=== PATIENT | female | born 1955 | race Caucasian/White ===

== ENCOUNTER 2021-09-10 10:51 | Emergency (ER) | payer OTHER, MEDICAID, SELFPAY ==
--- NOTE | ~2021-09-10 | XR_ITS ---
EXAMINATION: XR CHEST CLINICAL INFORMATION: Shortness of breath COMPARISON: 2013. TECHNIQUE: 2 views of the chest were obtained. FINDINGS: No distinct airspace consolidation. There is mild increased prominence of pulmonary vasculature but no overt edema. Underlying mild vascular congestion is a consideration. No distinct pleural effusions. XR/XR chest 2V IMPRESSION: Mild increased prominence of pulmonary vasculature compared with 2013. Underlying mild pulmonary vascular congestion is a consideration. No dominant consolidations or pleural effusions.
[2021-09-10 11:46] VITALS: BP 171/62; PULSE 80; RESP 22; TEMP 36.6; O2SAT 90; BMI 53.1
--- NOTE | 2021-09-10 11:52 | ECG_ITS ---
Test Reason : shortness of breath Blood Pressure : / mmHG Vent. Rate : 081 BPM Atrial Rate : 081 BPM P-R Int : 142 ms QRS Dur : 126 ms QT Int : 396 ms P-R-T Axes : 057 -46 090 degrees QTc Int : 460 ms Normal sinus rhythm Left axis deviation Non-specific intra-ventricular conduction block Minimal voltage criteria for LVH, may be normal variant ( Flora product ) Possible Anterolateral infarct , age undetermined Abnormal ECG When compared with ECG of 20-DEC-2007 13:57, QRS duration has increased Borderline criteria for Anterior infarct are now Present Borderline criteria for Anterolateral infarct are now Present Referred By: Generic ED Physician Electronically Signed By:Constantino Nicholas
[2021-09-10 13:14] LABS: Eosinophils Percent Auto 1.7 % (0-4); Hemoglobin 10.5 g/dl (12.0-16.0); Imm Gran Abs Auto 0.03 X10*3/uL (0.00-0.03); Imm Gran Pct Auto 1.3 % (0.0-0.4); Lymphocytes Absolute Auto 0.6 X10*3/uL (1.2-4.9); Lymphocytes Percent Auto 23.6 % (20-40); MANUAL DIFF FLAG SCAN; Mean Corpuscular HGB Conc 30.9 g/dl (31.0-35.0); Mean Corpuscular Hemoglobin 28.8 pg (27.0-33.0); Mean Corpuscular Volume 93.4 fL (80.0-98.0); Mean Platelet Volume 8.8 fL (9.4-12.3); Monocytes Absolute Auto 0.3 X10*3/uL (0.1-1.2); Monocytes Percent Auto 13.3 % (2-11); Neutrophils Absolute Auto 1.4 x10*3/uL (2.0-8.3); Neutrophils Percent Auto 60.1 % (45-73); Platelet Count 120 X10*3/uL (160-400); Red Blood Count 3.64 X10*6/uL (4.20-5.50); Red Cell Distribution Width 16.2 % (11.0-16.0); SCAN SMEAR FLAG 1
[2021-09-10 13:15] LABS: White Blood Count 2.3 X10*3/uL (4.8-10.8)
[2021-09-10 13:28] LABS: Anion Gap 11 (12-20); Blood Urea Nitrogen 43 mg/dL (9-16); Calcium 8.5 mg/dL (8.4-10.2); Carbon Dioxide 26 mmol/L (22-29); Chloride 107 mmol/L (96-108); Creatinine Clr Calc Pharmacy 29.7; Estimated Glomerular Filt Rate 19; Glucose Random 139 mg/dL (60-115); Potassium 4.9 mmol/L (3.3-5.1); Sodium 139 mmol/L (135-145)
[2021-09-10 13:34] LABS: SLIDE REVIEW VERIFIED
[2021-09-10 13:36] LABS: B Type Natriuretic Peptide 349 pg/mL (<100); Troponin-I High Sensitivity 11.2 ng/L (<3.5-17.0)
[2021-09-10] MEDS: dexAMETHasone sod phosphate 10 MG/ML VIAL IVPUSH (19:46)
[2021-09-10 19:59] LABS: Prothrombin Time 11.8 SEC (10.0-13.1)
[2021-09-10 20:01] LABS: Partial Thromboplastin Time 34.7 SEC (24.1-38.0)
[2021-09-10 20:02] VITALS: BP 194/67; PULSE 82; RESP 18; TEMP 37.4; O2SAT 93
[2021-09-10 20:04] VITALS: O2SAT 93
[2021-09-10 20:16] LABS: Troponin-I High Sensitivity 11.9 ng/L (<3.5-17.0)
--- NOTE | 2021-09-10 20:31 | ED_ITS ---
HPI - General Adult General Chief complaint: Upper Respiratory Symptoms Stated complaint: Difficulty breathing Time Seen by Provider: 09/10/21 19:24 Source: patient Mode of arrival: ambulatory Limitations: no limitations History of Present Illness HPI narrative: 66-YEAR-OLD FEMALE WITH HISTORY OF CHF CHRONIC KIDNEY DISEASE, PRESENTS TO ED FOR SHORTNESS OF BREATH SINCE BEING DIAGNOSED WITH COVID ON THE August. PATIENT STATES NO CHEST PAIN AND DENIES ANY INCREASED SWELLING OF LOWER EXTREMITY. PATIENT STATES SHE IS AFRAID TO SLEEP FLAT BECAUSE OF SHORTNESS OF BREATH. PATIENT STATES SLEEP DEprived DUE TO COVID Related Data Previous Rx's Medication Instructions Recorded albuterol sulfate 90 mcg/actuation 2 puff inhalation Q4-6H PRN 09/10/21 aerosol inhaler (Ventolin HFA) shortness of breath or wheezing #8.5 grams dexamethasone 6 mg tablet 6 mg PO DAILY 10 days #10 tabs 09/10/21 (Decadron) Allergies Allergy/AdvReac Type Severity Reaction Status Date / Time lisinopril [LISINOPRIL] Allergy Unknown KIDNEY Unverified 11/09/19 17:38 FAILURE Review of Systems Review of Systems: SHORTNESS OF BREATH AND COVID. PATIENT DENIES ANY CHEST PAIN OR INCREASED SWELLING OF LOWER EXTREMITIES. PATIENT DENIES ANY PLEURISY Yes all other systems are reviewed and are negative PMFSH Social History Social History Advance Directives: No Advance Directives Information Provided: No Physical Exam ED Vital Signs: Vital Signs - 24 hr 09/10/21 11:46 09/10/21 20:02 09/10/21 20:04 Temperature 98 F 99.4 F Pulse Rate 80 82 Respiratory Rate 22 H 18 Blood Pressure 171/62 H 194/67 H Pulse Oximetry 90 L 93 93 Oxygen Delivery Method Room Air Room Air Room Air BMI result Body Mass Index 53.1 Const General: cooperative, healthy appearing, comfortable, no acute distress, well developed, alert, awake and Physically active Orientation/consciousness: patient oriented x3 HENMT Head: Yes normal to inspection, Yes No palpable skull fracture present, Yes normocephalic, Yes atraumatic and No abrasion Eyes General: appearance normal, both eyes and all related structures Neck Neck: Yes normal visual inspection, Yes full ROM, Yes no lymphadenopathy, Yes no meningeal signs, Yes trachea midline, Yes supple, No anterior neck swelling and No tender Chest Chest palpation & inspection: normal inspection of the chest and normal palpation of entire chest wall Resp Effort & Inspection: normal respiratory effort and able to speak in complete sentences Auscultation: clear to auscultation bilaterally Cardio Jugular venous distension: no JVD Heart sounds: S1 normal heart sound present and S2 normal heart sound present GI Inspection: Yes normal to inspection and No abdominal wall ecchymosis Palpation (GI): Soft to palpation, not firm, nontender, no guarding and not rigid General: No CVA tenderness and Yes no CVA tenderness Back/Spine/Pelvis Back: no CVA tenderness, No CVA tenderness and No back tenderness Skin General skin exam: no rashes or lesions noted and elasticity normal Neuro General: patient oriented x3, gait normal, no meningeal signs and CN's II-XI intact bilaterally Cranial nerves: Yes CN's II-XII intact bilaterally Extrem Other: BILATERAL LOWER EXTREMITY SWELLING, PITTING EDEMA PATIENT'S CHF. PATIENT STATES HAS BEEN THE SAME SIZE FOR MONTHS. PATIENT DENIES ANY CALF PAIN Psych Appearance: grossly normal, well kempt and not disheveled Course Course Course Narrative: O2 SAT AT 11:00 WAS 90% NURSE DID RAPID MEDICAL SCREENING INCLUDING LABS AND CHEST X-RAY. Reevaluation(s) Reevaluation #1: SECOND TROPONIN CAME BACK NEGATIVE. EKG NEGATIVE STEMI. PATIENT ON AMBULATION O2 SAT WAS 90-93% WHICH IS HER BASELINE WITH ANY DROPPED TO 85%. PATIENT GIVEN DECADRON. PATIENT WAS INFORMED SHE WILL NEED TO BE ADMITTED FOR OBSERVATION AND IMPROVEMENT OPTIMIZATION OF OXYGEN SATURATION. PATIENT INFORM HER OXYGEN STABLE AT REST BUT DROPPED TO 85 SO SHE WILL NEED MOST LIKELY CONTINUOUS DECADRON WHILE ADMITTED AND REDEMSEVIR AND OTHER COVID COCKTAIL MEDS. PATIENT ALSO I HIGH RISK DUE TO HISTORY OF CHF WHICH CAN deteriorate WITH THE COVID. PATIENT EXPLAINED RISK OF , OK, REspiratory failure, PE, and others and she SHE STILL HAS SIGNED AGAINST MEDICAL ADVICE Time: 20:37 Medical Decision Making MDM Narrative Medical decision making narrative: cOVID VS. chf Lab Data Result diagrams: 09/10/21 13:04 09/10/21 13:04 Labs: Lab Results 09/10/21 09/10/21 09/10/21 Range/Units 13:04 13:04 13:04 WBC 2.3 L (4.8-10.8) X10*3/uL RBC 3.64 L (4.20-5.50) X10*6/uL Hgb 10.5 L (12.0-16.0) g/dl Hct 34.0 L (37.0-47.0) % MCV 93.4 (80.0-98.0) fL MCH 28.8 (27.0-33.0) pg MCHC 30.9 L (31.0-35.0) g/dl RDW 16.2 H (11.0-16.0) % Plt Count 120 L (160-400) X10*3/uL MPV 8.8 L (9.4-12.3) fL Immature Gran % (Auto) 1.3 H (0.0-0.4) % Neut % (Auto) 60.1 (45-73) % Lymph % (Auto) 23.6 (20-40) % [place] % (Auto) 13.3 H (2-11) % Eos % (Auto) 1.7 (0-4) % Baso % (Auto) 0.0 (0-2) % Lymph # (Auto) 0.6 L (1.2-4.9) X10*3/uL [place] # (Auto) 0.3 (0.1-1.2) X10*3/uL Eos # (Auto) 0.0 (0.0-0.4) X10*3/uL Baso # (Auto) 0.0 (0.0-0.2) X10*3/uL Abs Immat Gran (auto) 0.03 (0.00-0.03) X10*3/uL Absolute Neuts (auto) 1.4 L (2.0-8.3) x10*3/uL Absolute Nucleated RBC 0.000 (0.0-0.012) X10*3/uL Nucleated RBC % (auto) 0.0 (0.0-0.2) /100WBC Smear Tech's Comments VERIFIED PT (10.0-13.1) SEC INR (0.9-1.1) APTT (24.1-38.0) SEC Sodium 139 (135-145) mmol/L Potassium 4.9 (3.3-5.1) mmol/L Chloride 107 (96-108) mmol/L Carbon Dioxide 26 (22-29) mmol/L Anion Gap 11 L (12-20) BUN 43 H (9-16) mg/dL Creatinine 2.49 H (0.5-1.4) mg/dL Estim Creat Clear Calc 29.7 Estimated GFR 19 Random Glucose 139 H (60-115) mg/dL Calcium 8.5 (8.4-10.2) mg/dL Troponin I High Sens 11.2 (<3.5-17.0) ng/L B-Natriuretic Peptide 349 H (<100) pg/mL 09/10/21 09/10/21 Range/Units 19:41 19:41 WBC (4.8-10.8) X10*3/uL RBC (4.20-5.50) X10*6/uL Hgb (12.0-16.0) g/dl Hct (37.0-47.0) % MCV (80.0-98.0) fL MCH (27.0-33.0) pg MCHC (31.0-35.0) g/dl RDW (11.0-16.0) % Plt Count (160-400) X10*3/uL MPV (9.4-12.3) fL Immature Gran % (Auto) (0.0-0.4) % Neut % (Auto) (45-73) % Lymph % (Auto) (20-40) % [place] % (Auto) (2-11) % Eos % (Auto) (0-4) % Baso % (Auto) (0-2) % Lymph # (Auto) (1.2-4.9) X10*3/uL [place] # (Auto) (0.1-1.2) X10*3/uL Eos # (Auto) (0.0-0.4) X10*3/uL Baso # (Auto) (0.0-0.2) X10*3/uL Abs Immat Gran (auto) (0.00-0.03) X10*3/uL Absolute Neuts (auto) (2.0-8.3) x10*3/uL Absolute Nucleated RBC (0.0-0.012) X10*3/uL Nucleated RBC % (auto) (0.0-0.2) /100WBC Smear Tech's Comments PT 11.8 (10.0-13.1) SEC INR 1.0 (0.9-1.1) APTT 34.7 (24.1-38.0) SEC Sodium (135-145) mmol/L Potassium (3.3-5.1) mmol/L Chloride (96-108) mmol/L Carbon Dioxide (22-29) mmol/L Anion Gap (12-20) BUN (9-16) mg/dL Creatinine (0.5-1.4) mg/dL Estim Creat Clear Calc Estimated GFR Random Glucose (60-115) mg/dL Calcium (8.4-10.2) mg/dL Troponin I High Sens 11.9 (<3.5-17.0) ng/L B-Natriuretic Peptide (<100) pg/mL ECG Data Interpretation: Normal sinus rhythm. Ventricular rate 81. Pr interval 142. QRS 126 QTC 460. Negative STEMI Discharge Plan Discharge Clinical Impression: COVID-19, CHF (congestive heart failure) Patient Disposition: Left Against Medical Advice Instructions: Heart Failure (DC), COVID-19 (Coronavirus Disease 2019) (ED) Additional Instructions: YOU WOULD NOT LIKE TO BE ADMITTED. RETURN TO THE ED IMMEDIATELY FOR ANY CHEST PAIN, SHORTNESS OF BREATH, INCREASED LEG SWELLING, CALF PAIN, COUGHING UP BLOOD, WEAKNESS, DIZZINESS, OR ANY OTHER CONCERNING SYMPTOMS Prescriptions: New dexamethasone [Decadron] 6 mg tablet 6 mg PO DAILY 10 Days Qty: 10 0RF albuterol sulfate [Ventolin HFA] 90 mcg/actuation HFA aerosol inhaler 2 puff inhalation Q4-6H PRN (Reason: shortness of breath or wheezing) Qty: 8.5 0RF Stand Alone Forms: Against Medical Advice Interventions: ED Discharge Assessment Last Done: 09/10/21 21:03 Discharge Date/Time: 09/10/21 21:04 Print Language: Chadian
== END 2021-09-10 21:04 | disposition left against medical advice (07) ==
PROVIDERS: Physician Assistant; Emergency Provider Internal Medicine
DX: U07.1 COVID-19 (principal); R06.02 Shortness of breath; I50.9 Heart failure, unspecified; Z79.899 Other long term (current) drug therapy
CPT/HCPCS: 36415; 71046; 80048; 83880; 84484; 85025; 85610; 85730; 93005; 96374; 99284; J1100

== ENCOUNTER 2022-12-02 10:45 | Outpatient (AMB) | payer OTHER, MEDICAID, SELFPAY ==
--- NOTE | 2022-12-02 11:24 | MHC.PC.OV ---
Vital Signs 12/02/22 11:25 Height 5 ft 3 in Weight 295 lb 6 oz BMI 52.3 BP 138/76 Blood Pressure Location Rt brachial Position Sitting Pulse 69 Pulse Source Pulse Oximeter Pulse Oximetry (%) 98 Oxygen Delivery Method Room Air Intake Visit Reasons: 6 month follow up Allergies lisinopril [LISINOPRIL] Allergy (Unknown, Unverified 12/02/22 12:33) KIDNEY FAILURE Medication List - Last Reconciled 12/02/22 by DESI Mendieta acetaminophen 500 mg PO Q6H PRN albuterol sulfate 90 mcg/actuation (Ventolin HFA) 2 puffs inhalation Q4-6H PRN B-complex with vitamin C 1 tab PO DAILY carvedilol mg PO cholecalciferol (vitamin D3) 50 mcg PO DAILY furosemide 60 mg PO DAILY glipizide mg PO BID insulin glargine (Lantus Solostar U-100 Insulin) units subcut isosorbide mononitrate ER mg PO levothyroxine mcg PO DAILY pioglitazone mg PO DAILY rosuvastatin mg PO DAILY Tobacco use date assessed: 12/02/22 Fall risk assessment: No Falls in past year Last assessed Fall Risk: 12/02/22 Dental Screening Dental Screen Date: 12/02/22 Did you have a dental visit in the last 12 months?: Yes Did you have a dental problem in the last 6 months where you did not have access to dental care?: No Was dental information given to patient?: Patient has dentist HPI 6 month follow up HPI Details HTN: Blood pressure is stable, managed with carvedilol 6.25mg, furosemide 60mg, and isosorbide mononitrate 30mg. Denies chest pain, shortness of breath, headache, dizziness, and blurred vision. Pt follows up with endo, cardiology, and nephrology. Will order more lab work [facility] Medical History Diabetes Lower extremity weakness Social History Housing: House Patient Tobacco Use Status: Former Tobacco user Quit Date: 04/06/2012 e-Cigarette/Vaping Use: Never Used Second Hand Smoke Exposure: No Current occupational status: retired Cognitive needs: No Hearing needs: No Vision needs: No Questionnaire Thrive Questionnaire Date Thrive assessed: 11/09/22 PRIYA-7 AMB Questionnaire PRIYA-7 Date PRIYA - 7 assessed: 12/31/21 Source: Developed by DrsEze Riggs, Carol Sullivan, Turner Sinha and colleagues, with an educational thom from [employer]. Review of Systems Const Reports as per HPI Physical exam (Primary Care) Vital Signs: Last Vital Signs Pulse 69 12/02/22 11:25 Pulse Ox 98 12/02/22 11:25 Oxygen Delivery Method Room Air 12/02/22 11:25 BMI result Body Mass Index 52.3 Tobacco/Smoking Status: Tobacco use Status Tobacco use date assessed 12/02/22 12/02/22 11:30 Patient Tobacco Use Status Former Tobacco user 12/02/22 11:30 e-Cigarette/Vaping Use Never Used 12/02/22 11:30 Thrive Assessment: Date of Thrive Assessment Date Thrive assessed 12/31/21 12/02/22 11:30 Const Other: using rolling/seated walker General: cooperative Nutritional Appearance: obese morbidly obese Orientation/consciousness: patient oriented x3 Resp Effort & Inspection: normal respiratory effort Auscultation: clear to auscultation bilaterally Cardio Rate: regular rate Rhythm: regular rhythm Heart sounds: S1 normal heart sound present, S2 normal heart sound present and Murmur heart sound present (? faint systolic) Neuro General: patient oriented x3 Extrem Other: +1 pitting to BLE Psych Appearance: grossly normal Mental Status: mental status grossly normal Speech and movement: Normal speech and movement present Affect: normal affect Attitude: cooperative Thought process: Normal thought process present Thought content: Normal thought content present Insight: Good insight present (Psych) Judgement: Good judgement present (Psych) Assessment and Plan Assessment & Plan (1) HTN (hypertension): Code(s): I10 - Essential (primary) hypertension Plan: Labs ordered Plan The patient agreed to the use of a health care / medical job titles for this encounter. Scribed for DESI Giang by Perla Rizo health care / medical job titles, on 12/02/2022 at 11:35 EST Orders: Orders Comprehensive [place]. Panel Fast Today I10 - Essential (primary) hypertension TSH reflex Free T4 Today I10 - Essential (primary) hypertension Complete Blood Count Auto Diff Today I10 - Essential (primary) hypertension UA CC w/rflx Micro + Cult Today I10 - Essential (primary) hypertension Lipid Panel Today I10 - Essential (primary) hypertension Coding Level of Care Code Est Pt Level 3 (94376) Diagnoses HTN (hypertension) I10
[2022-12-02 11:25] VITALS: BP 138/76; PULSE 69; O2SAT 98; BMI 52.3
== END 2022-12-02 12:12 | disposition home or self-care (01) ==
PROVIDERS: Visit Provider Nurse Practitioner Family
DX: I10 Essential (primary) hypertension (principal)
CPT/HCPCS: 99213

== ENCOUNTER 2023-04-30 08:23 | Outpatient (REF) | payer OTHER, MEDICAID, SELFPAY ==
[2023-04-30 11:24] LABS: MANUAL DIFF FLAG NO
[2023-04-30 11:32] LABS: Basophils Percent Auto 0.6 % (0-2); Eosinophils Absolute Auto 0.3 X10*3/uL (0.0-0.4); Eosinophils Percent Auto 4.2 % (0-4); Hematocrit 36.2 % (37.0-47.0); Hemoglobin 11.1 g/dl (12.0-16.0); Imm Gran Abs Auto 0.04 X10*3/uL (0.00-0.03); Imm Gran Pct Auto 0.6 % (0.0-0.4); Lymphocytes Absolute Auto 0.6 X10*3/uL (1.2-4.9); Lymphocytes Percent Auto 9.4 % (20-40); Mean Corpuscular HGB Conc 30.7 g/dl (31.0-35.0); Mean Corpuscular Hemoglobin 28.8 pg (27.0-33.0); Mean Platelet Volume 9.5 fL (9.4-12.3); Monocytes Absolute Auto 0.5 X10*3/uL (0.1-1.2); Monocytes Percent Auto 7.3 % (2-11); Neutrophils Absolute Auto 5.1 x10*3/uL (2.0-8.3); Neutrophils Percent Auto 77.9 % (45-73); Platelet Count 199 X10*3/uL (160-400); Red Blood Count 3.85 X10*6/uL (4.20-5.50); Red Cell Distribution Width 16.6 % (11.0-16.0); White Blood Count 6.6 X10*3/uL (4.8-10.8)
[2023-04-30 12:03] LABS: Alanine Aminotransferase 17 U/L (0-31); Albumin Level 4.1 g/dL (3.5-5.0); Alkaline Phosphatase 69 U/L (39-117); Anion Gap 17 (12-20); Aspartate Amino Transferase 14 U/L (5-31); Bilirubin Total 0.5 mg/dL (0.0-1.0); Blood Urea Nitrogen 69 mg/dL (9-16); Calcium 9.4 mg/dL (8.4-10.2); Carbon Dioxide 30 mmol/L (22-29); Chloride 103 mmol/L (96-108); Estimated Glomerular Filt Rate 16; Glucose Random 92 mg/dL (60-115); Magnesium 2.3 mg/dL (1.6-2.6); Phosphorus 4.6 mg/dL (2.7-4.5); Potassium 4.7 mmol/L (3.3-5.1); Sodium 145 mmol/L (135-145); Total Protein 7.5 g/dL (6.5-8.0); Uric Acid 9.8 mg/dL (2.4-5.7)
[2023-04-30 12:08] LABS: Creatinine Urine 72.49 mg/dL; Protein/Creatinine Ratio, Ur 1.74 (<0.2); Total Protein Urine Random 126 mg/dL (<12)
[2023-04-30 12:12] LABS: Parathyroid Hormone Intact 399.1 pg/mL (8.7-77.1)
[2023-04-30 12:17] LABS: Vitamin D 25-OH Total 33.2 ng/mL (>30)
== END 2023-04-30 08:24 | disposition home or self-care (01) ==
LOC: HO.HMGCLDS 08:23
PROVIDERS: PCP Nurse Practitioner Family; Visit Provider Internal Medicine Nephrology
DX: I13.0 Hypertensive heart and chronic kidney disease with heart failure and stage 1 through stage 4 chronic kidney disease, or unspecified chronic kidney disease (principal); E11.22 Type 2 diabetes mellitus with diabetic chronic kidney disease; N18.4 Chronic kidney disease, stage 4 (severe); I50.9 Heart failure, unspecified; R80.8 Other proteinuria; E87.5 Hyperkalemia; R60.9 Edema, unspecified
CPT/HCPCS: 36415; 80053; 82306; 82570; 83735; 83970; 84100; 84156; 84550; 85025

== ENCOUNTER 2023-07-29 14:49 | Outpatient (AMB) | payer OTHER, MEDICAID, SELFPAY ==
--- NOTE | 2023-07-29 15:31 | A.OFFPC_ITS ---
Vital Signs 07/29/23 15:34 Height 5 ft 3 in Weight 299 lb BMI 53.0 BP 128/78 Blood Pressure Location Rt brachial Position Sitting Pulse 69 Pulse Source Pulse Oximeter Pulse Oximetry (%) 96 Oxygen Delivery Method Room Air Intake Visit Reasons: 6 month fu/multiple issues Intake Note: Patient here to discuss recent SOB. Allergies lisinopril [LISINOPRIL] Allergy (Unknown, Unverified 07/29/23 15:38) KIDNEY FAILURE cephalexin Adverse Reaction (Mild, Verified 07/29/23 15:38) hives sulfamethoxazole [From Sulfamethoxazole-Trimethoprim] Adverse Reaction (Mild, Verified 07/29/23 15:38) Hives trimethoprim [From Sulfamethoxazole-Trimethoprim] Adverse Reaction (Mild, Verified 07/29/23 15:38) Hives Tobacco use date assessed: 07/29/23 Fall risk assessment: 1 Fall in past year Last assessed Fall Risk: 07/29/23 Dental Screening Dental Screen Date: 07/29/23 Was dental information given to patient?: Patient declined HPI 6 month fu/multiple issues HPI Details Pt is in tears, reporting some depression due to the fact that she will be going on dialysis in the future, and has a close friend that is dying. Pt denies any si or hi. I explained to her the dialysis does not mean , and the fact that the dialysis centers tend to be a very friendly environment (staff and other dialysis pts). She mentioned 4 hrs 3 times a week, which i explained that is a total of 12hrs out of a whole week. Pt did seem much more at ease after our conversation. SHe further brought up fears of going over bridges, being in a car altogether. Plan is to start a very low dose of sertraline and follow up with her. [facility] Medical History Diabetes Lower extremity weakness Social History Housing: House Patient Tobacco Use Status: Former Tobacco user e-Cigarette/Vaping Use: Never Used Second Hand Smoke Exposure: No Current occupational status: retired Cognitive needs: No Hearing needs: No Vision needs: No Questionnaire PHQ-9 Over the last 2 weeks, how often have you been bothered by any of the following problems? 1. Little interest or pleasure in doing things: not at all 2. Feeling down, depressed, or hopeless: several days 3. Trouble falling or staying asleep, or sleeping too much: not at all 4. Feeling tired or having little energy: several days 5. Poor appetite or overeating: not at all 6. Feeling bad about yourself - or that you are a failure or have let yourself or your family down: not at all 7. Trouble concentrating on things, such as reading the newspaper or watching television: not at all 8. Moving or speaking so slowly that other people could have noticed. Or the opposite - being so fidgety or restless that you have been moving around a lot more than usual: not at all 9. Thoughts that you would be better off or of hurting yourself in some way: not at all Total score: 2 Depression Screening Interpretation: Negative Depression Screening Done: Yes 19345 - PHQ-9 Billing: Yes Source: Developed by Drs. Cornel Riggs, Carol Sullivan, Turner Sinha and colleagues, with an educational thom from [employer]. Thrive Questionnaire Date Thrive assessed: 07/29/23 I am a: Patient What is your living situation today?: I have a steady place to live Within the past 12 months, did the food you bought not last and you didn't have the money to get more?: Never true Within the past 12 months, did you worry whether your food would run out before you got money to buy more?: Never true Do you have trouble paying for medicines?: No Do you have trouble getting transportation to medical appointments?: No Do you have trouble paying your heating and electricity bill?: No Do you have trouble taking care of your child, family member or friend?: No Do you have trouble with day-to-day activities such as bathing, preparing meals, shopping, managing finances, etc.?: No Are you currently unemployed and looking for a job?: No Are you interested in more education?: No Currently or been in a relationship where the following occur: I choose not to answer this question THRIVE Score: 0 PRIYA-7 AMB Questionnaire PRIYA-7 Date PRIYA - 7 assessed: 07/29/23 Feeling nervous, anxious, or on edge: 1 = Several days Not being able to stop or control worryin = Not at all Worrying too much about different things: 0 = Not at all Trouble relaxin = Not at all Being so restless that it is hard to sit still: 0 = Not at all Becoming easily annoyed or irritable: 0 = Not at all Feeling afraid as if something awful might happen: 0 = Not at all Total PRIYA-7 score (0-4 normal; 5-9 mild; 10-14 moderate; 15-21 severe): 1 Source: Developed by Drs. Cornel Riggs, Carol Sullivan, Turner Sinha and colleagues, with an educational thom from [employer]. PRIYA-7 Assessment Billing PRIYA-7 Assessment Tool: PRIYA-7 Assessment 13120 Review of Systems Const Reports as per HPI Physical exam (Primary Care) Vital Signs: Last Vital Signs Pulse 69 07/29/23 15:34 BP 128/78 07/29/23 15:34 Pulse Ox 96 07/29/23 15:34 Oxygen Delivery Method Room Air 07/29/23 15:34 BMI result Body Mass Index 53.0 Tobacco/Smoking Status: Tobacco use Status Tobacco use date assessed 07/29/23 07/29/23 15:41 Patient Tobacco Use Status Former Tobacco user 07/29/23 15:31 e-Cigarette/Vaping Use Never Used 07/29/23 15:31 PHQ-9: PHQ-9 Score PHQ-9: Total score 2 07/29/23 16:01 Depression Screening Interpretation: Negative Thrive Assessment: Date of Thrive Assessment Date Thrive assessed 07/29/23 07/29/23 15:59 Currently or been in a relationship where the following occur: I choose not to answer this question Const Other: using a rolling walker General: cooperative Nutritional Appearance: obese morbidly obese Orientation/consciousness: patient oriented x3 Resp Effort & Inspection: normal respiratory effort Auscultation: clear to auscultation bilaterally Cardio Rate: regular rate Rhythm: regular rhythm Heart sounds: S1 normal heart sound present and S2 normal heart sound present Neuro General: patient oriented x3 Psych Appearance: grossly normal Mental Status: mental status grossly normal Speech and movement: Normal speech and movement present Affect: normal affect Attitude: cooperative Thought process: Normal thought process present Thought content: Normal thought content present Insight: Good insight present (Psych) Judgement: Good judgement present (Psych) Assessment and Plan Assessment & Plan (1) Tearfulness: Code(s): R45.89 - Other symptoms and signs involving emotional state Plan: pt was more at ease after explaining the dialysis process. (2) Depression with anxiety: Code(s): F41.8 - Other specified anxiety disorders Plan: starting low dose sertraline, will follow up with her Plan The patient agreed to the use of a medical social worker for this encounter. Scribed for DESI Giang by Perla Rizo medical social worker, on 07/29/2023 at 16:00 EST. Medications: New sertraline 25 mg PO DAILY 90 tabs 0RF Refilled miscellaneous medical supply Access ramp due to weakness of Bilat lower extremities. 1 ea miscellaneous .daily use 1 ea 0RF Coding Level of Care Code Est Pt Level 3 (61380) Diagnoses Tearfulness R45.89 Depression with anxiety F41.8 Additional Codes PRIYA-7 Assessment Billing - PRIYA-7 Assessment Tool: PRIYA-7 Assessment 10653 ([id number])
[2023-07-29 15:34] VITALS: BP 128/78; PULSE 69; O2SAT 96; BMI 53.0
== END 2023-07-29 16:40 | disposition home or self-care (01) ==
PROVIDERS: PCP Nurse Practitioner Family; Visit Provider Nurse Practitioner Family
DX: R45.89 Other symptoms and signs involving emotional state (principal); F41.8 Other specified anxiety disorders
CPT/HCPCS: 99213

== ENCOUNTER 2023-11-04 09:20 | Outpatient (REF) | payer OTHER, MEDICAID, SELFPAY ==
--- NOTE | ~2023-11-04 | XR_ITS ---
EXAMINATION: XR CHEST CLINICAL INFORMATION: Orthopnea COMPARISON: 09/10/2021 TECHNIQUE: 2 views of the chest were obtained. FINDINGS: There is marked cardiomegaly. There is pulmonary vascular congestion with upper zone redistribution and interstitial prominence. No consolidations or pleural effusions are seen XR/XR chest 2V IMPRESSION: Cardiomegaly with mild CHF. Electronically signed by: Joel Hall MD 11/04/2023 03:25 PM EDT RP
[2023-11-04 13:21] LABS: Appearance Urine Cloudy; Color Urine Yellow; Glucose Urine UA Negative (Negative); Leukocyte Esterase Urine Moderate (2+) (Negative); Nitrite Urine Negative (Negative); Specific Gravity - Urine 1.015 (1.005-1.025); UMIC TRIGGER UACC YES; Urine Blood Negative (Negative); Urine Ketones Negative (Negative); Urine Protein 100 (2+) mg/dL (Neg-Trace)
[2023-11-04 13:24] LABS: MANUAL DIFF FLAG NO
[2023-11-04 13:25] LABS: Bacteria Urine 4+ (None Seen); RBC Urine 0-2 /HPF (0-2); Squamous Epithelial Cell Urine 0-2 /HPF (0-2); UACC Culture Trigger YES; WBC Urine >50 /HPF (0-5)
[2023-11-04 13:59] LABS: Basophils Percent Auto 0.3 % (0-2); Eosinophils Absolute Auto 0.2 X10*3/uL (0.0-0.4); Eosinophils Percent Auto 2.5 % (0-4); Hematocrit 37.6 % (37.0-47.0); Hemoglobin 11.6 g/dl (12.0-16.0); Imm Gran Abs Auto 0.06 X10*3/uL (0.00-0.03); Imm Gran Pct Auto 0.9 % (0.0-0.4); Lymphocytes Absolute Auto 0.6 X10*3/uL (1.2-4.9); Lymphocytes Percent Auto 9.9 % (20-40); Mean Corpuscular HGB Conc 30.9 g/dl (31.0-35.0); Mean Corpuscular Hemoglobin 30.2 pg (27.0-33.0); Mean Corpuscular Volume 97.9 fL (80.0-98.0); Mean Platelet Volume 9.6 fL (9.4-12.3); Monocytes Absolute Auto 0.4 X10*3/uL (0.1-1.2); Monocytes Percent Auto 6.4 % (2-11); Neutrophils Absolute Auto 5.1 x10*3/uL (2.0-8.3); Platelet Count 166 X10*3/uL (160-400); Red Blood Count 3.84 X10*6/uL (4.20-5.50); Red Cell Distribution Width 16.9 % (11.0-16.0); White Blood Count 6.4 X10*3/uL (4.8-10.8)
[2023-11-04 14:04] LABS: Parathyroid Hormone Intact 368.1 pg/mL (8.7-77.1)
[2023-11-04 14:13] LABS: Alanine Aminotransferase 17 U/L (0-31); Albumin Level 4.2 g/dL (3.5-5.0); Alkaline Phosphatase 55 U/L (39-117); Anion Gap 14 (12-20); Aspartate Amino Transferase 17 U/L (5-31); Bilirubin Total 0.5 mg/dL (0.0-1.0); Blood Urea Nitrogen 64 mg/dL (9-16); Calcium 9.8 mg/dL (8.4-10.2); Carbon Dioxide 28 mmol/L (22-29); Chloride 106 mmol/L (96-108); Cholesterol 107 mg/dL (<200); Estimated Glomerular Filt Rate 16; Glucose Random 66 mg/dL (60-115); HDL Cholesterol 37 mg/dL (>40); LDL Cholesterol Calculated 51 mg/dL (<100); Magnesium 2.6 mg/dL (1.6-2.6); Phosphorus 4.2 mg/dL (2.7-4.5); Potassium 4.8 mmol/L (3.3-5.1); Sodium 143 mmol/L (135-145); Total Protein 7.3 g/dL (6.5-8.0); Triglycerides 99 mg/dL (<150); Uric Acid 9.7 mg/dL (2.4-5.7)
[2023-11-04 14:17] LABS: TSH reflex Free T4 3.53 uIU/mL (0.32-4.0); Vitamin D 25-OH Total 28.7 ng/mL (>30)
[2023-11-04 14:22] LABS: Creatinine Urine 64.68 mg/dL; Protein/Creatinine Ratio, Ur 1.35 (<0.2); Total Protein Urine Random 87 mg/dL (<12)
== END 2023-11-04 09:21 | disposition home or self-care (01) ==
LOC: HO.HMGCX 09:20
PROVIDERS: PCP Nurse Practitioner Family; Referring Provider Internal Medicine Nephrology; Visit Provider Nurse Practitioner Family
DX: I13.0 Hypertensive heart and chronic kidney disease with heart failure and stage 1 through stage 4 chronic kidney disease, or unspecified chronic kidney disease (principal); E11.22 Type 2 diabetes mellitus with diabetic chronic kidney disease; N18.4 Chronic kidney disease, stage 4 (severe); I50.9 Heart failure, unspecified; D63.1 Anemia in chronic kidney disease; E55.9 Vitamin D deficiency, unspecified; E78.5 Hyperlipidemia, unspecified; E87.5 Hyperkalemia; R80.8 Other proteinuria; E21.1 Secondary hyperparathyroidism, not elsewhere classified
CPT/HCPCS: 36415; 71046; 80053; 80061; 81001; 82306; 82570; 83735; 83970; 84100; 84156; 84443; 84550; 85025; 87086; 87088; 87186

== ENCOUNTER → 2023-11-09 13:49 | Outpatient (REF) | payer OTHER, MEDICAID, SELFPAY ==
--- NOTE | 2023-11-09 13:53 | CA_ITS ---
Transthoracic Echocardiogram Patient (Last, First, Middle): Kiara Pollack, Gender: Female Date of : 1955 Age: 68 Procedure Date: 11/09/2023 Procedure Type: Transthoracic Echocardiogram Location: OP Height: 160.02 cm Weight: 136.08 kg BSA: 2.30 m2 Heart Rate: 76 bpm BP: 138 / 82 mmHg Wheat [employer] Oats Flake Miller: Referring MD: Gómez Peoples [facility]- Cadmium Plater: Nestor Iqbal MD Symptoms: R06.01 - Orthopnea Study Quality: Adequate ECG Rhythm: Sinus Conclusions: - 1. Normal LV ejection fraction 55-60% with mild LVH with impaired relaxation filling pattern 2. Mildly dilated left atrium 3. Normal cardiac valvular Doppler 4. Normal RV systolic pressure 5. Moderate pericardial effusion without any obvious evidence of tamponade Findings Left Ventricle Normal left ventricular size and systolic function. There is mildly increased left ventricular wall thickness. The visually estimated ejection fraction is between 55-60%. Spectral Doppler is indicative of an impaired relaxation filling pattern. E/E prime ratio is between 8 and 15 consistent with indeterminate filling pressures. Right Ventricle Normal right ventricular cavity size and systolic function. Atria The left atrium is mildly dilated. Interatrial shunt cannot be excluded. The right atrium is normal in size. Aortic Valve The aortic valve was not well visualized. There is no aortic valve stenosis. There is no aortic valve regurgitation. Mitral Valve Normal mitral valve structure and function. There is trace mitral valve regurgitation. There is no mitral valve stenosis. Pulmonic Valve The pulmonic valve was not well visualized. Tricuspid Valve Likely normal tricuspid valve structure and function. There is trace tricuspid valve regurgitation. The right ventricular systolic pressure is normal. The right ventricular systolic pressure is 34 mmHg. Normal right atrial pressure. There is no evidence of pulmonary hypertension. Great Vessels The aorta was not well visualized. The pulmonary artery was not well visualized. There is no dilatation of the ascending aorta measuring 2.80 cm. Venous The inferior vena cava is normal in size and collapses greater than 50% with inspiration. Pericardium/Pleural There is a moderate circumferential pericardial effusion. There are no definitive echocardiographic findings of tamponade physiology. The inferior vena cava is normal in size with preserved respiratory variability. No discernable variation of the mitral valve and tricuspid valve Doppler velocities with respiration. Prior Study Comparison No prior study available for comparison. Measurements 2D Linear Measurements IVSd: 1.35 0.6-0.9/0.6-1.0 cm LVIDd: 4.23 3.9-5.3/4.2-5.9 cm LVIDd Index: 1.84 2.4-3.2/2.2-3.1 cm/m2 LVIDs: 2.72 2.0-3.6 cm LVPWd: 1.31 0.7-1.1 cm Ao Root: 2.80 2.1-3.5 cm LA Diam: 4.70 2.7-3.8/3.0-4.0 cm LAIDs Index: 2.04 1.5-2.3 cm/m2 LV Mass: 261.45 67-162/88-224 g LV Mass Index: 113.67 43-95/49-115 g/m2 LVOT Diam: 2.40 3.0+(-)1.3 cm Mitral Valve MV Pk E: 0.98 MV PK A: 1.01 MV Decel Time: 187.00 E/A: 1.00 E'Lateral: 4.13 E'Medial: 5.55 E/E' Med: 17.60 E/E' Lat: 23.70 PHT: 55.00 MVA PHT: 4.00 Decel [place]: 5.25 Aortic Valve AoV Pk Alexandru: 1.54 AoV Mn Alexandru: 1.06 AoV VTI: 0.40 AoV Pk Grad: 9.00 Aov Mn Grad: 5.00 LALITHA Cont.VTI: 2.39 LVOT LVOT Pk Alexandru: 0.77 LVOT Mn Alexandru: 0.55 LVOT VTI: 0.21 LVOT Pk Grad: 2.00 LVOT Mn Grad: 1.00 LVOT Diam: 2.40 LVOT Area: 4.52 Diastolic Function MV Pk E: 0.98 MV Pk A: 1.01 E/A: 1.00 E'Medial: 5.55 E/E' Med: 17.60 E' Laterial: 4.13 E/E' Lat: 23.70 Right Ventricle TAPSE (mm): 28.00 TVS' Alexandru: 12.00 Tricuspid Valve TR Pk Alexandru: 2.80 TR Pk Grad: 31.00 RA Press: 3.00 RVSP: 34.00 Great Vessels Aorta Ao Root-2D: 2.80 2.0-3.7 cm Ao Asc: 2.80 2.1-3.4 cm Pulmonary Valve PV Pk Alexandru: 0.99 Peak PV Grad: 4.00 Updated in Other Vendor System with Status of Final Nestor Iqbal MD electronically signed on 11/10/2023 6:12:07 PM with status of Final
== END ==
LOC: HO.CARD 13:49
PROVIDERS: PCP Nurse Practitioner Family; Visit Provider Nurse Practitioner Family
DX: R06.01 Orthopnea (principal)
CPT/HCPCS: 93306

== ENCOUNTER → 2023-11-09 13:53 | Outpatient (BNV) | payer OTHER, MEDICAID, SELFPAY | PROVIDERS: PCP Nurse Practitioner Family; Visit Provider Internal Medicine Cardiovascular Disease | DX: I31.39 Other pericardial effusion (noninflammatory) (principal); R93.1 Abnormal findings on diagnostic imaging of heart and coronary circulation | CPT/HCPCS: 93306 ==

== ENCOUNTER 2023-12-07 12:51 | Outpatient (AMB) | payer OTHER, MEDICAID, SELFPAY ==
[2023-12-07 12:55] VITALS: BP 124/74; PULSE 79; O2SAT 93; BMI 54.0
--- NOTE | 2023-12-07 12:55 | MHC.PC.OV ---
Vital Signs 12/07/23 12:55 Height 5 ft 3 in Weight 305 lb BMI 54.0 BP 124/74 Blood Pressure Location Rt brachial Position Sitting Pulse 79 Pulse Source Pulse Oximeter Pulse Oximetry (%) 93 Oxygen Delivery Method Room Air Intake Visit Reasons: Annual PE Intake Note: pt is here for annual exam,last a1c was 08/2022 for 8.3%, A1c done in office today. Shoeblack Required: No Accompanied by: Self / Same As Patient Allergies lisinopril [LISINOPRIL] Allergy (Unknown, Verified 12/07/23 17:03) KIDNEY FAILURE cephalexin Adverse Reaction (Mild, Verified 12/07/23 17:03) hives sulfamethoxazole [From Sulfamethoxazole-Trimethoprim] Adverse Reaction (Mild, Verified 12/07/23 17:03) Hives trimethoprim [From Sulfamethoxazole-Trimethoprim] Adverse Reaction (Mild, Verified 12/07/23 17:03) Hives Medication List - Last Reconciled 12/07/23 by WING [place] acetaminophen 500 mg PO Q6H PRN aspirin (Adult Low Dose Aspirin) 81 mg orally 3x week; B-complex with vitamin C 1 tab PO DAILY carvedilol mg PO BID cholecalciferol (vitamin D3) 50 mcg orally 1 daily, wednesday 2tabs; furosemide 60 mg PO DAILY glipizide mg PO BID insulin glargine (Lantus Solostar U-100 Insulin) units subcut isosorbide mononitrate ER mg PO levothyroxine mcg PO DAILY miscellaneous medical supply 1 ea miscellaneous .daily use pioglitazone mg PO DAILY rosuvastatin mg PO DAILY Ventolin HFA 90 mcg/actuation (albuterol sulfate) 2 puffs inhalation Q4-6H PRN NS Tobacco use date assessed: 07/29/23 Fall risk assessment: No Falls in past year Last assessed Fall Risk: 12/07/23 Dental Screening Dental Screen Date: 07/29/23 HPI Annual PE HPI Details Pt is here for a PE. Will order labs. Refuses colon screen. Refuses mammo. Pt is a diabetic, sees endo. She also follows up with cardiology and nephrology. Pt c/o difficulty breathing when lying down (orthopnea), with a constant cough. Pt does report having a Hx of asthma and COPD as well. Will order chest XR and CT. Will also refer to pulmonology. She reports that ventolin helps. Will send fluticasone. Will contact pt's culinary arts teacher regarding her recent echo (pericardial effusion). [facility] Medical History Diabetes Lower extremity weakness Surgical History No pertinent past surgical history Social History Housing: House Patient Tobacco Use Status: Former Tobacco user e-Cigarette/Vaping Use: Never Used Second Hand Smoke Exposure: No Current occupational status: retired Cognitive needs: No Hearing needs: No Vision needs: No Questionnaire PHQ-9 Over the last 2 weeks, how often have you been bothered by any of the following problems? 17332 - PHQ-9 Billing: Patient declined-do not bill Source: Developed by Drs. Cornel Riggs, Turner Flores and colleagues, with an educational thom from [employer]. Thrive Questionnaire Date Thrive assessed: 07/29/23 AUDIT C Alcohol Use Questionnaire (AUDIT-C) 1. How often do you have a drink containing alcohol?: Never 3. How often do you have six or more drinks on one occasion?: Never Total Score: 0 Score Reviewed/Action Taken: Yes PRIYA-7 AMB Questionnaire PRIYA-7 Date PRIYA - 7 assessed: 07/29/23 Source: Developed by Drs. Cornel Riggs, Turner Flores and colleagues, with an educational thom from [employer]. PRIYA-7 Assessment Billing PRIYA-7 Assessment Tool: pt declined-do not bill Review of Systems Const Denies chills and Denies fever(s) Eyes Denies blurry vision ENT Denies vertigo, Denies dizziness and Denies sore throat Card Denies chest pain at rest, Denies chest pain with activity, Denies diaphoresis and Reports dyspnea Resp Reports cough, Reports dyspnea and Denies wheezing GI Denies abdominal pain, Denies melena, Denies hematochezia, Denies constipation, Denies diarrhea and Denies loose stools Denies hematuria Musc Denies numbness and Denies tingling Skin/Breast Denies lesions Neuro Denies vertigo, Denies dizziness, Denies numbness and Denies tingling Psych Denies anxiety, Denies depression, Denies homicidal ideation, Denies suicidal ideation and Denies other (substance abuse) Aller/Immun Denies wheezing Physical exam (Primary Care) Vital Signs: Last Vital Signs Pulse 79 12/07/23 12:55 BP 124/74 12/07/23 12:55 Pulse Ox 93 12/07/23 12:55 Oxygen Delivery Method Room Air 12/07/23 12:55 BMI result Body Mass Index 54.0 Tobacco/Smoking Status: Tobacco use Status Tobacco use date assessed 07/29/23 12/07/23 12:57 Patient Tobacco Use Status Former Tobacco user 12/07/23 12:57 e-Cigarette/Vaping Use Never Used 12/07/23 12:57 Thrive Assessment: Date of Thrive Assessment Date Thrive assessed 07/29/23 12/07/23 12:57 Const General: cooperative Nutritional Appearance: obese morbidly obese Orientation/consciousness: patient oriented x3 Limitations: ambulation with walker HENMT Head: Yes normal to inspection, Yes normocephalic and Yes atraumatic Ears: TM's normal bilaterally Eyes General: appearance normal, both eyes and all related structures Alignment and Position: alignment normal and position normal Neck Neck: Yes normal visual inspection, Yes no lymphadenopathy and Yes supple Resp Other: lungs fairly clear/slightly diminished Effort & Inspection: normal respiratory effort Cardio Rate: regular rate Rhythm: regular rhythm Heart sounds: S1 normal heart sound present, S2 normal heart sound present and no murmurs GI Palpation (GI): Soft to palpation and nontender Auscultation: normal bowel sounds Skin Rashes: no rashes Neuro General: patient oriented x3, moves all extremities, no focal motor deficits and deep tendon reflexes 2+ bilaterally Romberg Test: Negative Extrem Other: bilat feet: + sensation with use of monofilament, feet intact Right lower extremity: edema Details: 1+ Left lower extremity: edema Details: 1+ Psych Appearance: grossly normal Mental Status: mental status grossly normal Speech and movement: Normal speech and movement present Affect: normal affect Attitude: cooperative Thought process: Normal thought process present Thought content: Normal thought content present Insight: Good insight present (Psych) Judgement: Good judgement present (Psych) Results AMB Hemoglobin A1c AMB Hemoglobin A1c 7.4 % Last Edit by Brent Moreno CMA on 12/07/23 13:25 Results Reviewed Results Reviewed: Laboratory Last Values Hgb A1c (Clinic) 7.4 % (4.0-6.0) H 12/07/23 13:13 Coding Level of Care Code Est Pt Prev Care >65y(73194) Diagnoses Orthopnea R06.01 Encounter for routine adult physical exam with abnormal findings Z00. Vitamin D deficiency E55.9 Chronic cough R05.3 Shortness of breath R06.02 Assessment & Plan Assessment & Plan (1) Orthopnea: Code(s): R06.01 - Orthopnea Category: Medical Plan: Chest XR ordered, pt sees a culinary arts teacher. Will make sure they are aware of her recent echo, labs ordered (2) Encounter for routine adult physical exam with abnormal findings: Code(s): Z00.01 - Encounter for general adult medical examination with abnormal findings Category: Medical (3) Vitamin D deficiency: Code(s): E55.9 - Vitamin D deficiency, unspecified Category: Medical Plan: ordered (4) Chronic cough: Code(s): R05.3 - Chronic cough Category: Medical Plan: chest XR, fluticasone, pulmonary referral (5) Shortness of breath: Code(s): R06.02 - Shortness of breath Category: Medical Plan The patient agreed to the use of a medical record librarians teacher for this encounter. Scribed for DESI Giang by Perla Rizo medical record librarians teacher, on 12/07/2023 at 13:20 EST. Orders: Orders Complete Blood Count Auto Diff Today Z00.01 - Encounter for general adult medical examination with abnormal findings UA CC w/rflx Micro + Cult Today Z00.01 - Encounter for general adult medical examination with abnormal findings CT chest wo IV con Today R05.3 - Chronic cough AMB Hemoglobin A1c Today Z13.9 - Encounter for screening, unspecified XR chest 2V Today R06.01 - Orthopnea Comprehensive [place]. Panel Fast Today Z00.01 - Encounter for general adult medical examination with abnormal findings TSH reflex Free T4 Today Z00.01 - Encounter for general adult medical examination with abnormal findings Lipid Panel Today Z00.01 - Encounter for general adult medical examination with abnormal findings Vitamin D 25-OH Total Today E55.9 - Vitamin D deficiency, unspecified B Type Natriuretic Peptide Today R06.01 - Orthopnea, R06.02 - Shortness of breath Referrals Pulmonology Referral R05.3 - Chronic cough Medications: New fluticasone propionate 250 mcg/actuation please rinse your mouth out after use. 2 inhalations inhalation BID 60 ea 0RF
== END 2023-12-07 14:51 | disposition home or self-care (01) ==
PROVIDERS: PCP Nurse Practitioner Family; Visit Provider Nurse Practitioner Family
DX: R06.01 Orthopnea (principal); Z00.01 Encounter for general adult medical examination with abnormal findings; E55.9 Vitamin D deficiency, unspecified; R05.3 Chronic cough; R06.02 Shortness of breath; Z13.9 Encounter for screening, unspecified

== ENCOUNTER → 2023-12-07 12:51 | Outpatient (BNVA) | payer OTHER, MEDICAID, SELFPAY | PROVIDERS: PCP Nurse Practitioner Family; Visit Provider Nurse Practitioner Family ==

== ENCOUNTER 2023-12-07 14:01 | Outpatient (REF) | payer OTHER, MEDICAID, SELFPAY ==
--- NOTE | ~2023-12-07 | XR_ITS ---
EXAMINATION: XR CHEST CLINICAL INFORMATION: Orthopnea. COMPARISON: November 04, 2023. TECHNIQUE: PA and lateral views of the chest were obtained. FINDINGS: The cardiac silhouette appears moderately enlarged suggesting cardiomegaly; pericardial effusion cannot be confirmed or excluded. This finding appears unchanged compared with November 04, 2023. Mild atherosclerotic aorta. No acute infiltrate, effusion, or pneumothorax is seen. No change in approximately 1 cm left mid to upper lung field calcified granuloma. Mild degenerative changes of the spine. XR/XR chest 2V IMPRESSION: Findings as above. Electronically signed by: Nikolay Hidalgo MD 12/07/2023 04:45 PM EDT
== END 2023-12-07 14:02 | disposition home or self-care (01) ==
LOC: HO.HMGCX 14:01
PROVIDERS: PCP Nurse Practitioner Family; Visit Provider Nurse Practitioner Family
DX: R06.01 Orthopnea (principal); E11.9 Type 2 diabetes mellitus without complications
CPT/HCPCS: 71046; 83036

== ENCOUNTER 2024-02-10 14:17 | Outpatient (AMB) | payer OTHER, MEDICAID, SELFPAY ==
--- OUTSIDE RECORDS SUMMARY | 2024-02-10 14:20 | XMS_ITS | Continuity of Care Document ---
Author Organization [facility] [address] [place] [address] Phone [phone] Care Team Providers Care Market Master Name Role Phone Gómez Peoples Care Team Information Fisher Purse Seine + [phone] Problems Active Problems Provider Date Type 2 diabetes mellitus Danny Shultz M.D. Onset: 11/27/2021 Chronic kidney disease Danny Shultz M.D. O nset: 11/27/2021 Hypothyroidism Danny Shultz M.D. Onset: 1 Social History Type Date Description Comments Sex Unknown Lives With Spouse Tobacco Use Start: Unknown Never Smoked Cigarettes Smoking Status Reviewed: 06/18/22 Never Smoked Cigaret gavin ETOH Use Never used alcohol Allergies and adverse reactions Active Allergies Criticality Reaction Severity Comments Date Lisinopril Unable to assess criticality 11/27/2021 Medications Active Medications SIG Qnty Indications Order ing Provider Date Gsiflulvl19es Tablets 2 tablets by mouth every day 90tabs Danny Shultz M.D. 02/07/2024 Mounjaro2.5mg/0.5ML Solution Auto-Inject inject 0.5 milliliters weekly 2ml Danny Shultz M.D. 01/26/2024 BD Pen Needle/Maria A 2ND Gen/32G X 4mm32G X 4 mm Misc 1 pen needle to insulin pen once a day DX:E11.8 100units E11.8 Danny Shultz M.D. 10/27/2023 Uaskayjrz46ly Tablets Take 1 Tablet By Mouth Twice Daily 180tabs Danny Shultz M.D. 11/26/2021 Levothyroxine Owrvgg02rve Tablets Take 1 Tablet By Mouth Every Day 90tabs Danny Shultz M.D. 11/26/2021 Accu-Chek Fastclix LancetsMisc use 1 lancet 3 times a day 300units E11Eze8 Danny Shultz M.D. 09/25/2021 Accu-Chek GuideStrips use 3 times a day for 90 days 300units E11Eze8 Danny Shultz M.D. 09/25/2021 Accu-Chek GuideW/Device Kit 1 strip to skin 3-4 times a day as directed 1units [id number] Danny Shultz M.D. 09/25/2021 Accu-Chek Rosaura PlusStrips use 1 strip via meter three times daily 400units [id number] Danny Shultz M.D. 09/25/2021 Onetouch VerioStrips use 1 strip to chec k glucose 3 times daily 400units Danny Shultz M.D. 09/12/2021 Pioglitazone JWM44cg Tablets Take 1 Tablet By Mouth Every Day as Directed 90tabs Danny Shultz M.D. Lantus Gxaxforj694Nbuf/ML Solution Pen-Inject Inject 14 Units Subcutaneously In Am Dx:E11.8 30units [id number] Danny Shultz M.D. Isosorbide Mononitrate ER30mg Tablets ER 24HR Take 1 Tablet By Mouth Daily Unknown Rosuvastatin Muvross15qn Tablets Take 1 Tablet By Mouth Every Day Freddie Quick Carvedilol6.25mg Tablets Take 1 Tablet By Mouth Twice Daily Unknown One Touch Verio50 Test STR (New) 50 Use 1 Strip To Check Glucose Three Times Daily Dx: E11.9 400units Danny Shultz M.D. Ventolin GAE230(90Base) mcg/Act Aerosol Inhale 2 Puffs By Mouth Every 4 To 6 Hours as Needed For Shortness Of Breath Or GloGómez herring Vital Signs Date Vital Result Comment 01/26/2024 11:06am BP Systolic 140 mmHg BP Diastolic 80 mmHg Heart Rate 76 /min Height 63 inches 5'3 Weight 310.00 lb BMI (Body Mass Index) 54.9 kg/m2 Results Test Acquired Date Facility Test Result H/L Range Note Laboratory test finding 02/05/2024 [facility] Hemoglobin A1c 7.8 % High 4.8-5.6 1 Lipid Panel 02/05/2024 [facility] Cholesterol, Total 92 mg/dL Low 100-199 Triglycerides 88 mg/dL 0-149 HDL Cholesterol 42 mg/dL >39 VLDL Cholestero l Slim 18 mg/dL 5-40 LDL Chol Calc (Nih) 32 mg/dL 0-99 LDL Calc Comment: TNP Non-HDL Cholesterol 50 mg/dL 0-129 Laboratory test finding 01/26/2024 Inhouse Glucose Fingerstick 77 Hemoglobin A1c 7.6% Laboratory test finding 10/06/2023 Inhouse Glucose Fingerstick 89 Hemoglobin A1c 7.8% Laboratory test finding 06/23/2023 Inhouse Glucose Fingerstick 72 Hemoglobin A1c 7.6% Laboratory test finding 03/10/2023 Inhouse Glucose Fingerstick 181 Laboratory test finding 03/08/2023 [facility] TSH With Reflex To FT4 3.76 uIU/mL (0.4-4.2) Hemoglobin A1c 7.1 % High (4.0-5.6) 2 Laboratory test finding 09/23/2022 Inhouse Glucose Fingerstick 95 Hemoglobin A1c With Est Glucose 09/16/2022 [facility] Hemoglobin A1c 8.1 % High (4.0-5.6) 3 Estimated [place] ge Glucose 186 mg/dL Laboratory test finding 09/16/2022 [facility] TSH With Reflex To FT4 6.01 uIU/mL High (0.4-4.2) Free T4 1.34 ng/dL (0.70-1.8 0) Laboratory test finding 06/18/2022 Inhouse Glucose Fingerstick 140 Laboratory test finding 06/15/2022 [facility] Hemoglobin A1c 7.6 % High (4.0-5.6) 4 TSH 3.34 uIU/mL (0.4-4.2) Laboratory test finding 03/25/2022 [facility] TSH With Reflex To FT4 <pending> Laboratory test finding 03/25/2022 Inhouse Glucose Fingerstick 122 Laboratory test finding 03/19/2022 [facility] Hemoglobin A1c 8.0 % High (4.0-5.6) 5 TSH 12.90 uIU/mL High (0.4-4.2) Laboratory test finding 11/27/2021 Inhouse Glucose Fingerstick 126 Laboratory test finding 11/19/2021 [facility] TSH 3.83 uIU/mL (0.4-4.2) Hemoglobin A1c 7.7 % High (4.0-5.6) 6 1 Prediabetes: 5.7 - 6 .4 Diabetes: >6.4 Glycemic control for adults with diabetes: <7.0 2 MONITORING: In known diabetic patients, hemoglobin A1c targets should be discussed with health care provider. DIAGNOSTIC USE: The [place] Diabetes Association (ADA) and the World Health Organization (WHO) recommend the use of HbA1c to diagnose diabetes using a threshold of 6.5%. Patients who have an HbA1c between 5.7% and 6.4% are considered at increased risk for developing diabetes in the future. CAUTION: Falsely low HbA1c results may be observed in patients with hemolytic anemia, homozygous forms of abnormal hemoglobin (e.g. SS, CC, SC), , recent blood loss or hemoglobin F greater than 7%. Fructosamine may be used as an alternate test in these cases. REFERENCE: ADA: Standards of Medical Care in Diabetes 2020, The Journal of Clinical and Applied Research and Education Volume 43, Supplement 1 3 MONITORING: In known diabetic patients, hemoglobin A1c targets should be discussed with health care provider. DIAGNOSTIC USE: The [place] Diabetes Association (ADA) and the World Health Organization (WHO) recommend the use of HbA1c to diagnose diabetes using a threshold of 6.5%. Patients who have an HbA1c between 5.7% and 6.4% are considered at increased risk for developing diabetes in the future. CAUTION: Falsely low HbA1c results may be observed in patients with hemolytic anemia, homozygous forms of abnormal hemoglobin (e.g. SS, CC, SC), , recent blood loss or hemoglobin F greater than 7%. Fructosamine may be used as an alternate test in these cases. REFERENCE: ADA: Standards of Medical Care in Diabetes 2020, The Journal of Clinical and Applied Research and Education Volume 43, Supplement 1 4 MONITORING: In known diabetic patients, hemoglobin A1c targets should be discussed with health care provider. DIAGNOSTIC USE: The [place] Diabetes Association (ADA) and the World Health Organization (WHO) recommend the use of HbA1c to diagnose diabetes using a threshold of 6.5%. Patients who have an HbA1c between 5.7% and 6.4% are considered at increased risk for developing diabetes in the future. CAUTION: Falsely low HbA1c results may be observed in patients with hemolytic anemia, homozygous forms of abnormal hemoglobin (e.g. SS, CC, SC), , recent blood loss or hemoglobin F greater than 7%. Fructosamine may be used as an alternate test in these cases. REFERENCE: ADA: Standards of Medical Care in Diabetes 2020, The Journal of Clinical and Applied Research and Education Volume 43, Supplement 1 5 MONITORING: In known diabetic patients, hemoglobin A1c targets should be discussed with health care provider. DIAGNOSTIC USE: The [place] Diabetes Association (ADA) and the World Health Organization (WHO) recommend the use of HbA1c to diagnose diabetes using a threshold of 6.5%. Patients who have an HbA1c between 5.7% and 6.4% are considered at increased risk for developing diabetes in the future. CAUTION: Falsely low HbA1c results may be observed in patients with hemolytic anemia, homozygous forms of abnormal hemoglobin (e.g. SS, CC, SC), , recent blood loss or hemoglobin F greater than 7%. Fructosamine may be used as an alternate test in these cases. REFERENCE: ADA: Standards of Medical Care in Diabetes 2020, The Journal of Clinical and Applied Research and Education Volume 43, Supplement 1 6 MONITORING: In known diabetic patients, hemoglobin A1c targets should be discussed with health care provider. DIAGNOSTIC USE: The [place] Diabetes Association (ADA) and the World Health Organization (WHO) recommend the use of HbA1c to diagnose diabetes using a threshold of 6.5%. Patients who have an HbA1c between 5.7% and 6.4% are considered at increased risk for developing diabetes in the future. CAUTION: Falsely low HbA1c results may be observed in patients with hemolytic anemia, homozygous forms of abnormal hemoglobin (e.g. SS, CC, SC), , recent blood loss or hemoglobin F greater than 7%. Fructosamine may be used as an alternate test in these cases. REFERENCE: ADA: Standards of Medical Care in Diabetes 2020, The Journal of Clinical and Applied Research and Education Volume 43, Supplement 1 Medical Devices Description No Information Available Encounters Type Date Location Provider Dx Diagnosis Office Visit 01/26/2024 10:45a Main Office Danny Shultz M.D. E11.8 Type 2 diabetes mellitus with unspecified complications N18.4 Chronic kidney disea se, stage 4 (severe) Assessments Date Code Description Provider 01/26/2024 E11.8 Type 2 diabetes mellitus with unspecified complications Danny Shultz M.D. 01/26/2024 N18.4 Chronic kidney disease stage 4 Danny Shultz M.D. Plan of Treatment Future Appointment(s):* 05/17/2024 10:45 am - Danny Shultz M.D. at Main Office 01/26/2024 - Danny Shultz M.D.* E11.8 Type 2 diabetes mellitus with unspecified complications * N18.4 Chronic kidney disease stage 4 * Functional Status Description No Information Available Mental Status Description No Information Available Referrals Description No Information Available
--- OUTSIDE RECORDS SUMMARY | 2024-02-10 14:20 | XMS_ITS | Continuity of Care Document ---
Author Organization [facility] ter Address [address] [place] [id number]- Care Team Providers Care Denture Packer Name Role Phone Shelton BENEFITS ANALYST, Gómez [place] Primary Care Physician Encounter [facility] [place] Date(s): 10/07/23 - 01/28/[address] [address]- Attending Physician: Raymond Chan MD Admitting Physician: Raymond Chan MD Encounter Type: Preadmit Daystay Allergies, Adverse Reactions, Alerts Substance Criticality Severity Reaction Reaction Severity Status lisinopril Active atorvastatin Not available Act chrystal Immunizations Given and Recorded Vaccine Date Status Refusal Reason influenza virus vaccine, inactivated 02/08/18 Give n Medications aspirin 81 mg oral tablet, chewable 81 mg, By Mouth, Daily, # 30 tablet, Refills 2, Tot. Refills 2, Maintenance, 02/11/18 12:37:53 PM EST, Route to Pharmacy Electronically, [facility] - [address] [place] [address] Start Date: 02/11/18 Status: Ordered Quantity: 30.0 Unit: tablet Repeat number: 3 B Complex 100 0 Refills, Maintenance, 12/24/16 11:13:57 AM EDT Start Date: 12/24/16 Status: Ordered Repeat number: 1 BD Ultra Fine Maria A Pen needles 4mm x 32G BD Ultra Fine Maria A Pen needles 4mm x 32G, See Instructions, # 100 each, Refills 6, Tot. Refills 6, Maintenance, use once a day with Lantus pen. Dx 11.9, 01/18/17 10:48:11 AM EST, Compound Start Date: 01/18/17 Status: Ordered Quantity: 100.0 Unit: each Repeat number: 7 Biotin = 2.5 mg, By Mouth, Daily, 0 Refills, Maintenance, 04/04/20 12:45:00 PM EST, Partial fill upon patient request if the prescription is for a schedule II opioid drug. Start Date: 04/04/20 Status: Ordered Repeat number: 1 carvedilol 6.25 mg oral tablet 1, tablet, By Mouth, 2 times a day, # 360 tablet, Refills 3, Tot. Refills 3, Maintenance, 09/24/23 12:17:00 PM EDT, Route to Pharmacy Electronically, [facility] #[id number], 162, cm, 08/09/23 10:55:00 EDT, Height Start Date: 09/24/23 Status: Ordered Quantity: 360.0 Unit: tablet Repeat number: 4 carvedilol 6.25 mg oral tablet 1, tablet, By Mouth, 2 times a day, # 360 tablet, Refills 3, Maintenance, 09/24/23 12:23:00 PM EDT, Route to Pharmacy Electronically, [facility] #[id number], 162, cm, 08/09/23 10:55:00 EDT, Height Start Date: 09/24/23 Status: Ordered Quantity: 360.0 Unit: tablet Repeat number: 1 furosemide 40 mg oral tablet 40 mg, 1, tablet, By Mouth, Daily, 60mg Am, # 30 tablet, Refills 0, Maintenance, 03/01/19 9:33:00 AM EST Start Date: 03/01/19 Status: Ordered Quantity: 30.0 Unit: tablet Repeat number: 1 glipizide 10 mg oral tablet 1 tablet = 10 mg, By Mouth, 2 times a day, 0 Refills, Maintenance, 07/25/14 10:08:19 AM EDT Start Date: 07/25/14 Status: Ordered Repeat number: 1 isosorbide mononitrate 30 mg oral tablet, extended release 1 tablet, By Mouth, Daily, # 90 tablet, 0 Refills, Maintenance, 09/24/23 12:24:00 PM EDT, [facility] #[id number], 162, cm, 08/09/23 10:55:00 EDT, Height Start Date: 09/24/23 Status: Ordered Quantity: 90.0 Unit: tablet Repeat number: 1 Lantus Inj = 15 units, Subcutaneous Infusion, Daily at bedtime, 0 Refills, Maintenance, 08/29/15 2:12:03 PM EDT Start Date: 08/29/15 Status: Ordered Repeat number: 1 Lantus Solostar Pen 100 units/mL subcutaneous solution 21 mL, 0 Refill(s), INJECT 22 UNITS UNDER THE SKIN ONCE DAILY, 0 Refills, 08/09/23 10:57:00 AM EDT, Partial fill upon patient request if the prescription is for a schedule II opioid drug. Start Date: 08/09/23 Status: Ordered Repeat number: 1 levoFLOXacin 250 mg oral tablet 3 each, 0 Refill(s), TAKE 1 TABLET BY MOUTH DAILY FOR 3 DAYS, 0 Refills, 12/29/23 11:04:00 AM EST, Partial fill upon patient request if the prescription is for a schedule II opioid drug. Start Date: 12/29/23 Status: Ordered Repeat number: 1 levothyroxine 0.075 mg oral tablet 1, By Mouth, Daily, 0 Refills, Maintenance, 02/07/18 9:18:01 PM EST, takes at 11pm Start Date: 02/07/18 Status: Ordered Repeat number: 1 OneTouch Verio Test Strips See Instructions, # 100 each, Refills 6, Tot. Refills 6, Maintenance, check BG 3 times a day. Dx 11.9, 01/18/17 10:46:26 AM EST, Compound Start Date: 01/18/17 Status: Ordered Quantity: 100.0 Unit: each Repeat number: 7 Pioglitazone = 15 mg, By Mouth, Daily, 0 Refills, Maintenance, 08/26/18 12:42:42 PM EDT Start Date: 08/26/18 Status: Ordered Repeat number: 1 pioglitazone 15 mg oral tablet 90 each, 0 Refill(s), TAKE 1 TABLET BY MOUTH EVERY DAY DIRECTED, 0 Refills, 08/09/23 10:57:00 AM EDT, Partial fill upon patient request if the prescription is for a schedule II opioid drug. Start Date: 08/09/23 Status: Ordered Repeat number: 1 rosuvastatin 40 mg oral capsule 1 capsule = 40 mg, By Mouth, Daily, 0 Refills, Maintenance, 04/04/20 12:47:00 PM EST, Partial fill upon patient request if the prescription is for a schedule II opioid drug. Start Date: 04/04/20 Status: Ordered Repeat number: 1 rosuvastatin 40 mg oral tablet 90 each, 0 Refill(s), TAKE 1 TABLET BY MOUTH EVERY DAY, 0 Refills, 08/09/23 10:57:00 AM EDT, Partialfill upon patient request if the prescription is for a schedule II opioid drug. Start Date: 08/09/23 Status: Ordered Repeat number: 1 senna 17 mg oral tablet 1 tablet = 17 mg, By Mouth, Daily, # 30 tablet, 0 Refills, Maintenance, 12/03/18 6:32:00 PM EDT Start Date: 12/03/18 Status: Ordered Quantity: 30.0 Unit: tablet Repeat number: 1 Ventolin HFA 108 mcg/inh inhalation aerosol with adapter 2 puffs, Inhalation, Daily, 0 Refills, Maintenance, 06/26/22 4:17:00 PM EDT, Partial fill upon patient request if the prescription is for a schedule II opioid drug. Start Date: 06/26/22 Status: Ordered Repeat number: 1 Vitamin D3 By Mouth, Daily, 0 Refills, Maintenance, 07/25/14 10:09:14 AM EDT Start Date: 07/25/14 Status: Ordered Repeat number: 1 Problem List Condition Confirmation Course Effective Dates Status H ealth Status Informant Bursitis Confirmed Active Chest pain Confirmed Active Diabetes Confirmed Active Hyperlipidemia Confirmed Active Hypertension Confirmed Active Hypothyroidism Confirmed Active Abnormal liver enzymes Confirmed Active Renal insufficiency Confirmed Active Sciatica Confirmed Active Severe obesity Confirmed Active Type 2 diabetes mellitus Confirmed Active Social History Social History Type Response Smoking Status Former smoker; Other : 1/2-1ppd x 40y, quit 2012; entered on: 08/29/15 Sex Sex Representation Female (finding) Patient Care team information Care Team Personnel Name: Fredis Kunz MD Position: [facility] Renal Member Role: Lifetime Consulting Physician Address: [address] [place] [address] [address] [facility] [place] [address]- Telecom: Name: Nithin Negrete MD Position: [facility] Renal Member Role: Lifetime Consulting Physician Address: [address] [place] [address] [address] [facility] [place] [address]- Telecom: Name: Shelton TERRAZAS , Gómez [place] Position: Reference Physician Member Role: PCP Address: [address] [place] [address]- Telecom: Name: Deedee Mosquera RN Position: S RN Member Role: Primary Care Nurse Care Team Related Persons Name: ARRON CM Name: OCHOA CM Name: NAVIN CM Insurance Providers Guarantor name: DESTINY CM Health Plan Information #: 1 Payer: [employer] PPO Member Number: [id number] Policy Number: NA Group Number: [id number] Health Plan Information #: 2 Payer: [employer] PPO Member Number: [id number] Policy Number: NA Group Number: NA Health Plan Information #: 3 Payer: [place] Member Number: NA Policy Number: NA Group Number: NA
[2024-02-10 14:49] VITALS: BP 122/74; PULSE 76; O2SAT 93; BMI 56.1
--- NOTE | 2024-02-10 14:49 | A.OFFPC_ITS ---
Vital Signs 02/10/24 14:49 Height 5 ft 3 in Weight 317 lb BMI 56.1 BP 122/74 Blood Pressure Location Lt brachial Position Sitting Pulse 76 Pulse Source Pulse Oximeter Pulse Oximetry (%) 93 Oxygen Delivery Method Room Air Intake Visit Reasons: 2m follow up per Gómez. Intake Note: pt is here for 2 mon f/up Allergies lisinopril [LISINOPRIL] Allergy (Unknown, Verified 02/10/24 14:55) KIDNEY FAILURE cephalexin Adverse Reaction (Mild, Verified 02/10/24 14:55) hives sulfamethoxazole [From Sulfamethoxazole-Trimethoprim] Adverse Reaction (Mild, Verified 02/10/24 14:55) Hives trimethoprim [From Sulfamethoxazole-Trimethoprim] Adverse Reaction (Mild, Verified 02/10/24 14:55) Hives Medication List - Last Reconciled 02/10/24 by WING Mendieta-NAINA acetaminophen 500 mg PO Q6H PRN aspirin (Adult Low Dose Aspirin) 81 mg orally 3x week; B-complex with vitamin C 1 tab PO DAILY carvedilol mg PO BID cholecalciferol (vitamin D3) 50 mcg orally 1 daily, wednesday 2tabs; fluticasone propionate 250 mcg/actuation 2 inhalations inhalation BID furosemide 80 mg PO DAILY glipizide mg PO BID insulin glargine (Lantus Solostar U-100 Insulin) units subcut isosorbide mononitrate ER mg PO levothyroxine mcg PO DAILY miscellaneous medical supply 1 ea miscellaneous .daily use pioglitazone mg PO DAILY rosuvastatin mg PO DAILY Ventolin HFA 90 mcg/actuation (albuterol sulfate) 2 puffs inhalation Q4-6H PRN NS Tobacco use date assessed: 07/29/23 Fall risk assessment: No Falls in past year Last assessed Fall Risk: 02/10/24 Dental Screening Dental Screen Date: 07/29/23 HPI 2m follow up per Gómez. HPI Details Chief Complaint The patient presents with frustration due to worsening kidney function and a chronic cough with white mucus. History of Present Illness The patient is a 68-year-old female presenting with concerns about chronic kidney disease and a chronic cough. The patient has chronic kidney disease, and recent evaluation indicates that her kidney function is declining toward the need for dialysis. She is actively following up with her plant breeder scientist regarding this condition. The patient also has a chronic cough that started approximately one year ago around [place]. Pt did smoke, quit 2012. The cough is persistent, producing a significant amount of white mucus, and exacerbates when lying down. There have been no episodes of fever or chills. The patient has been awaiting further evaluation by pulmonary medicine, a CT scan was ordered in November, and a sputum culture order has been placed during today's visit. Her comorbidities include diabetes mellitus, for which she follows up with an siebel developer, and morbid obesity. The patient is under the care of a plant quality manager and experiences weakness in the lower extremities, requiring a walker for ambulation. Social History - Utilizes a walker for mobility due to lower extremity weakness. - No additional details pertinent to soc ial determinants of health were discussed. Health Maintenance Review of Systems - Respiratory: Reports chronic cough wit h white mucus and wheezing. Denies fever or chills. Physical Exam General: Cooperative, healthy appearing, comfortable, no acute distress and well developed, morbidly obese Orientation: Patient oriented x3 Limitations: Uses a sitting walker for weakness of lower extremities Head: Normal to inspection Ears: Hearing grossly normal bilaterally Nose: Normal external nose present Face and sinus: Normal facial exam Eyes: Appearance normal, both eyes and all related structures Neck: Normal visual inspection and Yes full ROM Respiratory: Lungs are clear but tight upon coughing, sounds wheezy Cardiovascular: Regular rate and rhythm. Normal S1 and S2 GI: Normal to inspection. Soft to palpation and nontender Skin: No rashes or lesions noted Neuro: Patient oriented x3 Extremities: Normal to inspection, uses a walker for weakness of lower extremities Results - Labs: Sputum culture ordered today. - Imaging: CT scan of the thorax was ord ered in November. Plan - Continues follow-up with plant breeder scientist for chronic kidney disease management. - Encouraged obtaining lab work to asses s current health status. - Follow-up with pulmonology is recommen ded for further evaluation of chronic cough. - Sputum culture sent for analysis to in vestigate cause of chronic cough. - Await results of CT scan to assess any pulmonary pathologies. Patient was informed and verbally consented to the use of an ambient scribe for clinic note documentation during this visit. Discussion Notes I discussed with the patient the current status of her chronic kidney disease and emphasized the importance of continuous monitoring and communication with her plant breeder scientist. We also addressed her concerns about the chronic cough, and I explained that a sputum culture was collected today to further assess the etiology of her symptoms. We considered the follow-up with pulmonology essential to manage her respiratory complaints effectively. I did not find any immediate indication for antibiotic therapy based on her current presentation. We discussed the importance of completing her scheduled lab work and the necessity of close follow-up with her specialists to ensure comprehensive care. Patient Instructions - Continue follow-up with your nephrolog ist for kidney disease management. - Obtain lab tests as discussed to asses s your current health status. - Maintain scheduled appointments with y our parking station attendant. - Monitor and report any new symptoms or significant changes in your chronic cough. - Use your walker for mobility as needed . PFSH Medical History Diabetes Lower extremity weakness Surgical History No pertinent past surgical history Social History Housing: House Patient Tobacco Use Status: Former Tobacco user e-Cigarette/Vaping Use: Never Used Second Hand Smoke Exposure: No Current occupational status: retired Cognitive needs: No Hearing needs: No Vision needs: No Questionnaire Thrive Questionnaire Date Thrive assessed: 07/29/23 PRIYA-7 AMB Questionnaire PRIYA-7 Date PRIYA - 7 assessed: 07/29/23 Source: Developed by Drs. Cornel Riggs, Carol Sullivan, Turner Sinha and colleagues, with an educational thom from [employer]. Physical exam (Primary Care) Vital Signs: Last Vital Signs Pulse 76 02/10/24 14:49 BP 122/74 02/10/24 14:49 Pulse Ox 93 02/10/24 14:49 Oxygen Delivery Method Room Air 02/10/24 14:49 BMI result Body Mass Index 56.1 Tobacco/Smoking Status: Tobacco use Status Tobacco use date assessed 07/29/23 02/10/24 14:51 Patient Tobacco Use Status Former Tobacco user 02/10/24 14:51 e-Cigarette/Vaping Use Never Used 02/10/24 14:51 Thrive Assessment: Date of Thrive Assessment Date Thrive assessed 07/29/23 02/10/24 14:51 Immunizations pneumoc 20-jaci conj-dip cr(PF) 0.5 mL IM syringe Performing Provider: DESI Mendieta Performing Location: [facility] [facility] Administered by: Brent Moreno CMA on 02/10/24 15:59 Dose Route Admin Location Dispensed Lot Number Expiration Date NDC Sergeant Missile Crewman 0.5 mL IM Right Deltoid 0.5 mL [id number] 06/11/25 8612-8106-84 [employer]al[employer] VIS Given Date VIS Provided VIS Publication Date 02/10/24 Single Vaccine 21 Eligibility Eligibility Date Funding Source Not [facility] Eligible 02/10/24 Private Coding Level of Care Code Est Pt Level 3 (02611) Diagnoses Chronic cough R05.3 CKD (chronic kidney disease) stage 5, GFR less than 15 ml/min N18.5 Assessment & Plan Assessment & Plan (1) Chronic cough: Code(s): R05.3 - Chronic cough Category: Medical (2) CKD (chronic kidney disease) stage 5, GFR less than 15 ml/min: Code(s): N18.5 - Chronic kidney disease, stage 5 Category: Medical Plan . Orders: Orders Pneumococcal 20 Immunization Today Z23 - Encounter for immunization Sputum Cult + Gram stain Today R05.3 - Chronic cough
== END 2024-02-10 16:18 | disposition home or self-care (01) ==
PROVIDERS: PCP Nurse Practitioner Family; Visit Provider Nurse Practitioner Family
DX: R05.3 Chronic cough (principal); N18.5 Chronic kidney disease, stage 5; Z23 Encounter for immunization

== ENCOUNTER → 2024-02-10 14:17 | Outpatient (BNVA) | payer OTHER, MEDICAID, SELFPAY | PROVIDERS: PCP Nurse Practitioner Family; Visit Provider Nurse Practitioner Family | DX: R05.3 Chronic cough (principal); N18.5 Chronic kidney disease, stage 5; Z23 Encounter for immunization | CPT/HCPCS: 90471; 90677 ==

== ENCOUNTER 2024-02-14 14:23 | Outpatient (AMB) | payer OTHER, MEDICAID, SELFPAY ==
--- OUTSIDE RECORDS SUMMARY | 2024-02-14 14:25 | XMS_ITS | Data Portability ---
Author Organization [facility], [facility] Address [address] [place] [address] Care Team Providers Care Security Team Lead Name Role Phone DANYA ALLEN Sulky Driver TANVIR RUST Vascular Surgeon GIANNI DAVILA Vascular Surgeon AMERICO CIFUENTES Psychologist MANUELITO PARISI Private Branch Exchange Service Advisor GIANNI UNDERWOOD Risk Advisor Assessment Encounter Date Assessment Date Assessment LastModified by Organization Details LastModified Time 12/08/2019 12/08/2019 In-person visit. Influenza vaccine administered today fkim Not available 12/08/2019 13:21:18 06/21/2020 06/21/2020 Patient agreed t o this visit via phone due to the COVID -19 pandemic. Patient understands this is a scheduled visit and the usual procedures with regard to billing and confidentiality apply. Patient was notified that the provider location is [facility]. Patient location: home During the visit the patient? s medical history and medical record were reviewed. The patient was notified to call our office for worsening or urgent symptoms. fkim Not available 06/21/2020 20:35:27 07/03/2020 07/03/2020 In-person fkim Not available 06/22 13:25:54 07/24/2020 07/24/2020 In-person fkim Not available 03/2020 11:20:08 Plan of Treatment Reminders Order Date Submit Date Provider Last Modified By Organization Details Last Modified Time Details Appointments None recorded. Lab iron + total iron-leonie ng capacity (TIBC), serum 2019 021 [facility], [address] [place], [address], 13:16:26 ferritin, serum or plasma 2019 021 [facility], [address] [place], [address], 13:35:30 vitamin B12, serum 2019 021 [facility], [address] [place], [address], 13:35:29 lipid panel, serum 2019 021 [facility], [address] [place], [address], 13:16:28 Referral None recorded. Procedures None recorded. Surgeries None recorded. Imaging None recorded. Medication Orders rosuvastat in 40 mg tablet [facility]20 [id number], [address], [place], [id number], 0 13:08:48 Colace 100 mg capsule 2020 [id number], [address], [place], [id number], 12:42:16 aspirin 81 mg chewable tablet 2020 ALAMEDA [facility] #[id number], [address] [place] [address], [id number], 12:42:17 Patient TargetsNo targets recorded. Patient Instructions Encounter Date Encounter Id Patient Instructions Last Modified By Organization Details Last Modified Time 12/08/2019 [id number] After a discussi on of treatment options, which included consideration of best practices and patient preferences, the above treatment plan and objectives were adopted. fkim Not available 12/08/2019 13:26:39 06/21/2020 [id number] After a discussi on of treatment options, which included consideration of best practices and patient preferences, the above treatment plan and objectives were adopted. fkim Not available 06/21/2020 20:43:28 07/03/2020 [id number] After a discussi on of treatment options, which included consideration of best practices and patient preferences, the above treatment plan and objectives were adopted. fkim Not available 07/03/2020 13:27:01 Reason for Referral None Reported. Results Created Date Observation Date Name Description Value Unit Range Abnormal Flag Note LastModifiedBy Organization Detail LastModifiedTime 04/25/1904/24/2020 BMP, serum or plasm a glucose 84 mg/dL (70-99 ) Not Available [facility] [address] [place], [address], 04/24/2020 13:16:25 04/25/1904/24/2020 BMP, serum or plasm a BUN 47 mg/dL (8-23) high Not Available [facility] [address] [place], [address], 04/24/2020 13:16:25 04/25/19 21 04/24/2020 BMP, serum or plasm a creatinine 2.1 mg/dL (0.5-1 .0) high Not Available [facility] [address] [place], [address], 04/24/2020 13:16:25 04/25/19 21 04/24/2020 BMP, serum or plasm a sodium 144 mmol/ L (133-1 45) Not Available [facility] [address] [place], [address], 04/24/2020 13:16:25 04/25/1904/24/2020 BMP, serum or plasm a potassium 5.1 mmol/ L (3.6-5 .2) Not Available [facility] [address] [place], [address], 04/24/2020 13:16:25 04/25/1904/24/2020 BMP, serum or plasm a chloride 106 mmol/ L (98-10 7) Not Available [facility] [address] [place], [address], 04/24/2020 13:16:25 04/25/19 21 04/24/2020 BMP, serum or plasm a bicarbonate 29 mmol/ L (22-29 ) Not Available [facility] [address] [place], [address], 04/24/2020 13:16:25 04/25/19 21 04/24/2020 BMP, serum or plasm a anion gap 9 (4-17) Not Available [facility] [address] [place], [address], 04/24/2020 13:16:25 04/25/19 21 04/24/2020 BMP, serum or plasm a calcium 9.5 mg/dL (8.6-1 0.5) Not Available [facility] [address] [place], [address], 04/24/2020 13:16:25 04/25/19 21 04/24/2020 BMP, serum or plasm a est GFR non 24 mL/mi n/1.7 3_M2 Creat inine based estim ated glome rular filtr ation rate (eGFR ) is calcu lated using the Chron ic Kidne y Disea se Epide miolo gy Colla borat ion (CKD- EPI). The CKD-E PI creat inine equat ion has not been valid ated in child linda (<18 years ), pregn ant women or in some racia l or ethni c subgr oups other than Cauca sians and Afric an Ameri cans. Not Available [facility] [address] [place], [address], 04/24/2020 13:16:25 04/25/19 21 04/24/2020 BMP, serum or plasm a est GFR 28 mL/mi n/1.7 3_M2 Creat inine based estim ated glome rular filtr ation rate (eGFR ) is calcu lated using the Chron ic Kidne y Disea se Epide miolo gy Colla borat ion (CKD- EPI). The CKD-E PI crispin perez equat ion has not been valid ated in child linda (<18 years ), pregn ant women or in some racia l or ethni c subgr oups other than Cauca sians and Afric an Ameri cans. Not Available [facility] [address] [place], [address], 04/24/2020 13:16:25 04/25/19 21 04/24/2020 iron + total iron- leonie ng capac ity (TIBC ), serum iron 75 mcg/d L (30-16 0) Not Available [facility] [address] [place], [address], 04/24/2020 13:16:26 04/25/19 21 04/24/2020 iron + total iron- leonie ng capac ity (TIBC ), serum unsaturated iron binding capac 311 mcg/d L (110-3 70) Not Available [facility] [address] [place], [address], 04/24/2020 13:16:26 04/25/19 21 04/24/2020 iron + total iron- leonie ng capac ity (TIBC ), serum est T. iron bind capacity 386 mcg/d L (140-5 30) Not Available [facility] [address] [place], [address], 04/24/2020 13:16:26 04/25/19 21 04/24/2020 iron + total iron- leonie ng capac ity (TIBC ), serum % iron saturation 19 % (20-55 ) low Not Available [facility] [address] [place], [address], 04/24/2020 13:16:26 04/25/19 21 04/24/2020 lipid panel , serum cholesterol, total 126 mg/dL (<200) Not Available [facility] [address] [place], [address], 04/24/2020 13:16:27 04/25/19 21 04/24/2020 lipid panel , serum triglyceride 106 mg/dL (<150) Not Available [facility] [address] [place], [address], 04/24/2020 13:16:27 04/25/19 21 04/24/2020 lipid panel , serum HDL chol 47 mg/dL (>39) Not Available [facility] [address] [place], [address], 04/24/2020 13:16:27 04/25/19 21 04/24/2020 lipid panel , serum LDL cholesterol, calculated 58 mg/dL (0-130 ) Not Available [facility] [address] [place], [address], 04/24/2020 13:16:27 04/25/19 21 04/24/2020 lipid panel , serum non HDL cholesterol (calc) 79 mg/dL (<160) Not Available [facility] [address] [place], [address], 04/24/2020 13:16:27 04/25/19 21 04/24/2020 vitam in B12, serum vitamin B12 1781 pg/mL (232-1 245) high Not Available [facility] [address] [place], [address], 04/24/2020 13:35:29 04/25/19 21 04/24/2020 terrell tin, serum or plasm a ferritin 51 NG/mL (14-28 3) Not Available [facility] [address] [place], [address], 04/24/2020 13:35:30 07/01/19 21 07/04/2020 fecal occul t blood , immun oassa y, stool ifobt NEGATI VE negati ve Not Available [address], [place], [address], 07/04/2020 12:09:02 07/04/19 21 07/03/2020 XR, hip, unila teral OBSERV ATION: CLINIC AL HISTOR Y: Bilate ral hip pain. TECHNI QUE: Two views of each hip are obtain ed. COMPAR ADAIR: None. FINDIN GS: No fractu re of the bony pelvis is seen. The sacroi liac joints are unrema rkable . RIGHT HIP: There is no fractu re, sublux ation, or disloc ation. There is preser vation of the hip joint space. LEFT HIP: There is no fractu re, sublux ation, or disloc ation. There is preser vation of the hip joint space. IMPRES MAURO: No acute bone abnorm ality. No signif icant degene rative diseas e. Electr onical ly signed Readcharanjit nayak Physic bettye: [place] Peralta ms [facility] (Imaging) [address], [place], [address], 07/06/2020 15:25:33 Result Notes None recorded. 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 477937384 Abdulaziz Reyes NP [address] [place], [place] [address] [place], [address], [facility] 6 11:03:24 Type 2 diabetes mellitus 34933990 Completed 10/07/2016 age 46, 2003 Freddie Quick MD [address] [place] [address] [place], [address], [facility] 7 11:48:10 Hypothyr oidism 19173810 Active Mariann Reyes NP [address] [place], [place], [address], [facility] 6 11:03:24 Carotid artery stenosis 57838852 Active Mariann Reyes NP [address] [place], [place] [address], [place], [address], [facility] 5 20:34:02 Vitamin D deficien cy 68480176 Active Mariann Reyes NP [address] [place], [place] [address], [place], [address], [facility] 6 11:03:24 Adhesive capsulit is of shoulder 753453971 Completed 09/05/2015 Removal Reason: resolved Mariann Reyes NP [address] [place], [place] [address], [place], [address], [facility] 6 10:51:17 Benign essentia l hyperten mauro 5677523 Active Mraiann Reyes NP [address] [place], [place] [address], [place], [address], [facility] 6 11:03:24 Angina pectoris 527573948 Active Mariann Reyes NP [address] [place], [place] [address], [place], [address], [facility] 6 11:03:24 Kidney disease 75308482 Active Lxu Reyes NP [address] [place], [place] [address], [place], [address], [facility] 5 20:50:23 Lumbar radiculo ector 349740902 Active Mariann Reyes NP [address] [place], [place] [address], [place], [address], [facility] 6 11:03:24 Psoriasi s 4084593 Active Mariann Reyes NP [address] [place], [place] [address], [place], [address], [facility] 6 18:27:10 Morbid obesity 195699784 Active Mariann Reyes NP [address] [place], [place] [address], [place], [address], [facility] 6 11:03:24 Multiple complica tions due to type 2 diabetes mellitus Active 2015 Mariann Reyes NP [address] [place] [address] [place], [address], [facility] 6 21:00:03 Mixed hyperlip idemia 712272873 Active 2015 Mariann Reyes NP [address] [place] [address] [place], [address], [facility] 6 21:01:57 Medicati on monitori ng Completed 201610/07/2016 Freddie Quick MD [address] [place] [address], [address], [facility] 7 11:48:19 Problem Notes None recorded. Procedures Surgical History Date Name Laterality Status Provider Name and Address Organization Details Recorded Time 07/25/19 21 Trochanteric Bursa Injection completed Freddie Quick MD [address] [place] [address], [address], [facility] 07/24/2020 11:42:07 07/04/19 21 Trochanteric Bursa Injection completed Freddie Quick MD [address] [place] [address], [address], [facility] 07/03/2020 13:25:42 11/19/19 19 Advanced Care Planning completed Freddie Quick MD [address] [place] [address], [address], [facility] 11/19/2018 17:54:41 02/08/20 18 Nebulizer Tx completed Ira Lee [facility] 02/07/2018 11:47:12 Imaging Results Imaging Date Name Status LastModified by Organiz ation Details LastModified Time 07/03/2020 XR, hip, unilateral completed [facility] ([facility]) [address], [place], [address], 07/06/2020 15:25:33 Procedure Notes None recorded. Medical Equipment None Reported. Allergies Allergen ID Allergen Name Allergen Category Reaction Reaction Severity Criticality Documentation Date Start Date Code Code System Note Provider Name and Address Organization Details Recorded Time 564063 lisinopri l medicatio n Not available Not available Not available 01/27/2015 69349 RxNorm Worse kenn kidne y funct ion Mariann Reyes, CLINICAL PROJECT LEADER [address] [facility] [address], [place], [address] , [facility] 5 20:42:47 Medications Name Sig Start Date Stop Date Status Note LastModified by Organization Details LastModified Time outcomes cmr $50 OUTCOMES CASE 10/27 completed Not Available Not Available Not Available Prescript ion - Prior Authoriza tion Request 06/04 completed Not Available Not Available Not Available amoxicill in 500 mg capsule TAKE 1 CAPSULE BY MOUTH THREE TIMES DAILY FOR 10 DAYS 06/21 completed Not Available Not Available Not Available furosemid e 40 mg tablet TAKE 1 TABLET BY MOUTH EVERY DAY active Not Available Not Available No t Available pioglitaz one 15 mg tablet TAKE 1 TABLET BY MOUTH EVERY DAY DIRECTED active Not Available Not Available No t Available atorvasta tin 40 mg tablet active Not Available Not Available Not Available methocarb ian 500 mg tablet 06/04 completed Not Available Not Available Not Available Colace 100 mg capsule Take 1 capsule every day by oral route as needed. 2020 active PRN Not Available Not Available Not Avai lable carvedilo l 6.25 mg tablet TAKE 1 TABLET BY MOUTH TWICE DAILY active Not Available Not Available No t Available Vitamin C 500 mg tablet TAKE 1 TABLET BY MOUTH EVERY DAY active Not Available Not Available No t Available azithromy logan 250 mg tablet 10/27 completed Not Available Not Available Not Available lisinopri l 20 mg tablet TAKE 1 TABLET BY MOUTH EVERY DAY 01/24 completed hurt kidneys Not Available Not Available Not Available glipizide 10 mg tablet TAKE 1 TABLET BY MOUTH TWICE DAILY active Not Available Not Available No t Available prednison e 20 mg tablet 06/04 completed Not Available Not Available Not Available isosorbid e mononitra te ER 30 mg tablet,ex tended release 24 hr TAKE 1 TABLET BY MOUTH ONCE DAILY active Not Available Not Available No t Available verapamil ER (SR) 180 mg tablet,ex tended release take 1 tablet by mouth once daily 11/18 completed Not Available Not Available Not Available clobetaso l 0.05 % topical cream apply twice a day topicall y to PSORIASI S FOR UP TO 2 WEEKS PER MONTH NEEDED active Not Available Not Available No t Available aspirin 81 mg tablet,de layed release 10/27 completed Not Available Not Available Not Available tramadol 50 mg tablet active Not Available Not Available Not Available simvastat in 40 mg tablet active Not Available Not Available Not Available levothyro xine 75 mcg tablet TAKE 1 TABLET BY MOUTH EVERY DAY active Not Available Not Available No t Available levothyro xine 88 mcg tablet Take 1 tablet every day by oral route. 11/18 completed Not Available Not Available Not Available methotrex ate sodium 2.5 mg tablet take 4 tablets by mouth ONCE every week 05/06 completed Not Available Not Available Not Available amlodipin e 10 mg tablet TAKE 1 TABLET BY MOUTH EVERY DAY active roland galo spec. Not Available Not Available Not Available levothyro xine 50 mcg tablet take 1 tablet by mouth once daily 05/06 completed Not Available Not Available Not Available simvastat in 20 mg tablet active Not Available Not Available Not Available metformin 1,000 mg tablet TAKE 1 TABLET BY MOUTH TWICE A DAY active due to kidney problems Not Available Not Available Not Available lidocaine 5 % topical patch active Not Available Not Available Not Available hydrochlo rothiazid e 12.5 mg capsule active Not Available Not Available Not Available gabapenti n 300 mg capsule TAKE ONE CAPSULE BY MOUTH 4 TIMES A DAY FOR NEUROPAT HY PAIN 06/04 completed Not Available Not Available Not Available aspirin 81 mg chewable tablet CHEW AND SWALLOW 1 TABLET BY MOUTH ONCE DAILY active Not Available Not Available No t Available folic acid 1 mg tablet TAKE 1 TABLET BY MOUTH EVERY DAY EXCEPT ON THE DAY YOU TAKE YOUR METHOTRE XATE. 05/06 completed Not Available Not Available Not Available Iophen C-NR 10 mg-100 mg/5 mL oral liquid Take 10 mL every 4 hours by oral route as needed. 06/04 completed Not Available Not Available Not Available mupirocin 2 % topical ointment 10/07 completed 10/07/16- pt no longer using.sg Not Available Not Available Not Available furosemid e 20 mg tablet Take 1 tablet every day by oral route PRN. 12/07 completed pt states 40 mg Not Available Not Available Not Available gabapenti n 100 mg capsule take 1 to 3 capsules by mouth three times a day if needed for SHINGLES PAIN 10/27 completed Not Available Not Available Not Available clobetaso l 0.05 % topical ointment 08/20 completed Not Available Not Available Not Available Vitamin D2 1,250 mcg (50,000 unit) capsule take 1 capsule by mouth weekly 10/27 completed Not Available Not Available Not Available sodium polystyre ne sulfonate oral powder TAKE 3 TEASPOON SFUL OF POWDER MIXED IN 8 OZ OF POWDER TWICE A DAY active Not Available Not Available No t Available pioglitaz one 30 mg tablet active Not Available Not Available Not Available clobetaso l 0.05 % scalp solution 08/20 completed Not Available Not Available Not Available doxycycli ne hyclate 100 mg tablet 06/04 completed Not Available Not Available Not Available verapamil ER 240 mg 24 hr capsule,e xtended release TAKE ONE CAPSULE BY MOUTH EVERY DAY 09/08 completed Pt only takes QOD Not Available Not Available Not Available Ventolin HFA 90 mcg/actua tion aerosol inhaler 11/18 completed Not Available Not Available Not Available verapamil ER 120 mg 24 hr capsule,e xtended release active Not Available Not Available Not Available oxycodone 5 mg tablet TAKE 1 TABLET BY MOUTH EVERY 6 HOURS FOR 4 DAYS NEEDED FOR SEVERE PAIN active Not Available Not Available No t Available Vitamin D3 25 mcg (1,000 unit) tablet active [employer] Not Available Not Available Not Available rosuvasta tin 10 mg tablet take 1 tablet by mouth once daily 05/17 completed Not Available Not Available Not Available rosuvasta tin 40 mg tablet TAKE 1 TABLET BY MOUTH EVERY DAY 2020 active Not Available Not Available Not Avai lable methotrex ate 2.5 mg tabs, 5 tabs po once per week. 10/08 completed Not Available Not Available Not Available furosemid e 20 mg po QD active hurt the kidneys Not Available Not Available Not Available Lantus Solostar U-100 Insulin 100 unit/mL (3 mL) subcutane ous pen INJECT 22 UNITS SUBCUTAN EOUSLY ONCE DAILY active Not Available Not Available No t Available OneTouch Verio test strips USE TO TEST BLOOD SUGAR 3 TIMES A DAY active Not Available Not Available No t Available methotrex ate 2.5 mg tablet Take 6 tablets every week by oral route as directed . 05/06 completed Not Available Not Available Not Available Marie-eloy 8.6 mg tablet TK 2 TS PO QD 06/21 completed Not Available Not Available Not Available Humira(CF ) Pen Ps-Uv-Ado l HS 80 mg/0.8 mL(1)-40 mg/0.4 mL(2)subc ut kit 11/18 completed Not Available Not Available Not Available BD Maria A 2nd Gen Pen Needle 32 gauge x USE 1 NEEDLE ONCE A DAY active Not Available Not Available No t Available Vitals Date Recorded Heart rate Oxygen saturation Oxygen saturation in Arterial blood by Pulse oximetry Body weight Systolic blood pressure Diastolic blood pressure Provider Name and Address Organization Details Last Updated DateTime 0 77 /min 95 % 95 % 082486. 75 g 169 mm[Hg] 76 mm[Hg] Cici Reddy [facility] 0 10:09:32 Date Recorded Body height Body mass index (BMI) Body weight Systolic blood pressure Diastolic blood pressure Provider Name and Address Organization Details Last Updated DateTime 06/21/2020 160.02 cm 52.8 kg/m2 770776.5 3 g 160 mm[Hg] 67 mm[Hg] Caroline Mccauley LPN [facility] 1 11:48:22 Date Recorded Systolic blood pressure Diastolic blood pressure Provider Name and Address Organization Details Last Updated DateTime 06/21/2020 116 mm[Hg] 62 mm[Hg] Freddie Quick MD [address] [place] [address], [address], [facility] 06/21/2020 12:28:11 Date Recorded Body height Body mass index (BMI) Body weight Systolic blood pressure Diastolic blood pressure Provider Name and Address Organization Details Last Updated DateTime 07/03/2020 160.02 cm 53.2 kg/m2 034556.5 1 g 136 mm[Hg] 72 mm[Hg] Caroline Mccauley LPN [facility] 1 10:13:01 Date Recorded Body height Body mass index (BMI) Body weight Systolic blood pressure Diastolic blood pressure Provider Name and Address Organization Details Last Updated DateTime 07/24/2020 160.02 cm 53.3 kg/m2 084306 g 160 mm[Hg] 56 mm[Hg] Caroline Mccauley LPN [facility] 1 11:09:40 Social History Question Answer Notes LastModified by Organizat ion Details LastModified Time Tobacco Smoking Status Former Smoker Quit in 2011 ALINE Fortune, [facility] 06/21/2020 11:53:47 What Is Your Level Of Alcohol Consumption? None Information not available 06/12/2014 What Is Your Level Of Caffeine Consumption? Moderate 10/27/17- 2-4 [place] [email or web address] Information not available 10/27/2017 How Much Tobacco Do You Chew? None [email or web address] Information not available 10/07/2016 What Type Of Diet Are You Following? REGULAR Information not available 07/18/2014 Which Illicit Or Recreational Drugs Have You Used? None Information not available 06/12/2014 Do You Or Have You Ever Used E-cigarettes Or Vape? Never Used Electronic Cigarettes Information not available 11/18/2018 Education 2 Year College [email or web address] Informat ion not available 10/27/2017 What Is Your Occupation? Disabled [email or web address] Information not available 10/27/2017 Are There Any Guns Present In Your Home? No Information not available 07/18/2014 Live Alone Or With Others? With Others [email or web address] Information not available 07/18/2014 Does The Patient Have Difficulty Speaking Cypriot? No Information not available 06/12/2014 Does The Patient Have Difficulty Reading Cypriot? No Information not available 06/12/2014 Patient Has Health Care Proxy Signed And In Chart Yes [email or web address] Information not available 11/18/2018 Marital Status Informatio n not available 07/18/2014 Mosquito Repellent Used Routinely No Information not available 07/18/2014 What Was The Date Of Your Most Recent Tobacco Screening? 07/24/2020 [email or web address] Information not available 07/24/2020 How Many Children Do You Have? 2 Information not available 07/18/2014 What Is Your Current Pack Years? 20-29packyears Information not available 07/18/2014 Seat Belts Used Routinely No Information not available 11/18/2018 Are You Sexually Active? No Information not available 07/18/2014 Smoke Alarm In Home Yes Information not available 11/18/2018 Do You Or Have You Ever Used Smokeless Tobacco? Never Used Smokeless Tobacco Information not available 11/18/2018 How Much Tobacco Do You Smoke? 0.5 PPD Information not available 07/18/2014 General Stress Level Low [email or web address] Information not available 10/27/2017 Do You Use Sunscreen Routinely? No Information not available 07/18/2014 How Many Years Have You Smoked Tobacco? 42 Information not available 07/18/2014 Sex: Unknown Functional Status None recorded. Mental Status None recorded. Family History Nothing Reported. Medical History Condition Response Diabetes Type II Y Obesity Y Hyperlipidemia Y Hypothyroid Y Hypertension Y psoriasis Y Gynecological History Statement/Question Response Menses Monthly N History of Abnormal Pap N Obstetrics History GPAL:G 0 P 0 0 0 0 Immunizations Vaccine Type Date Status Note Provider Nam e and Address Organization Details Recorded Time Influenza, split virus, quadrivalent, PF 5 completed Not Available [facility] 03/11/2019 02:19:45 Pneumococcal conjugate PCV 13 5 completed Not Available [facility] 03/11/2019 02:19:45 Influenza, split virus, quadrivalent, PF 6 completed Not Available [facility] 03/11/2019 02:21:04 pneumococcal polysaccharide PPV23 7 completed Not Available [facility] 03/11/2019 02:35:34 Td (adult) 3 completed Freddie Quick MD [address] [place] [address], [phone] [place], [place] 10/07/2016 12:07:51 Influenza, split virus, quadrivalent, PF 9 completed Not Available [facility] 03/11/2019 02:24:08 Influenza, split virus, quadrivalent, preservative 8 completed Shannan Burch [facility] [place] 05/17/2018 11:45:44 Influenza, high-dose, quadrivalent, PF 0 completed Ana Mc MA [facility] [place] 12/08/2019 10:10:31 Past Encounters Encounter ID Performer Location Encounter Start Date Encounter Closed Date Diagnosis/Indication Diagnosis SNOMED-CT Code Diagnosis ICD10 Code [id number] Kamryn MORENO, [facility], [address] [place] [address] 06/12/2014 10:14:31 06/14/2014 15:23:52 Benign essential hypertension 1973795 Mixed hyperlipidemia 267 415031 Hypothyroidism 82803736 Type 2 rolly betes mellitus 56053859 Carotid ar arleth stenosis 80288399 Vitamin D deficiency 347 11152 Obesity 508044661 [id number] Sofía Johnson , [facility], [address] [place] [address] 07/18/2014 10:26:42 07/18/2014 12:07:09 Benign essential hypertension 9881672 Mixed hyperlipidemia 267 549330 Angina pectoris 01812732 0 Type 2 rolly betes mellitus 49029514 Kidney disease 32871670 Carotid ar arleth stenosis 67007942 Adult [facility] th examination [id number] Mariann Reyes NP , [facility], [address] [place] [address] 09/06/2014 09:10:14 09/06/2014 10:24:12 Type 2 diabetes mellitus [id number] JOSH, [facility], [address] [place] [address] 09/19/2014 09:31:09 09/19/2014 10:44:10 Type 2 diabetes mellitus 95237436 Hyperlipidemia 53125270 [id number] MK Warner, [facility], [address] [place] [address] 10/25/2014 09:45:42 10/25/2014 10:39:10 Influenza vaccine needed 1166386612 106 Administra tion of pneumococcal vaccine 17084300 Type 2 rolly betes mellitus 59058830 Benign ess ential hypertension 5334308 Hyperlipidemia 03463253 Active or passive immunization 875547522 Kidney disease 16902349 [id number] MK Warner, [facility], [address] [place] [address] 01/24/2015 09:37:01 01/24/2015 11:11:32 Type 2 diabetes mellitus 18223496 E11.21 E11.42 Kidney disease 82194268 N08 Benign ess ential hypertension 6152452 I10 Hyperlipidemia 06395091 E78.5 Insulin tr eated type 2 diabetes mellitus 946271178 Z79.4 Lumbar radiculopathy 128 264230 M54.16 [id number] MK Warner, [facility], [address] [place] [address] 06/05/2015 09:39:21 06/05/2015 10:56:34 Hyperlipidemia 70370974 E78.5 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 E11.610 Type 2 rolly betes mellitus 72375519 E11.21 E11.42 Hypothyroidism 23712080 E03.9 Benign ess ential hypertension 8281670 I10 Psoriasis 5635609 L40.9 Vitamin D deficiency 347 99465 E55.9 Angina pectoris 48329299 0 I20.9 Lumbar radiculopathy 128 063310 M54.16 Morbid obesity 765159522 E66.01 [id number] MK Warner, [facility], [address] [place] [address] 09/05/2015 09:58:34 09/05/2015 11:42:27 Adult health examination 480224538 Z00.00 Benign ess ential hypertension 5638909 I10 Lumbar radiculopathy 128 681566 M54.16 Angina pectoris 35178708 0 I20.9 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 E11.610 Morbid obesity 888868834 E66.01 Vitamin D deficiency 347 21734 E55.9 Hypothyroidism 90793701 E03.9 Type 2 rolly betes mellitus 78534788 E11.21 E11.42 Hyperlipidemia 97635158 E78.5 Carotid ar arleth stenosis 11172543 I65.29 Psoriasis 2939417 L40.9 Kidney disease 23291211 N08 Greater tr ochanteric pain syndrome 2370392 M70.60 Multiple joint pain 3567 8005 M25.50 [id number] MK Warner, [facility], [address] [place] [address] 12/17/2015 09:30:01 12/17/2015 10:45:44 Benign essential hypertension 2141492 I10 Mixed hyperlipidemia 267 104212 E78.2 Active or passive immunization 712706857 Z23 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 E11.610 Morbid obesity 431364262 E66.01 Multiple complications due to type 2 diabetes mellitus 913397265 E11.8 Hypothyroidism 54184275 E03.9 [id number] MK Warner, [facility], [address] [place] [address] 02/19/2016 11:54:40 02/19/2016 12:47:06 Abscess 454143959 L02.91 [id number] Mariann Reyes NP FP, [facility], [address] [place] [address] 03/17/2016 11:30:42 03/17/2016 12:52:25 Benign essential hypertension 0488701 I10 Multiple complications due to type 2 diabetes mellitus 152369785 E11.8 Medication monitoring 39 3257780 Z51.81 Screening for malignant neoplasm of colon 065152106 Z12.11 Morbid obesity 469526730 E66.01 Hyperlipidemia 30342894 E78.5 Carotid ar arleth stenosis 76457435 I65.29 [id number] Mariann Reyes NP FP, [facility], [address] [place] [address] 04/01/2016 13:16:50 04/01/2016 14:22:09 Bronchitis 84680343 J40 [id number] MK Warner, [facility], [address] [place] [address] 06/04/2016 14:14:52 06/04/2016 15:31:53 Benign essential hypertension 9985691 I10 Mixed hyperlipidemia 267 171651 E78.2 Morbid obesity 954820427 E66.01 Multiple complications due to type 2 diabetes mellitus 388724161 E11.8 Recurrent depression 191 475916 F33.9 Active or passive immunization 251894304 Z23 [id number] MK Warner, [facility], [address] [place] [address] 08/20/2016 10:05:23 08/20/2016 11:08:41 Pre-surgery evaluation 220584169 Z01.818 Multiple complications due to type 2 diabetes mellitus 680083139 E11.8 [id number] MD JOSH Russo, [facility], [address] [place] [address] 10/07/2016 11:17:11 10/07/2016 12:37:17 Adult health examination 212159598 Z00.00 Benign ess ential hypertension 0589191 I10 Multiple complications due to type 2 diabetes mellitus 636733565 E11.8 Morbid obesity 436861193 E66.01 Vitamin D deficiency 347 03657 E55.9 Hypothyroidism 19575823 E03.9 Hyperlipidemia 24268860 E78.5 Carotid ar arleth stenosis 63594169 I65.29 Psoriasis 2866329 L40.9 [id number] Chanda Dias MD , [facility], [address] [place] [address] 05/06/2017 13:34:45 05/06/2017 14:59:00 Benign essential hypertension 7052104 I10 Morbid obesity 858243280 E66.01 Herpes zoster 7836207 B0 2.9 Lumbar radiculopathy 128 292040 M54.16 [id number] Freddie Quick MD , [facility], [address] [place] [address] 10/27/2017 11:24:56 10/27/2017 12:20:18 Adult health examination 126915027 Z00.00 Depression screening 171 605593 Z13.89 Benign ess ential hypertension 4861729 I10 Multiple complications due to type 2 diabetes mellitus 986429814 E11.8 Morbid obesity 647668926 E66.01 Vitamin D deficiency 347 57601 E55.9 Hypothyroidism 20322986 E03.9 Hyperlipidemia 25030596 E78.5 Carotid ar arleth stenosis 74762591 I65.29 Psoriasis 0969720 L40.9 Chronic ki dney disease 732028581 N18.9 [id number] Freddie Quick MD , [facility], [address] [place] [address] 02/07/2018 10:19:41 02/08/2018 12:34:20 Dyspnea on exertion 13986428 R06.09 Hypoxia 654161529 R09.02 Chest pain 39601708 R07. 9 [id number] Freddie Quick MD , [facility], [address] [place] [address] 05/17/2018 11:35:27 05/17/2018 12:28:00 Benign essential hypertension 1575648 I10 Multiple complications due to type 2 diabetes mellitus 595157437 E11.8 Morbid obesity 314719808 E66.01 Vitamin D deficiency 347 43432 E55.9 Hypothyroidism 06529389 E03.9 Hyperlipidemia 75269264 E78.5 Carotid ar arleth stenosis 83740134 I65.29 Psoriasis 0551879 L40.9 Chronic ki dney disease 192311939 N18.9 [id number] Freddie Quick MD , [facility], [address] [place] [address] 11/18/2018 10:37:47 11/18/2018 11:48:06 Adult health examination 192672689 Z00.00 Depression screening 171 310780 Z13.89 Active or passive immunization 688040397 Z23 Benign ess ential hypertension 2438711 I10 Multiple complications due to type 2 diabetes mellitus 730893805 E11.8 Morbid obesity 561344680 E66.01 Vitamin D deficiency 347 52696 E55.9 Hypothyroidism 84819819 E03.9 Hyperlipidemia 04872383 E78.5 Carotid ar arleth stenosis 37105640 I65.29 Psoriasis 4473761 L40.9 Chronic ki dney disease 752131410 N18.9 Screening for malignant neoplasm of colon 070695856 Z12.11 Constipation 93144589 K5 9.00 Low back pain 084599914 M54.5 [id number] Freddie Quick MD , [facility], [address] [place] [address] 12/08/2019 09:57:53 12/11/2019 11:31:41 Hyperlipidemia 77376650 E78.5 Multiple complications due to type 2 diabetes mellitus 058905222 E11.8 Benign ess ential hypertension 3957491 I10 Chronic ki dney disease 186932106 N18.9 Hypothyroidism 97731147 E03.9 Carotid ar arleth stenosis 82791289 I65.29 Psoriasis 3799517 L40.9 Vitamin D deficiency 347 09000 E55.9 Morbid obesity 327107434 E66.01 Screening for malignant neoplasm of colon 184440084 Z12.11 Constipation 20007457 K5 9.00 Anemia 568672338 D64.9 [id number] Ana Mc MA , [facility], [address] [place] [address] 12/08/2019 09:59:45 12/11/2019 10:11:59 Active or passive immunization 513815451 Z23 [id number] Freddie Quick MD , [facility], [address] [place] [address] 06/21/2020 11:46:12 06/24/2020 14:55:36 Hyperlipidemia 56707907 E78.5 Multiple complications due to type 2 diabetes mellitus 812772603 E11.8 Benign ess ential hypertension 9020611 I10 Chronic ki dney disease 113051606 N18.9 Hypothyroidism 33794651 E03.9 Carotid ar arleth stenosis 84807371 I65.29 Psoriasis 3502096 L40.9 Vitamin D deficiency 347 82758 E55.9 Morbid obesity 071984892 E66.01 Screening for malignant neoplasm of colon 668119581 Z12.11 Constipation 98645124 K5 9.00 Hip pain 42040152 M25.55 9 [id number] Freddie Quick MD , [facility], [address] [place] [address] 07/03/2020 09:16:45 07/03/2020 10:37:27 Trochanteric bursitis of right hip 7740036042 27731 M70.61 Trochanter ic bursitis of left hip 9368449686 46651 M70.62 [id number] Freddie Quick MD , [facility], [address] [place] [address] 07/24/2020 11:00:32 07/24/2020 11:39:05 Trochanteric bursitis of left hip 5622649598 05401 M70.62 Trochanter ic bursitis of right hip 5517519933 37866 M70.61 Health Concerns Section Related Observation LastModified by Organization Detai ls LastModified Time None Recorded Concern Status LastModified by Organization Details LastModified Time None Recorded Advance Directives Directive None Recorded Payers Encounter Date Sequence Insurance Name Policy Number Policy Bell Covered Member ID Bell Member ID Guarantor Name 12/08/2019 2 [place] [facility] Kiara Pollack [id number] Kiara Pollack 12/08/2019 1 [employer] OF [facility] (EPO) [id number] Jovannylloyd Pollack [id number] Kiara Pollack 12/08/2019 2 [place] [facility] Kiara Pollack [id number] Kiara Pollack 12/08/2019 1 [employer] [facility] (EPO) [id number] Jovannymartha Pollack [id number] Kiara Pollack 06/21/2020 2 [place] [facility] Kiara Pollack [id number] Kiara Pollack 06/21/2020 1 [employer] OF [facility] SARAH-MULU (EPO) [id number] Jovannymartha Pollack [id number] Kiara Pollack 07/03/2020 2 [place] [facility] Kiara Pollack [id number] Kiara Pollack 07/03/2020 1 [employer] [place] SMITH-[place] ([place] [id number] Jovannyclint Pollack [id number] Kiara Pollack 07/24/2020 2 [place] [facility] Kiara Arellanoi [id number] Kiara Pollack 07/24/2020 1 [employer] [place] SMITH-[place] ([place]PO) [id number] Jovannymartha Pollack [id number] Kiara Pollack Notes Date Note Type Note Provider Name and Address Organization Details Recorded Time 0 text/html [facility] HyperlipidemiaReported bypatient.Duration:chronic Control:well controlled; LDL has been <70, goal is <100 Compliance:compliant with medications Barriers to CareNo identified barriers to care Context:Diabetes Associated Symptoms:normal liver function test; no chest discomfort; no dyspnea Ability to Manage Self CarePatient feels confident in ability to self manage conditionVMG HypertensionReported bypatient.Context:No congestive heart failure;Kidney disease;Diabetes Control:BP Goal less than; Treated with medications; Patient understands medications are to lower blood pressure Compliance:Compliant with medications; Compliant with follow-up visits;Noncompliant with exercise(unable due to neuropathy) Barriers to CareNo identified barriers to care Self Care:not doing home bp monitoring Associated Symptoms:No chest pain; No shortness of breath Ability to Manage Self CarePatient feels confident in ability to self manage condition In-person visit: Patient with HTN, type 2 DM, obesity, lumbar radiculopathy, hyperlipidemia, Vitamin D deficiency, hypothyroidism, caroid artery stenosis, PVD, psoriasis and CKD. Sporadic medical care with long history of non-adherence. Was referred for screening colonoscopy (never had one before), but she canceled due to feeling uneasy about the anesthesia procedure (due to known history of carotid stenosis). Patient reports Dr. Ridley (Vascular Surgery) cleared her for colonoscopy, but ultimately decided not to pursue. Last seen in 11/10/2018. Marked improvement in her diabetes and BP control. Recent Hgb A1c was 7.2 (07/2019) improved from 7.9 (07/2018). Erratic BS. Self decreased the Lantus dose due to a fear of hypoglycemia. Discussed about CGM. Seeing Endocrine who recommended adding a short-acting insulin. But declines this intervention. Goal of <7.0 discussed. Trying life style modifications. Suffers from chronic pain. Was on Methotrexate and Folic Acid for psoriasis, but now off. Gets routine labs from Dermatology. Routinely getting VIKKI and Carotid US due to carotid stenosis. Followed by Dr. Davila (Vascular). Also followed by Dr. Negrete (Nephrology). Was told by Dr. Negrete her CKD was due to Lisinopril and NOT diabetes. Last Pap/HPV was normal in 2014 (due this year). States never had abnormal Pap smears. States she no longer wish to have breast cancer screening. Previously gone through multiple mammograms. States I am done with them . Finds the procedures too painful. Also had to undergo biopsies and now scar tissues, which led to more testing. All benign as far as she knows. Understands that she is not getting a recommended screening done. Quit smoking since 03/2012. Getting annual eye exam. No diabetic retinopathy per verbal report (Dr. Espinal). Quite frustrated with her weight. Previously saw camera machinist, Riley Siu RD. Discussed labs. Discussed health care proxy and to share with family her thoughts and plans. Recent labs did not include Lipid panel, was sent to [facility] per patient request. Recently found to have a drop in her Hgb/Hct 10.2/34.4 (from 11.8/38.0). States she just did new labs for Dr. Negrete. BP elevated today. Labile BP. Has BP machine, but not checking at home. Discussed checking BP at home vs. adjusting medication today. Will get more readings and report back to us. Influenza vaccine administered today. Freddie Quick MD [address] [place] [address], [phone], [facility] 12/08/2019 13:29:31 1 text/html [facility] DiabetesReported bypatient.Review finger sticks:[id number] usually <100; 30 day average 80-115 Duration:chronic Control:improved since last visit; treated with insulin and oral medications; Hemoglobin A1C has been 7-8 (although last one was 7.3, down from 8.1 .); Hemoglobin A1C goal is less than 8.0 Compliance:compliant with medications; Patient understands medications are to reduce blood sugar and control diabetes; compliant with follow-up visits; compliant with home glucose monitoring Barriers to Careunder stress; Likes food ! Self Care:monitoring glucose daily Context:normal range of home blood sugars (in the low 100s); seeing eye doctor regularly; checking feet regularly; taking aspirin daily; not missing doses of medications; no side effects from medications Associated Symptoms:no weight loss; no increased thirst; no increased appetite;numbness of feet;kidney disease;neuropathy Ability to Manage Self CarePatient feels confident in ability to self manage conditionVMG HyperlipidemiaReported bypatient.Duration:chronic Control:well controlled; LDL has been <70, goal is <100 Compliance:compliant with medications Barriers to CareNo identified barriers to care Context:Diabetes Associated Symptoms:normal liver function test; no chest discomfort; no dyspnea Ability to Manage Self CarePatient feels confident in ability to self manage conditionVMG HypertensionReported bypatient.Context:No congestive heart failure;Kidney disease;Diabetes Control:BP Goal less than; Treated with medications; Patient understands medications are to lower blood pressure Compliance:Compliant with medications; Compliant with follow-up visits;Noncompliant with exercise(unable due to neuropathy) Barriers to CareNo identified barriers to care Self Care:not doing home bp monitoring Associated Symptoms:No chest pain; No shortness of breath Ability to Manage Self CarePatient feels confident in ability to self manage conditionaVMG-Chronic Pain 2Reported bypatient.Duration:Chronic pain began >5years ago (for 34 years.); Pain is worsening; Pain is intermittent with periods of improvement and flaresof worsening pain Context:Pain is due to degenerative joint disease; Patient has chronic low back pain (biggest problem); 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 Pain is right across her back. Occ gets jerk of pain with some movements. Feels weakness in her legs. Pain assesment in last week 0 is no pain and 10 is pain as bad as it can bePain level on average in the last week 7 (when walking and sitting); Pain level at its worst in the past week 4 (worse 8/10.) Patient currently controls pain with :Non-narcotic medications; gabapentin Patient with HTN, type 2 DM, obesity, lumbar radiculopathy, hyperlipidemia, Vitamin D deficiency, hypothyroidism, caroid artery stenosis, PVD, psoriasis and CKD for a follow-up evaluation. Patient has historically declined several medical advices, such as vaccinations and cancer screening. Sporadic medical care with long history of non-adherence. Was referred for screening colonoscopy (never had one before), but she canceled due to feeling uneasy about the anesthesia procedure (due to known history of carotid stenosis). Patient reports Dr. Davila (Vascular Surgery) cleared her for colonoscopy, but ultimately decided not to pursue. Overall improvement in her diabetes and BP control. States self decreased the Lantus dose due to a fear of hypoglycemia. Discussed about CGM. Seeing Endocrine who recommended adding a short-acting insulin. But declined this intervention. Suffers from chronic pain. Currently on Methotrexate and Folic Acid for psoriasis. Gets routine labs from Dermatology. Routinely getting VIKKI and Carotid US due to carotid stenosis. Followed by Dr. Davila (Vascular). Also followed by Dr. Negrete (Nephrology). States she was told by Dr. Negrete her CKD was due to Lisinopril and NOT diabetes. Last Pap/HPV was normal in 2014 (due in 2019). Never had abnormal Pap smears. States she no longer wish to have breast cancer screening. Previously gone through multiple mammograms. States I am done with them . Finds the procedures too painful. Also had to undergo biopsies and now scar tissues, which led to more testing. All benign as far as she knows. Understands that she is not getting a recommended screening done. Quit smoking since 03/2012. No diabetic retinopathy per verbal report (Dr. Espinal). Quite frustrated with her weight. Recently saw camera machinist, Riley Siu RD. Discussed labs. Discussed health care proxy and to share with family her thoughts and plans. Refuses COVID-19 vaccinations. States bilateral lateral hip pain. Suspects bursitis. No radiating pain. No swelling. Freddie Quick MD [address] [place], [phone], [facility] 06/21/2020 20:43:59 1 text/html Patient with bilateral lateral hip pain in the greater trochanter areas. No trauma or fall. Underlying severe obesity. Chronic since 2012. Previously evaluated by outside Sports Medicine and was diagnosed with trochanteric bursitis. Never had injections. Underlying diabetes. Increased pain with movements, prolonged standing and adduction. Freddie Quick MD [address] [place], [address], [facility] 07/03/2020 13:29:44 1 text/html Present for right hip injection. Patient with bilateral lateral hip pain in the greater trochanter areas. No trauma or fall. Underlying severe obesity. Chronic since 2012. Previously evaluated by outside Sports Medicine and was diagnosed with trochanteric bursitis. Never had injections. Underlying diabetes. Increased pain with movements, prolonged standing and adduction. Received an injection to the left side 3 weeks ago with marked improvement in her pain. Freddie Quick MD [address] [place], [phone], [facility] 07/24/2020 11:44:18 OBGyn Episode No OBEpisode recorded.
--- OUTSIDE RECORDS SUMMARY | 2024-02-14 14:26 | XMS_ITS | Continuity of Care Document ---
Author Organization [facility] [address] [facility] [address] [place] [address] Phone [phone] Care Team Providers Care Revenue Stamper Name Role Phone Gómez Peoples Care Team Information Weighmaster Lead [phone] Problems Active Problems Provider Date Type 2 [...] SIG Qnty Indications Order ing Provider Date Idmnzpank04jt Tablets 2 tablets by mouth every day 90tabs Danny Shultz M.D. 02/07/2024 Mounjaro2.5mg/0.5ML Solution Auto-Inject inject 0.5 milliliters weekly 2ml Danny Shultz M.D. 01/26/2024 BD Pen Needle/Maria A 2ND Gen/32G X 4mm32G X 4 mm Misc 1 pen needle to insulin pen once a day DX:E11.8 100units E11.8 Danny Shultz M.D. 10/27/2023 Ezsyeddrc97ym Tablets Take 1 Tablet By Mouth Twice Daily 180tabs Danny Shultz M.D. 11/26/2021 Levothyroxine Wnjijp35cfk Tablets Take 1 Tablet By Mouth Every [...] daily 400units Danny Shultz M.D. 09/12/2021 Pioglitazone YOL35rp Tablets Take 1 Tablet By Mouth Every Day as Directed 90tabs Danny Shultz M.D. Lantus Ujovwwqm716Zpmo/ML Solution Pen-Inject Inject 14 Units Subcutaneously In Am Dx:E11.8 30units E11Eze8 Danny Shultz M.D. Isosorbide Mononitrate ER30mg Tablets ER 24HR Take 1 Tablet By Mouth Daily Unknown Rosuvastatin Solukiz17lb Tablets Take 1 Tablet By Mouth Every Day Freddie Quick Carvedilol6.25mg Tablets Take 1 Tablet By Mouth Twice Daily Unknown One Touch Verio50 Test STR (New) 50 Use 1 Strip To Check Glucose Three Times Daily Dx: E11.9 400units Danny Shultz M.D. Ventolin KVH005(90Base) mcg/Act Aerosol Inhale 2 Puffs By Mouth [...] Glucose Fingerstick 181 Laboratory test finding 03/08/2023 [facility] TSH With Reflex To FT4 3.76 uIU/mL (0.4-4.2) Hemoglobin A1c 7.1 % High (4.0-5.6) 2 Laboratory test finding 09/23/2022 Inhouse Glucose Fingerstick 95 Hemoglobin A1c With Est Glucose 09/16/2022 [facility] Reference Lab Hemoglobin A1c 8.1 % High (4.0-5.6) 3 Estimated [place] ge Glucose 186 mg/dL Laboratory test finding 09/16/2022 [facility] Reference Lab TSH With Reflex To FT4 6.01 uIU/mL High (0.4-4.2) Free T4 1.34 ng/dL (0.70-1.8 0) Laboratory test finding 06/18/2022 Inhouse Glucose Fingerstick 140 Laboratory test finding 06/15/2022 [facility] Reference Lab Hemoglobin A1c 7.6 % High (4.0-5.6) 4 TSH 3.34 uIU/mL (0.4-4.2) Laboratory test finding 03/25/2022 [facility] Reference Lab TSH With Reflex To FT4 <pending> Laboratory test finding 03/25/2022 Inhouse Glucose Fingerstick 122 Laboratory test finding 03/19/2022 [facility] Lab Hemoglobin A1c 8.0 % High (4.0-5.6) 5 TSH 12.90 uIU/mL High (0.4-4.2) Laboratory test finding 11/27/2021 Inhouse Glucose Fingerstick 126 Laboratory test finding 11/19/2021 [facility] Reference Lab TSH 3.83 uIU/mL (0.4-4.2) Hemoglobin A1c 7.7 % High (4.0-5.6) 6 1 Prediabetes: 5.7 - 6 .4 Diabetes: >6.4 Glycemic control for adults with diabetes: <7.0 2 MONITORING: In known diabetic patients, hemoglobin A1c targets should be discussed with health care provider. DIAGNOSTIC USE: The [place] Diabetes [employer] (ADA) and the World Health [...] with health care provider. DIAGNOSTIC USE: The [place] Diabetes Association (ADA) and the World Health [...] with health care provider. DIAGNOSTIC USE: The [place] Diabetes Association (ADA) and the World Health [...] with health care provider. DIAGNOSTIC USE: The [place] Diabetes Association (ADA) and the World Health [...] with health care provider. DIAGNOSTIC USE: The [place] Diabetes Association (ADA) and the World Health [...]
[2024-02-14 14:31] VITALS: BP 152/74; PULSE 74; O2SAT 89
--- NOTE | 2024-02-14 14:31 | MHC.OFFVIS ---
Vital Signs 02/14/24 14:31 Height 5 ft 3 in BMI Reason not done Patient refused/unable BP 152/74 H Blood Pressure Location Lt brachial Position Sitting Pulse 74 Pulse Source Pulse Oximeter Pulse Oximetry (%) 89 L Oxygen Delivery Method Room Air Intake Visit Reasons: chronic cough Allergies lisinopril [LISINOPRIL] Allergy (Unknown, Verified 02/14/24 14:38) KIDNEY FAILURE cephalexin Adverse Reaction (Mild, Verified 02/14/24 14:38) hives sulfamethoxazole [From Sulfamethoxazole-Trimethoprim] Adverse Reaction (Mild, Verified 02/14/24 14:38) Hives trimethoprim [From Sulfamethoxazole-Trimethoprim] Adverse Reaction (Mild, Verified 02/14/24 14:38) Hives HPI HPI chronic cough: Details: Kiara is a pleasant 68 year old female, former smoker, quit 2012 with 20+ pack year history with underlying asthma, CKDIV, HTN, DMII, and CHF. She was referred by PCP for pulmonary evaluation for chronic cough. She reports dry cough started last December and has persisted with associated dyspnea on minimal exertion, significant orthopnea and BLE edema. She is under the care of cardiology through [facility] and has been prescribed lasix taking 60 mg. She also noted that she does not take consistently if she has to be out of the house for an extended period of time. She was diagnosed with asthma as an adult, never required intubation. She is unsure of seasonal allergies. She reports possible occupational exposures working in [employer] x 30+ years. She reports son with allergies and asthma, otherwise no pertinent family history. [facility] Medical History Diabetes Lower extremity weakness Surgical History No pertinent past surgical history Social History Housing: House Patient Tobacco Use Status: Former Tobacco user e-Cigarette/Vaping Use: Never Used Second Hand Smoke Exposure: No Current occupational status: retired Cognitive needs: No Hearing needs: No Vision needs: No Review of Systems Const Denies chills, Denies excessive sweating, Denies fever(s), Denies headache(s) and Denies night sweats Eyes Denies dry eyes, Denies irritation and Denies itchy eyes ENT Reports Normal hearing present, Denies headache(s), Denies nasal congestion, Denies nasal discharge and Denies sore throat Card Denies chest pain, Denies chest pain at rest, Denies chest pain with activity, Denies claudication and Denies paroxysmal nocturnal dyspnea Resp Denies chest congestion, Denies excessive phlegm production, Denies pain on inspiration, Denies pain with cough and Denies stridor Musc Denies myalgias Neuro Reports Normal hearing present and Denies headache(s) Endo Denies excessive sweating Jason/Lymph Denies lymphadenopathy Aller/Immun Denies itchy eyes and Denies seasonal rhinorrhea Physical Exam Vital Signs: Last Vital Signs Pulse 74 02/14/24 14:31 BP 152/74 H 02/14/24 14:31 Pulse Ox 89 L 02/14/24 14:31 Oxygen Delivery Method Room Air 02/14/24 14:31 Const General: cooperative, healthy appearing, comfortable, no acute distress, well developed and alert Nutritional Appearance: obese Orientation/consciousness: patient oriented x3 HEENT Head: Yes normal to inspection, Yes normocephalic and Yes atraumatic Ears: hearing grossly normal bilaterally and external ears normal Eyes General: appearance normal, both eyes and all related structures Eyelids: Yes eyelids normal Sclerae: sclerae normal EOM: EOMs intact bilaterally Neck Neck: Yes normal visual inspection and Yes no lymphadenopathy Lymphatic: no lymphadenopathy noted Chest Chest palpation & inspection: normal inspection of the chest Resp Effort & Inspection: normal respiratory effort, able to speak in complete sentences, no audible wheezes, no cough, no stridor, not tachypneic, no tripod positioning and no use of accessory muscles Auscultation: diminished lung sounds Cardio Jugular venous distension: no JVD Rate: regular rate Rhythm: regular rhythm Skin Other: warm, dry General skin exam: no rashes or lesions noted Neuro General: patient oriented x3 Cranial nerves: Yes Normal hearing present Cognition (Neuro): normal cognition Extrem Other: 3+ pitting BLE edema Psych Appearance: grossly normal and well kempt Speech and movement: Normal speech and movement present and Clear speech present Affect: normal affect Attitude: cooperative Thought process: Normal thought process present Thought content: Normal thought content present Insight: Good insight present (Psych) Judgement: Good judgement present (Psych) Results Reviewed Results Reviewed: [facility] [address] [place] [address] XRay Report Signed Patient: Kiara Pollack MR#: [id number] : 1955 Acct:[id number] Age/Sex: 68 / F ADM Date: 12/07/23 Loc: HO.HMGCX [facility]ending [facility] Ordering Physician: Gómez Peoples Date of Service: 12/07/23 Procedure(s): XR chest 2V Accession Number(s): [id number] cc: Gómez Peoples~ EXAMINATION: XR CHEST CLINICAL INFORMATION: Orthopnea. COMPARISON: November 04, 2023. TECHNIQUE: PA and lateral views of the chest were obtained. FINDINGS: The cardiac silhouette appears moderately enlarged suggesting cardiomegaly; pericardial effusion cannot be confirmed or excluded. This finding appears unchanged compared with November 04, 2023. Mild atherosclerotic aorta. No acute infiltrate, effusion, or pneumothorax is seen. No change in approximately 1 cm left mid to upper lung field calcified granuloma. Mild degenerative changes of the spine. XR/XR chest 2V IMPRESSION: Findings as above. Electronically signed by: Nikolay Hidalgo MD 12/07/2023 04:45 PM EDT Dictated By: Nikolay Hidalgo Signed By: <Electronically signed by Nikolay Hidalgo in OV> 12/07/23 1645 DD/ 1406 TD/TT: 12/07/23 1411 Wireless Team Member: Assessment & Plan Assessment & Plan (1) Asthma: Code(s): J45.909 - Unspecified asthma, uncomplicated Category: Medical (2) Chronic cough: Code(s): R05.3 - Chronic cough Category: Medical (3) Orthopnea: Code(s): R06.01 - Orthopnea Category: Medical (4) Shortness of breath: Code(s): R06.02 - Shortness of breath Category: Medical (5) Personal history of tobacco use: Code(s): Z87.891 - Personal history of nicotine dependence Category: Social Hx Plan Kiara's symptoms are likely multifactorial with contribution from pulmonary, cardiac and obesity/deconditioning etiologies. Discussed sending for PFT and RAST however patient declined. Will send for Chest CT to assess for underlying parenchymal conditions contributing to symptoms. Upon arrival to room patient satting 89% on room air, rechecked after resting 92% on RA. Discussed 6MWT however patient declined. Will empirically treat with Breo, previously prescribed Flovent however never received and using albuterol MDI frequently. Patient with significant BLE edema and orthopnea, advised to follow up with cardiology, attempt to be more compliant with lasix and low sodium diet. Echo 10/2023 LVEF 55-50% RVSP 34. Will follow up to review results in 6-8 weeks or sooner if needed. All questions were answered and patient is in agreement of plan. Orders: Orders CT chest wo IV con Today R05.3 - Chronic cough, Z87.891 - Personal history of nicotine dependence Medications: New fluticasone furoate-vilanterol 100-25 mcg/dose (Breo Ellipta) 1 inh inhalation DAILY 60 ea 3RF Coding Level of Care Code New Pt Level 4 (01202) Complex EM visit Add On G2211 Diagnoses Asthma J45.909 Chronic cough R05.3 Orthopnea R06.01 Shortness of breath R06.02 Personal history of tobacco use Z87.891
== END 2024-02-14 15:23 | disposition home or self-care (01) ==
PROVIDERS: PCP Nurse Practitioner Family; Visit Provider Nurse Practitioner Family
DX: J45.909 Unspecified asthma, uncomplicated (principal); R05.3 Chronic cough; R06.01 Orthopnea; R06.02 Shortness of breath; Z87.891 Personal history of nicotine dependence
CPT/HCPCS: 99204

== ENCOUNTER 2024-02-18 16:16 | Outpatient (REF) | payer OTHER, MEDICAID, SELFPAY ==
--- NOTE | ~2024-02-18 | CT_ITS ---
EXAMINATION: CT CHEST WITHOUT CONTRAST CLINICAL INFORMATION: History of nicotine dependence. COMPARISON: CT chest with IV contrast 05/16/2022. TECHNIQUE: Multidetector volumetric CT imaging of the chest was done. Axial MIP volume rendering provided. Sagittal and coronal reformatted images were obtained. This CT examination was performed using dose optimization techniques as appropriate, variously including the following: *Automated exposure control *Adjustment of mA and/or kV according to patient size (this includes techniques or standardized protocols for targeted exams where dose is matched to indication/reason for exam; i.e. extremities or head) *Use of iterative reconstruction technique DLP: 403 mGy-cm FINDINGS: [employer]: Expanded lungs with mild thyromegaly. LUNGS: There is mild centrilobular emphysema with platelike atelectasis left lung apex. There are punctate 1 mm calcified granulomas right upper lobe, right lower lobe and bilateral lower lobes. There are no noncalcified pulmonary nodules visualized. MEDIASTINUM: Thyroid lobes are symmetric and normal. The central trachea and the bronchi are widely patent. Heart size and the great vessels are normal caliber. There is mild pericardial effusion. No abnormal size mediastinal lymph nodes seen. CORONARY ARTERY CALCIFICATION: Mild coronary artery calcifications are present. PLEURA: There is no pleural effusion. No pleural mass or thickening. AXILLA: No lymphadenopathy. UPPER ABDOMEN: Visualized liver, spleen appears unremarkable. The gallbladder is contracted with multiple radiopaque gallstones. OSSEOUS STRUCTURES: No lytic or sclerotic process seen CT/CT chest wo IV con IMPRESSION: 1 mm calcified granulomas throughout the lungs. No noncalcified nodules, mass or consolidation. Mild pericardial effusion and mild coronary artery calcifications. Lung RADS: 2, benign. Lung RADS S: Mild pericardial effusion. Recommend cardiology consult. Recommendation: Low-dose annual CT chest. Fleischner guidelines were followed. Electronically signed by: Yuri Caban MD 02/21/2024 08:33 AM [facility]
--- OUTSIDE RECORDS SUMMARY | 2024-02-18 16:18 | XMS_ITS | Continuity of Care Document ---
Author Organization [facility] [address] [facility] [address] [place] [address] Phone [phone] Care Team Providers Care Aluminum Fabrication Supervisor Name Role Phone Gómez Peoples Care Team Information Rent Collector + [phone] Problems Active Problems Provider Date Type 2 [...] SIG Qnty Indications Order ing Provider Date Bsurhndyz39wc Tablets 2 tablets by mouth every day 90tabs Danny Shultz M.D. 02/07/2024 Mounjaro2.5mg/0.5ML Solution Auto-Inject inject 0.5 milliliters weekly 2ml Danny Shultz M.D. 01/26/2024 BD Pen Needle/Maria A 2ND Gen/32G X 4mm32G X 4 mm Misc 1 pen needle to insulin pen once a day DX:E11.8 100units E11.8 Danny Shultz M.D. 10/27/2023 Egxgauzwb21xd Tablets Take 1 Tablet By Mouth Twice Daily 180tabs Danny Shultz M.D. 11/26/2021 Levothyroxine Heyplh79hxa Tablets Take 1 Tablet By Mouth Every [...] daily 400units Danny Shultz M.D. 09/12/2021 Pioglitazone HSS42on Tablets Take 1 Tablet By Mouth Every Day as Directed 90tabs Danny Shultz M.D. Lantus Qgjmazfl915Efjj/ML Solution Pen-Inject Inject 14 Units Subcutaneously In Am Dx:E11.8 30units E11Eze8 Danny Shultz M.D. Isosorbide Mononitrate ER30mg Tablets ER 24HR Take 1 Tablet By Mouth Daily Unknown Rosuvastatin Wiitfxz92gq Tablets Take 1 Tablet By Mouth Every Day Freddie Quick Carvedilol6.25mg Tablets Take 1 Tablet By Mouth Twice Daily Unknown One Touch Verio50 Test STR (New) 50 Use 1 Strip To Check Glucose Three Times Daily Dx: E11.9 400units Danny Shultz M.D. Ventolin OOY753(90Base) mcg/Act Aerosol Inhale 2 Puffs By Mouth [...] Glucose Fingerstick 181 Laboratory test finding 03/08/2023 [facility] Reference Lab TSH With Reflex To FT4 3.76 uIU/mL (0.4-4.2) Hemoglobin A1c 7.1 % High (4.0-5.6) 2 Laboratory test finding 09/23/2022 Inhouse Glucose Fingerstick 95 Hemoglobin A1c With Est Glucose 09/16/2022 [facility] Reference Lab Hemoglobin A1c 8.1 % High (4.0-5.6) 3 Estimated [place] ge Glucose 186 mg/dL Laboratory test finding 09/16/2022 [facility] Reference Lab TSH With Reflex To FT4 6.01 uIU/mL High (0.4-4.2) Free T4 1.34 ng/dL (0.70-1.8 0) Laboratory test finding 06/18/2022 Inhouse Glucose Fingerstick 140 Laboratory test finding 06/15/2022 [facility] Lab Hemoglobin A1c 7.6 % High (4.0-5.6) 4 TSH 3.34 uIU/mL (0.4-4.2) Laboratory test finding 03/25/2022 [facility] Lab TSH With Reflex To FT4 <pending> Laboratory test finding 03/25/2022 Inhouse Glucose Fingerstick 122 Laboratory test finding 03/19/2022 [facility] Lab Hemoglobin A1c 8.0 % High (4.0-5.6) 5 TSH 12.90 uIU/mL High (0.4-4.2) Laboratory test finding 11/27/2021 Inhouse Glucose Fingerstick 126 Laboratory test finding 11/19/2021 [facility] Reference Lab TSH 3.83 uIU/mL (0.4-4.2) Hemoglobin A1c 7.7 % High (4.0-5.6) 6 1 Prediabetes: 5.7 - 6 .4 Diabetes: >6.4 Glycemic control for adults with diabetes: <7.0 2 MONITORING: In known diabetic patients, hemoglobin A1c targets should be discussed with health care provider. DIAGNOSTIC USE: The [place] [employer] (ADA) and the World Health [...] with health care provider. DIAGNOSTIC USE: The [place] [employer] (ADA) and the World Health [...] with health care provider. DIAGNOSTIC USE: The [place] [employer] (ADA) and the World Health [...] with health care provider. DIAGNOSTIC USE: The [place] [employer] (ADA) and the World Health [...] with health care provider. DIAGNOSTIC USE: The [place] [employer] (ADA) and the World Health [...]
--- OUTSIDE RECORDS SUMMARY | 2024-02-18 16:18 | XMS_ITS | Data Portability ---
Author Organization [facility], [facility] Address [address] [place] [address] Care Team Providers Care Rough And Trueing Machine Operator Name Role Phone DANYA ALLEN Metal Rivet Machine Operator TANVIR RUST Vascular Surgeon GIANNI DAVILA Vascular Surgeon AMERICO CIFUENTES Psychologist MANUELITO PARISI Traffic Control Flagger GIANNI UNDERWOOD Booster Pump Oiler [phone] Assessment Encounter Date Assessment Date Assessment LastModified [...] was notified that the provider location is [facility]. Patient location: home During the visit the [...] capacity (TIBC), serum 2019 021 [facility], [address] [place], [address], 13:16:26 ferritin, serum or plasma 2019 021 [facility], [address] [place], [address], 13:35:30 vitamin B12, serum 2019 021 [facility], [address] [place], [address], 13:35:29 lipid panel, serum 2019 021 [facility], [address] [place], [address], 13:16:28 Referral None recorded. Procedures None recorded. Surgeries None recorded. Imaging None recorded. Medication Orders rosuvastat in 40 mg tablet 2019 020 [id number], [address] [place], [place], [id number], 0 13:08:48 Colace 100 mg capsule 2020 [id number], [address] [place] [address], [place], [id number], 12:42:16 aspirin 81 mg chewable tablet 2020 [id number], [address] [place] [address], [id number], 12:42:17 Patient TargetsNo targets recorded. Patient Instructions Encounter Date Encounter Id Patient Instructions Last Modified By Organization Details Last Modified Time 12/08/2019 [id number] After a discussi on of treatment options, which included consideration of best practices and patient preferences, the above treatment plan and objectives were adopted. [email or web address] Not available 12/08/2019 13:26:39 06/21/2020 [id number] After a discussi on of treatment options, which included consideration of best practices and patient preferences, the above treatment plan and objectives were adopted. [email or web address] Not available 06/21/2020 20:43:28 07/03/2020 [id number] After a discussi on of treatment options, [...] Available [facility] [address] [place], [address], 04/24/2020 13:16:25 04/25/1904/24/2020 BMP, serum or plasm a BUN 47 mg/dL (8-23) high Not Available [facility] [address] [place], [address], 04/24/2020 13:16:25 04/25/19 21 04/24/2020 BMP, serum or plasm a creatinine 2.1 mg/dL (0.5-1 .0) high Not Available [facility] [address] [place], [address], 04/24/2020 13:16:25 04/25/19 21 04/24/2020 BMP, serum or plasm a sodium 144 mmol/ L (133-1 45) Not Available [facility] [address] [place], [address], 04/24/2020 13:16:25 04/25/1904/24/2020 BMP, serum or plasm a potassium 5.1 mmol/ L (3.6-5 .2) Not Available [facility] [address] [place], [address], 04/24/2020 13:16:25 04/25/1904/24/2020 BMP, serum or plasm a chloride 106 mmol/ L (98-10 7) Not Available [facility] [address] [place], [address], 04/24/2020 13:16:25 04/25/19 21 04/24/2020 BMP, serum or plasm a bicarbonate 29 mmol/ L (22-29 ) Not Available [facility] [address] [place], [address], 04/24/2020 13:16:25 04/25/19 21 04/24/2020 BMP, serum or plasm a anion gap 9 (4-17) Not Available [facility] [address] [place], [address], 04/24/2020 13:16:25 04/25/19 21 04/24/2020 BMP, serum or plasm a calcium 9.5 mg/dL (8.6-1 0.5) Not Available [facility] [address] [place], [address], 04/24/2020 13:16:25 04/25/19 21 04/24/2020 BMP, serum [...] Available [facility] [address] [place], [address], 04/24/2020 13:16:25 04/25/19 21 04/24/2020 BMP, serum [...] Available [facility] [address] [place], [address], 04/24/2020 13:16:25 04/25/19 21 04/24/2020 iron + total iron- leonie ng capac ity (TIBC ), serum iron 75 mcg/d L (30-16 0) Not Available [facility] [address] [place], [address], 04/24/2020 13:16:26 04/25/19 21 04/24/2020 iron + total iron- leonie ng capac ity (TIBC ), serum unsaturated iron binding capac 311 mcg/d L (110-3 70) Not Available [facility] [address] [place], [address], 04/24/2020 13:16:26 04/25/19 21 04/24/2020 iron + total iron- leonie ng capac ity (TIBC ), serum est T. iron bind capacity 386 mcg/d L (140-5 30) Not Available [facility] [address] [place], [address], 04/24/2020 13:16:26 04/25/19 21 04/24/2020 iron + total iron- leonie ng capac ity (TIBC ), serum % iron saturation 19 % (20-55 ) low Not Available [facility] [address] [place], [address], 04/24/2020 13:16:26 04/25/19 21 04/24/2020 lipid panel , serum cholesterol, total 126 mg/dL (<200) Not Available [facility] [address] [place], [address], 04/24/2020 13:16:27 04/25/19 21 04/24/2020 lipid panel , serum triglyceride 106 mg/dL (<150) Not Available [facility] [address] [place], [address], 04/24/2020 13:16:27 04/25/19 21 04/24/2020 lipid panel , serum HDL chol 47 mg/dL (>39) Not Available [facility] [address] [place], [address], 04/24/2020 13:16:27 04/25/19 21 04/24/2020 lipid panel , serum LDL cholesterol, calculated 58 mg/dL (0-130 ) Not Available [facility] [address] [place], [address], 04/24/2020 13:16:27 04/25/19 21 04/24/2020 lipid panel , serum non HDL cholesterol (calc) 79 mg/dL (<160) Not Available [facility] [address] [place], [address], 04/24/2020 13:16:27 04/25/19 21 04/24/2020 vitam in B12, serum vitamin B12 1781 pg/mL (232-1 245) high Not Available [facility] [address] [place], [address], 04/24/2020 13:35:29 04/25/19 21 04/24/2020 terrell tin, serum or plasm a ferritin 51 NG/mL (14-28 3) Not Available [facility] [address] [place], [address], 04/24/2020 13:35:30 07/01/19 21 07/04/2020 fecal occul t blood , immun oassa y, stool ifobt NEGATI VE negati ve Not Available [address], [place], [address], 07/04/2020 12:09:02 07/04/19 21 07/03/2020 XR, hip, [...] Readcharanjit nayak Physic bettye: [place] Peralta ms [facility] (Imaging) [address], [place], [address], 07/06/2020 15:25:33 Result Notes None recorded. 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 166972118 Abdulaziz Reyes NP [address] [place], [place] [address] [place], [address], [facility] 6 11:03:24 Type 2 diabetes mellitus 35430537 Completed 10/07/2016 age 46, 2002 Freddie Quick MD [address] [place] [address] [place], [address], [facility] 7 11:48:10 Hypothyr oidism 58618812 Active Mariann Reyes NP [address] [place], [place], [address], [facility] 6 11:03:24 Carotid artery stenosis 36740757 Active Mariann Reyes NP [address] [place], [place] [address], [place], [address], [facility] 5 20:34:02 Vitamin D deficien cy 23666259 Active Mariann Reyes NP [address] [place], [place] [address], [place], [address], [facility] 6 11:03:24 Adhesive capsulit is of shoulder 959439966 Completed 09/05/2015 Removal Reason: resolved Mariann Reyes NP [address] [place], [place] [address], [place], [address], [facility] 6 10:51:17 Benign essentia l hyperten mauro 5603925 Active Mariann Reyes NP [address] [place], [place] [address], [place], [address], [facility] 6 11:03:24 Angina pectoris 030432128 Active Mariann Reyes NP [address] [place], [place] [address], [place], [address], [facility] 6 11:03:24 Kidney disease 53016398 Active Lux Reyes NP [address] [place], [place] [address], [place], [address], [facility] 5 20:50:23 Lumbar radiculo ector 001575138 Active Mariann Reyes NP [address] [place], [place] [address], [place], [address], [facility] 6 11:03:24 Psoriasi s 6251830 Active Mariann Reyes NP [address] [place], [place] [address], [place], [address], [facility] 6 18:27:10 Morbid obesity 451513061 Active Mariann Reyes NP [address] [place], [place] [address], [place], [address], [facility] 6 11:03:24 Multiple complica tions due to type 2 diabetes mellitus Active 2015 Mariann Reyes NP [address] [place] [address] [place], [address], [facility] 6 21:00:03 Mixed hyperlip idemia 622828071 Active 2015 Mariann Reyes NP [address] [place] [address] [place], [address], [facility] 6 21:01:57 Medicati on monitori ng Completed 201610/07/2016 Freddie Quick MD [address] [place] [address], [address], [facility] 7 11:48:19 Problem Notes None recorded. Procedures Surgical History Date Name Laterality Status Provider Name and Address Organization Details Recorded Time 07/25/19 21 Trochanteric Bursa Injection completed Freddie Quick MD [address] [place] [address], [address], [facility] 07/24/2020 11:42:07 07/04/19 21 Trochanteric Bursa Injection completed Freddie Quick MD [address] [place] [address], [address], [facility] 07/03/2020 13:25:42 11/19/19 19 Advanced Care Planning completed Freddie Quick MD [address] [place] [address], [address], [facility] 11/19/2018 17:54:41 02/08/20 18 Nebulizer Tx completed Ira Lee [facility] 02/07/2018 11:47:12 Imaging Results Imaging Date Name Status LastModified by Organiz ation Details LastModified Time 07/03/2020 XR, hip, unilateral completed [facility] ([facility]) [address], [place], [address], 07/06/2020 15:25:33 Procedure Notes None recorded. Medical Equipment None Reported. Allergies Allergen ID Allergen Name Allergen Category Reaction Reaction Severity Criticality Documentation Date Start Date Code Code System Note Provider Name and Address Organization Details Recorded Time 089158 lisinopri l medicatio n Not available Not available Not available 01/27/2015 59556 RxNorm Worse kenn kidne y funct ion Mariann Reyes, [employer] [address] [facility], [place], [address] , [facility] 5 20:42:47 Medications Name Sig Start Date [...] 0 77 /min 95 % 95 % 667764. 75 g 169 mm[Hg] 76 mm[Hg] Cici Reddy [facility] 0 10:09:32 Date Recorded Body height Body mass index (BMI) Body weight Systolic blood pressure Diastolic blood pressure Provider Name and Address Organization Details Last Updated DateTime 06/21/2020 160.02 cm 52.8 kg/m2 312781.5 3 g 160 mm[Hg] 67 mm[Hg] Caroline Mccauley LPN [facility] 1 11:48:22 Date Recorded Systolic blood pressure Diastolic blood pressure Provider Name and Address Organization Details Last Updated DateTime 06/21/2020 116 mm[Hg] 62 mm[Hg] Freddie Quick MD [address] [place] [address], [address], [facility] 06/21/2020 12:28:11 Date Recorded Body height Body mass index (BMI) Body weight Systolic blood pressure Diastolic blood pressure Provider Name and Address Organization Details Last Updated DateTime 07/03/2020 160.02 cm 53.2 kg/m2 332067.5 1 g 136 mm[Hg] 72 mm[Hg] Caroline Mccauley LPN [facility] 1 10:13:01 Date Recorded Body height Body mass index (BMI) Body weight Systolic blood pressure Diastolic blood pressure Provider Name and Address Organization Details Last Updated DateTime 07/24/2020 160.02 cm 53.3 kg/m2 417641 g 160 mm[Hg] 56 mm[Hg] Caroline Mccauley LPN [facility] 1 11:09:40 Social History Question Answer Notes LastModified by Organizat ion Details LastModified Time Tobacco Smoking Status Former Smoker Quit in 2011 ALINE Fortune, [facility] 06/21/2020 11:53:47 What Is Your Level Of Alcohol Consumption? None Information not available 06/12/2014 What Is Your Level Of Caffeine Consumption? Moderate 10/27/17- 2-4 [employer] [place] Information not available 10/27/2017 How Much Tobacco Do You Chew? None [email or web address] Information not available 10/07/2016 What Type Of Diet Are You Following? REGULAR Information not available 07/18/2014 Which Illicit Or Recreational Drugs Have You Used? None Information not available 06/12/2014 Do You Or Have You Ever Used E-cigarettes Or Vape? Never Used Electronic Cigarettes Information not available 11/18/2018 Education 2 Year College [email or web address] Informat ion not available 10/27/2017 What Is Your Occupation? Disabled [email or web address] Information not available 10/27/2017 Are There Any Guns Present In Your Home? No Information not available 07/18/2014 Live Alone Or With Others? With Others [email or web address] Information not available 07/18/2014 Does The Patient Have Difficulty Speaking Montenegrin? No Information not available 06/12/2014 Does The Patient Have Difficulty Reading Montenegrin? No Information not available 06/12/2014 Patient Has Health Care Proxy Signed And In Chart Yes [email or web address] Information not available 11/18/2018 Marital Status Informatio n not available 07/18/2014 Mosquito Repellent Used Routinely No Information not available 07/18/2014 What Was The Date Of Your Most Recent Tobacco Screening? 07/24/2020 [email or web address] Information not available 07/24/2020 How Many Children [...] not available 07/18/2014 General Stress Level Low [email or web address] Information not available 10/27/2017 Do You Use [...] virus, quadrivalent, PF 5 completed Not Available [facility] 03/11/2019 02:19:45 Pneumococcal conjugate PCV 13 5 completed Not Available [facility] 03/11/2019 02:19:45 Influenza, split virus, quadrivalent, PF 6 completed Not Available [facility] 03/11/2019 02:21:04 pneumococcal polysaccharide PPV23 7 completed Not Available [facility] 03/11/2019 02:35:34 Td (adult) 3 completed Freddie Quick MD [address] [place] [address], [address] 10/07/2016 12:07:51 Influenza, split virus, quadrivalent, PF 9 completed Not Available [facility] 03/11/2019 02:24:08 Influenza, split virus, quadrivalent, preservative 8 completed Shannan Burch [facility] 05/17/2018 11:45:44 Influenza, high-dose, quadrivalent, PF 0 completed Ana Mc MA [facility] 12/08/2019 10:10:31 Past Encounters Encounter ID Performer Location Encounter Start Date Encounter Closed Date Diagnosis/Indication Diagnosis SNOMED-CT Code Diagnosis ICD10 Code [id number] Kamryn MORENO, [facility], [address] [place] [address] 06/12/2014 10:14:31 06/14/2014 15:23:52 Benign essential hypertension 3529125 Mixed hyperlipidemia 267 968445 Hypothyroidism 11290056 Type 2 rolly betes mellitus 98632766 Carotid ar arleth stenosis 69424781 Vitamin D deficiency 347 98515 Obesity 009971353 [id number] Sofía Johnson , [facility], [address] [place] [address] 07/18/2014 10:26:42 07/18/2014 12:07:09 Benign essential hypertension 4831441 Mixed hyperlipidemia 267 045904 Angina pectoris 24489803 0 Type 2 rolly betes mellitus 48817575 Kidney disease 95771186 Carotid ar arleth stenosis 81252673 Adult [facility] th examination 421064699 [id number] Mariann Reyes NP , [facility], [address] [place] [address] 09/06/2014 09:10:14 09/06/2014 10:24:12 Type 2 diabetes mellitus 97869439 [id number] JOSH, [facility], [address] [place] [address] 09/19/2014 09:31:09 09/19/2014 10:44:10 Type 2 diabetes mellitus 55108989 Hyperlipidemia 40528089 [id number] MK Warner, [facility], [address] [place] [address] 10/25/2014 09:45:42 10/25/2014 10:39:10 Influenza vaccine needed 7504299303 106 Administra tion of pneumococcal vaccine 63436818 Type 2 rolly betes mellitus 31843143 Benign ess ential hypertension 7603365 Hyperlipidemia 26043165 Active or passive immunization 039052005 Kidney disease 96026695 [id number] MK Warner, [facility], [address] [place] [address] 01/24/2015 09:37:01 01/24/2015 11:11:32 Type 2 diabetes mellitus 05481406 E11.21 E11.42 Kidney disease 45114443 N08 Benign ess ential hypertension 4883153 I10 Hyperlipidemia 95544895 E78.5 Insulin tr eated type 2 diabetes mellitus 211719598 Z79.4 Lumbar radiculopathy 128 242875 M54.16 [id number] MK Warner, [facility], [address] [place] [address] 06/05/2015 09:39:21 06/05/2015 10:56:34 Hyperlipidemia 13376951 E78.5 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 E11.610 Type 2 rolly betes mellitus 77218331 E11.21 E11.42 Hypothyroidism 28945287 E03.9 Benign ess ential hypertension 7348766 I10 Psoriasis 8513554 L40.9 Vitamin D deficiency 347 52597 E55.9 Angina pectoris 92390517 0 I20.9 Lumbar radiculopathy 128 442398 M54.16 Morbid obesity 840164114 E66.01 [id number] MK Warner, [facility], [address] [place] [address] 09/05/2015 09:58:34 09/05/2015 11:42:27 Adult health examination 191654017 Z00.00 Benign ess ential hypertension 8305742 I10 Lumbar radiculopathy 128 532680 M54.16 Angina pectoris 06944540 0 I20.9 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 E11.610 Morbid obesity 877605278 E66.01 Vitamin D deficiency 347 97164 E55.9 Hypothyroidism 76982978 E03.9 Type 2 rolly betes mellitus 87025625 E11.21 E11.42 Hyperlipidemia 95687543 E78.5 Carotid ar arleth stenosis 13417097 I65.29 Psoriasis 9791533 L40.9 Kidney disease 19179758 N08 Greater tr ochanteric pain syndrome 1602224 M70.60 Multiple joint pain 3567 8005 M25.50 [id number] MK Warner, [facility], [address] [place] [address] 12/17/2015 09:30:01 12/17/2015 10:45:44 Benign essential hypertension 3542524 I10 Mixed hyperlipidemia 267 886233 E78.2 Active or passive immunization 166636170 Z23 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 E11.610 Morbid obesity 410058830 E66.01 Multiple complications due to type 2 diabetes mellitus 595349475 E11.8 Hypothyroidism 16415012 E03.9 [id number] MK Warner, [facility], [address] [place] [address] 02/19/2016 11:54:40 02/19/2016 12:47:06 Abscess 325366117 L02.91 [id number] Mariann Reyes NP FP, [facility], [address] [place] [address] 03/17/2016 11:30:42 03/17/2016 12:52:25 Benign essential hypertension 4345554 I10 Multiple complications due to type 2 diabetes mellitus 522190912 E11.8 Medication monitoring 39 5048711 Z51.81 Screening for malignant neoplasm of colon 407646714 Z12.11 Morbid obesity 119986099 E66.01 Hyperlipidemia 28913112 E78.5 Carotid ar arleth stenosis 31991987 I65.29 [id number] Mariann Reyes NP FP, [facility], [address] [place] [address] 04/01/2016 13:16:50 04/01/2016 14:22:09 Bronchitis 24475610 J40 [id number] MK Warner, [facility], [address] [place] [address] 06/04/2016 14:14:52 06/04/2016 15:31:53 Benign essential hypertension 9551643 I10 Mixed hyperlipidemia 267 270094 E78.2 Morbid obesity 070326179 E66.01 Multiple complications due to type 2 diabetes mellitus 498485603 E11.8 Recurrent depression 191 216609 F33.9 Active or passive immunization 630184575 Z23 [id number] MK Warner, [facility], [address] [place] [address] 08/20/2016 10:05:23 08/20/2016 11:08:41 Pre-surgery evaluation 848119754 Z01.818 Multiple complications due to type 2 diabetes mellitus 468651939 E11.8 [id number] MD JOSH Russo, [facility], [address] [place] [address] 10/07/2016 11:17:11 10/07/2016 12:37:17 Adult health examination 387822573 Z00.00 Benign ess ential hypertension 9218952 I10 Multiple complications due to type 2 diabetes mellitus 458605058 E11.8 Morbid obesity 502316781 E66.01 Vitamin D deficiency 347 07174 E55.9 Hypothyroidism 61274581 E03.9 Hyperlipidemia 30230492 E78.5 Carotid ar arleth stenosis 43070245 I65.29 Psoriasis 9497263 L40.9 [id number] Chanda Dias MD , [facility], [address] [place] [address] 05/06/2017 13:34:45 05/06/2017 14:59:00 Benign essential hypertension 3722545 I10 Morbid obesity 025470951 E66.01 Herpes zoster 0545231 B0 2.9 Lumbar radiculopathy 128 097694 M54.16 [id number] Freddie Quick MD , [facility], [address] [place] [address] 10/27/2017 11:24:56 10/27/2017 12:20:18 Adult health examination 374190609 Z00.00 Depression screening 171 820426 Z13.89 Benign ess ential hypertension 9356031 I10 Multiple complications due to type 2 diabetes mellitus 718288497 E11.8 Morbid obesity 433929448 E66.01 Vitamin D deficiency 347 00111 E55.9 Hypothyroidism 07857272 E03.9 Hyperlipidemia 68744787 E78.5 Carotid ar arleth stenosis 27299270 I65.29 Psoriasis 5491941 L40.9 Chronic ki dney disease 905882686 N18.9 [id number] Freddie Quick MD , [facility], [address] [place] [address] 02/07/2018 10:19:41 02/08/2018 12:34:20 Dyspnea on exertion 55775962 R06.09 Hypoxia 291362905 R09.02 Chest pain 72281542 R07. 9 [id number] Freddie Quick MD , [facility], [address] [place] [address] 05/17/2018 11:35:27 05/17/2018 12:28:00 Benign essential hypertension 7449706 I10 Multiple complications due to type 2 diabetes mellitus 104049056 E11.8 Morbid obesity 660853448 E66.01 Vitamin D deficiency 347 38681 E55.9 Hypothyroidism 54453986 E03.9 Hyperlipidemia 97437886 E78.5 Carotid ar arleth stenosis 83021662 I65.29 Psoriasis 0623089 L40.9 Chronic ki dney disease 884680433 N18.9 [id number] Freddie Quick MD , [facility], [address] [place] [address] 11/18/2018 10:37:47 11/18/2018 11:48:06 Adult health examination 168185747 Z00.00 Depression screening 171 205778 Z13.89 Active or passive immunization 901393374 Z23 Benign ess ential hypertension 7374332 I10 Multiple complications due to type 2 diabetes mellitus 475728537 E11.8 Morbid obesity 515812206 E66.01 Vitamin D deficiency 347 10415 E55.9 Hypothyroidism 41119994 E03.9 Hyperlipidemia 77445667 E78.5 Carotid ar arleth stenosis 53823373 I65.29 Psoriasis 1576531 L40.9 Chronic ki dney disease 964920331 N18.9 Screening for malignant neoplasm of colon 151908243 Z12.11 Constipation 73992546 K5 9.00 Low back pain 353423672 M54.5 [id number] Freddie Quick MD , [facility], [address] [place] [address] 12/08/2019 09:57:53 12/11/2019 11:31:41 Hyperlipidemia 68936032 E78.5 Multiple complications due to type 2 diabetes mellitus 752623045 E11.8 Benign ess ential hypertension 0858084 I10 Chronic ki dney disease 251376274 N18.9 Hypothyroidism 16281156 E03.9 Carotid ar arleth stenosis 69313274 I65.29 Psoriasis 7328478 L40.9 Vitamin D deficiency 347 02798 E55.9 Morbid obesity 862946307 E66.01 Screening for malignant neoplasm of colon 825727554 Z12.11 Constipation 69438122 K5 9.00 Anemia 669707479 D64.9 [id number] Ana Mc MA , [facility], [address] [place] [address] 12/08/2019 09:59:45 12/11/2019 10:11:59 Active or passive immunization 739628894 Z23 [id number] Freddie Quick MD , [facility], [address] [place] [address] 06/21/2020 11:46:12 06/24/2020 14:55:36 Hyperlipidemia 21076880 E78.5 Multiple complications due to type 2 diabetes mellitus 809871151 E11.8 Benign ess ential hypertension 0583802 I10 Chronic ki dney disease 398421987 N18.9 Hypothyroidism 93839914 E03.9 Carotid ar arleth stenosis 12209662 I65.29 Psoriasis 8431653 L40.9 Vitamin D deficiency 347 68758 E55.9 Morbid obesity 062943774 E66.01 Screening for malignant neoplasm of colon [id number] Z12.11 Constipation [id number] K5 9.00 Hip pain [id number] M25.55 [id number] Freddie Quick MD , [facility], OFFICE [address] [place] [address] 07/03/2020 09:16:45 07/03/2020 10:37:27 Trochanteric bursitis of right hip [id number] 44621 M70.61 Trochanter ic bursitis of left hip [id number] M70.62 [id number] Freddie Quick MD , [facility], [address]ICE [address] [place] [address] 07/24/2020 11:00:32 07/24/2020 11:39:05 Trochanteric bursitis of left hip [id number] 44003 M70.62 Trochanter ic bursitis of right hip [id number] M70.61 Health Concerns Section Related Observation LastModified by Organization Detai ls LastModified Time None Recorded Concern Status LastModified by Organization Details LastModified Time None Recorded Advance Directives Directive None Recorded Payers Encounter Date Sequence Insurance Name Policy Number Policy Bell Covered Member ID Bell Member ID Guarantor Name 12/08/2019 2 [place] [facility] Kiara Pollack [id number] Kiara Pollack 12/08/2019 1 BLUE BENEFIT ADMIN[employer]RAT[employer] OF [facility] (EPO) [id number] Jovannylolyd Pollack [id number] Kiara Pollack 12/08/2019 2 [place] [facility] Kiara Pollack [id number] Kiara Pollack 12/08/2019 1 [employer]EF[employer] ADMIN[employer] OF [facility] (EPO) [id number] Jovannymartha Pollack [id number] Kiara Pollack 06/21/2020 2 [place] [facility] Kiara Pollack [id number] Kiara Pollack 06/21/2020 1 BLUE BENEFIT ADMINISTRATORS OF [facility] SARAH[place] (EPO) [id number] Jovannymartha Pollack [id number] Kiara Pollack 07/03/2020 2 [place] [facility] Kiara Pollack [id number] Kiara Pollack 07/03/2020 1 [employer] [place] Balbir SMITH-[place] (EPO) [id number] Jovannyclint Pollack [id number] Kiara Pollack 07/24/2020 2 [place] [facility] Kiara Arellanoi [id number] Kiara Pollack 07/24/2020 1 [employer] [place] Balbir SMITH-[place] (EPO) [id number] Jovannymartha Pollack [id number] Kiara Pollack Notes Date Note Type Note [...] Quite frustrated with her weight. Previously saw liability claims manager, Riley Siu RD. Discussed labs. Discussed health care proxy and to share with family her thoughts and plans. Recent labs did not include Lipid panel, was sent to [facility] per patient request. Recently found [...] Influenza vaccine administered today. Freddie Quick MD [address] [place] [address], [phone], [facility] 12/08/2019 13:29:31 1 text/html VMG DiabetesReported bypatient.Review finger sticks:[id number] usually <100; 30 day average 80-115 Duration:chronic [...] Quite frustrated with her weight. Recently saw liability claims manager, Riley Siu RD. Discussed labs. Discussed health care proxy and to share with family her thoughts and plans. Refuses COVID-19 vaccinations. States bilateral lateral hip pain. Suspects bursitis. No radiating pain. No swelling. Freddie Quick MD [address] [place], [address], [facility] 06/21/2020 20:43:59 1 text/html Patient with bilateral lateral hip pain in the greater trochanter areas. No trauma or fall. Underlying severe obesity. Chronic since 2012. Previously evaluated by outside Sports Medicine and was diagnosed with trochanteric bursitis. Never had injections. Underlying diabetes. Increased pain with movements, prolonged standing and adduction. Freddie Quick MD [address] [place], [address], [facility] 07/03/2020 13:29:44 1 text/html Present for right [...] in her pain. Freddie Quick MD [address] [place], [address], [facility] 07/24/2020 11:44:18 OBGyn Episode No OBEpisode recorded.
--- OUTSIDE RECORDS SUMMARY | 2024-02-18 16:18 | XMS_ITS | Data Portability ---
Author Organization [place] [facility] Address [address] [place] [phone] Care Team Providers Care Chemistry Research Assistant Name Role Phone DIANE MOLINA Primary Care Provider [phone] Assessment Encounter Date Assessment Date Assessment LastModified by Organization Details LastModified Time 02/09/2022 02/09/2022 Overview/History : 66 YO F new to provider and new to She is being seen today in the comfort of her own home She is being seen today for coughing wheezing URI sxs Cough, stuffy.runny nose, fatigue, mild intermittent headache, wheezing d/t her asthma She has been sick since Wednesday, continued over the weekend. She has trialled OTC cough medicine and this has been mildy effective. She has hx of asthma and has some wheezing. She has used her albuterol inhaler w/ very good effect. Her sx is mild-mod at this time. She has needed steroids in the past for her asthma sxs. Otherwise she denies any known fever, chills,and pain, NVD, weakness, resp distress, substernal chest pain although she reports pleuritic chest pain when she coughs that is diffuse and reproducible, no numbness/tingling, cyanosis.pallor, arm pain/jawpain/epiga stric pain. No other reported sxs or concerns today. Exam: Vitals: Low grade temp at 99.4 F, mild HTN w/o sxs, other VSS Constitutional: 66 yo Well developed, well nourished, pleasant patient in no apparent distress.Upright comfortable and not toxic appearing Eyes: PERRL at 4mm, EOM's intact, No swelling, no discharge, sclera / conjunctiva clear ENT: no lymphadenopathy and no sinus tenderness, no nasal discharge, no erythema/ exudate noted in oropharynx, uvula midline, moist mucous membranes CV: RRR, no rubs/ murmurs/ gallops heard, 2+ radial pulses bilaterally, no edema and no calf tenderness BL, 2+ DP/ PT pulses bilaterally Chest: Tenderness to palpation throughout, no crepitus, equal chest rise BL Pulm: breath sounds w/ BL diffuse wheezing that full clear w/ use of her albuterol inhaler the her lungs are CTAB. Speaks in full sentences, no increased work of breathing. GI: Soft, non-tender to palpation. No masses, normal bowel sounds. No gurading and no distension. MS: Self ambulatory patient, moves all limbs without deficit, no evidence of trauma Neuro: No focal deficits, A&O x4, CN? s II-XII grossly normal Skin: No rash, no cyanosis/pallor, cap refill intact, visible skin appears cdi Psych: Calm, cooperative, non-manic. Pleasant. DDx considered, but not limited to: COVID - rapid neg Flu - possible but no body aches, doubtful, no need to test as OOW for antiviral CAP - doubtful, lungs CTAB after inhaler, she does have low grade temp and cough that is congested at time, will get XR given risk factors to fully r/o Asthma Exacerbation - ML cause of sxs at this time, she has BL wheezing that inhaler clears up, inhaler makes her feel better, she has hx of asthma w exacerbations needing steroids in past. Cardiac - pain d/t coughing and x4 days, nothing substernal and no radiation of her pain, doubt any cardiac cause at this time based on HPI and exam findings PE - considered d/t pleuritic pain but her SOB is relieves almost fully w/ inhaler, no chest pain at rest, no tachycardia, no s/s of DVT on exam, unlikley Costal Condtitis - ML cause of her diffuse rib pain caused by coughing Work up/Results: Rapid COVID neg CXR pending to eval for pneumonia, mobile XR ordered through [facility], gave patient number so they can ensure XR gets sched to come out and eval Plan/Discussion: Asthma Exacerbation: -ML cause of SOB at this time she is wheezy but inhaler fully clears this up -Cont albuterol inhaler q6hr sched until sxs improve -She has needed steroids in past, will tx w/ short taper, first dose given on scene and toleratedwell -She panda shave hx of DM and reports she only checks her sugars sporadically, she check while we are on scene and it is 168 postprandial which is not bad. Educated to check closely while on prednisone as this can elevate her sugars -Believe benefit exceeds risk at this time given she has c/o of SOB and hx of needing steroids to get over asthma exacerbations in past, do not want her breathing to get worse -Discussed s/e of med and she consents to tx, discuss w/ pharmacy for further drug questions -Benzonatate given for cough -Cont OTC meds that are effective as well, avoid ibuprofen given hx CKD -She will f/u closely w/ PCP -ED precautions for fever > 102 F, abd pain, NVD< weakness, cyanosis, pallor, constant chest pain respiratory distress Costal Condiritis: -Pt reports pain d/t coughing -Reproducible tenderness -Suspect costal condirits -Discussed avoiding NSAIDs d/t KFTs but if she is able to get cough under control this will help w/ pain, addn she may cont Tylenol (max 3000 mg/day) and can even trial topical lidocaine to help w/ pain at this time. She requests cough syrup w/ codeine to help w/ sxs and I alert her she should try the above medicines before resorting to narcotics even low dose ones given their s/e and addictive potential. She agrees. [employer] is a narcotic free company -She will f.u if anything changes and she if above does not reieve the pain -ED precautions discussed for worsening pain, SOB, substernal chest pain, pain that radiates into her abdomen, jaw, and/or arm Pt and is on agreement and verbalizes understanding with the above plans at this time. Pt and has no other questions or concerns at this time. All questiosn are answered to the best of my ability. Pt and thanks us for our visit today. leah Not available 02/10/2022 09:52:38 Plan of Treatment Reminders Order Date Submit Date Provider Last Modified By Organization Details Last Modified Time Details Appointments None recorded. Lab None recorded. Referral None recorded. Procedures None recorded. Surgeries None recorded. Imaging XR, chest, 2 view - patient has wheezing and cough x4 days, sometimes w/ some light sputum. She has gotten pneumonia in past so would like to rule this out. Thank you, no focal consolidati ons heard on lung auscultatio n. 2021 [facility] [address], [place], [address], 13:41:44 Medication Orders prednisone 20 mg tablet 2021 [id number], [address] [place], [place], [id number], 16:25:44 prednisone 10 mg tablet 2021 [facility] #[id number], [address] [place] [address], [id number], 16:26:37 benzonatate 100 mg capsule 2021 [facility] #[id number], [address] [place], [place], [phone], 03:37:18 Patient TargetsNo targets recorded. Patient InstructionsNo instructions recorded. Reason for Referral None Reported. Results Created Date Observation Date Name Description Value Unit Range Abnormal Flag Note LastModifiedBy Organization Detail LastModifiedTime 02/11/20 22 02/10/2022 XR, chest , 2 view XRAY CHEST 2 VIEW FINDIN GS: Lungs: No focal consol idatio n. Pulmon verónica vascul ature is within normal limits . Promin ent lung markin gs. Pleura : No pneumo thorax . No pleura l effusi on. Heart and Medias tinum: The cardio medias tinal silhou ette is enlarg ed in size and contou r. Osseou s struct ures: Visual ized osseou s struct ures are stable . No radiop aque foreig n body. CONCLU MAURO: No acute cardio pulmon verónica proces s. ELECTR ONICAL LY SIGNED BY ENRIQUE ENAMORADO M.D. 2021 1:31:4 0 PM EST. XRAY CHEST 2 VIEW Result s: Lungs: No focal consol idatio n. Pulmon verónica vascul ature is within normal limits . Promin ent lung markin gs. Pleura : No pneumo thorax . No pleura l effusi on. Heart and Medias tinum: The cardio medias tinal silhou ette is enlarg ed in size and contou r. Osseou s struct ures: Visual ized osseou s struct ures are stable . No radiop aque foreig n body. Conclu mauro: No acute cardio pulmon verónica proces s. Electr onical ly signed by ENRIQUE ENAMORADO M.D. 2021 1:31:4 0 PM EST. [email or web address] [address] [address], [place], [address], 02/10/2022 14:11:49 Result Notes None recorded. Procedures Surgical History Date Name Laterality Status Provider Name and Address Organization Details Recorded Time 02/10/20 22 Medication Review completed LAWRENCE Bernard [address], [place], [address], [place] [facility] 02/10/2022 08:54:18 section completed LAWRENCE Bernard [address], [place], [address], [place] [facility] 02/09/2022 16:11:28 Imaging Results Imaging Date Name Status LastModified by Organiz ation Details LastModified Time 02/10/2022 XR, chest, 2 view completed [email or web address] [address] [facility] [address], [place], [address], 02/10/2022 14:11:49 Procedure Notes None recorded. Medical Equipment None Reported. Allergies Allergen ID Allergen Name Allergen Category Reaction Reaction Severity Criticality Documentation Date Start Date Code Code System Note Provider Name and Address Organization Details Recorded Time 865128 Lipitor medicatio n Not available Not available Not available 02/09/2022 51905 5 [facility] LAWRENCE Hassan [address], [place], [address], [place] [facility] 16:07:50 349185 lisinopri l medicatio n Not available Not available Not available 02/09/2022 38990 RxNorm Candelario ramos LAWRENCE Ashraf [address], [place], [address], [place] [facility] 2 16:08:02 Medications Name Sig Start Date Stop Date Status Note LastModified by Organization Details LastModified Time furosemide 40 mg tablet TAKE 1 TABLET BY MOUTH EVERY DAY active Not Available Not Available No t Available pioglitazon e 15 mg tablet TAKE 1 TABLET BY MOUTH EVERY DAY DIRECTED active Not Available Not Available No t Available carvedilol 6.25 mg tablet TAKE 1 TABLET BY MOUTH TWICE DAILY active Not Available Not Available No t Available prednisone 10 mg tablet Take 4 10 mg tablets PO on scene once by mouth at 426 pm 2021 active Not Available Not Available Not Avai lable glipizide 10 mg tablet TAKE 1 TABLET BY MOUTH TWICE DAILY active Not Available Not Available No t Available prednisone 20 mg tablet Take 2 tablets on 02/10Take 1 tablet on 02/11, 02/12, 02/13 active Not Available Not Available No t Available isosorbide mononitrate ER 30 mg tablet,exte nded release 24 hr TAKE 1 TABLET BY MOUTH DAILY active Not Available Not Available No t Available dexamethaso ne 6 mg tablet TAKE 1 TABLET BY MOUTH DAILY FOR 10 DAYS 02/09 completed Not Available Not Available Not Available levothyroxi ne 75 mcg tablet TAKE 1 TABLET BY MOUTH EVERY DAY active Not Available Not Available No t Available benzonatate 100 mg capsule TAKE 1 CAPSULE BY MOUTH THREE TIMES DAILY FOR 10 DAYS DIRECTED active Not Available Not Available No t Available aspirin 81 mg chewable tablet CHEW AND SWALLOW 1 TABLET BY MOUTH ONCE DAILY active Not Available Not Available No t Available albuterol sulfate HFA 90 mcg/actuati on aerosol inhaler INHALE 2 PUFFS BY MOUTH EVERY 4 TO 6 HOURS NEEDED FOR SHORTNESS OF BREATH OR WHEEZING active Not Available Not Available No t Available rosuvastati n 40 mg tablet TAKE 1 TABLET BY MOUTH EVERY DAY active Not Available Not Available No t Available Lantus Solostar U-100 Insulin 100 unit/mL (3 mL) subcutaneou s pen INJECT 22 UNITS SUBCUTANE OUSLY ONCE DAILY active Not Available Not Available No t Available OneTouch Verio test strips USE 1 STRIP TO CHECK GLUCOSE THREE TIMES DAILY 02/09 completed Not Available Not Available Not Available Farxiga 5 mg tablet TAKE 1 TABLET BY MOUTH EVERY DAY active Not Available Not Available No t Available BD Maria A 2nd Gen Pen Needle 32 gauge x 5/32 INJECT 1 PEN UNDER THE SKIN ONCE DAILY DIRECTED 02/09 completed Not Available Not Available Not Available FreeStyle Tavares 2 Sensor kit USE DIRECTED 02/09 completed Not Available Not Available Not Available Vitals Date Recorded Oxygen saturation Oxygen saturation in Arterial blood by Pulse oximetry Respiratory rate Heart rate Body temperature Systolic blood pressure Diastolic blood pressure Provider Name and Address Organization Details Last Updated DateTime 95 % 95 % 20 /min 87 /min 99.4 [degF] 142 mm[Hg] 78 mm[Hg] Not Available [facility] 16:14:46 Social History Question Answer Notes LastModified by Organizat ion Details LastModified Time Tobacco Smoking Status Never Smoker LAWRENCE Bernard [address] [place], [address], [place] [facility] 02/09/2022 16:11:16 What Is Your Level Of Alcohol Consumption? None Information not available 02/09/2022 Do You Use Any Illicit Or Recreational Drugs? No Information not available 02/09/2022 Sex: Unknown Functional Status None recorded. Mental Status None recorded. Family History Nothing Reported. Medical History Condition Response Diabetes Y Coronary Artery Disease N CHF N Parkinson's Disease N Cancer N Dementia N Stroke N COPD N Depression N Hypothyroidism Y Asthma Y High Cholesterol Y Rheumatoid Arthritis N Pulmonary Embolism N Hypertension Y A-fib N Osteoporosis N Kidney Disease Y Gynecological HistoryNo gynecological history recorded. Obstetrics History GPAL:G 0 P 0 0 0 0 Past Encounters Encounter ID Performer Location Encounter Start Date Encounter Closed Date Diagnosis/Indication Diagnosis SNOMED-CT Code Diagnosis ICD10 Code [id number] LAWRENCE Braga [facility] [address] [place] [address] 02/09/2022 15:40:17 02/10/2022 11:50:32 Exacerbation of intermittent asthma [id number] J45.21 Costal chondritis 576537 04 M94.0 Health Concerns Section Related Observation LastModified by Organization Detai ls LastModified Time None Recorded Concern Status LastModified by Organization Details LastModified Time None Recorded Advance Directives Directive None Recorded Payers Encounter Date Sequence Insurance Name Policy Number Policy Bell Covered Member ID Bell Member ID Guarantor Name 02/09/2022 1 [employer]UE [employer] [id number] Kiara Pollack [id number] Kiara Pollakc Notes Date Note Type Note Provider Name and Address Organization Details Recorded Time 02/09/2022 text/html 66 YO F new to provider and new to DHShe is being seen today in the comfort of her own homeShe is being seen today for coughing wheezing URI sxsCough, stuffy.runny nose, fatigue, mild intermittent headache, wheezing d/t her asthmaShe has been sick since Wednesday, continued over the weekend. She has trialled OTC cough medicine and this has been mildy effective. She has hx of asthma and has some wheezing. She has used her albuterol inhaler w/ very good effect.Her sx is mild-mod at this time.She has needed steroids in the past for her asthma sxs.Otherwise she denies any known fever, chills,and pain, NVD, weakness, resp distress, substernal chest pain although she reports pleuritic chest pain when she coughs that is diffuse and reproducible, no numbness/tingling , cyanosis.pallor, arm pain/jawpain/epig astric pain. No other reported sxs or concerns today. LAWRENCE Bernard [address], [place], [address], [place] [facility] 02/10/2022 09:52:56 OBGyn Episode No OBEpisode recorded.
== END 2024-02-18 16:17 | disposition home or self-care (01) ==
LOC: HO.CT 16:16
PROVIDERS: PCP Nurse Practitioner Family; Visit Provider Nurse Practitioner Family
DX: R05.3 Chronic cough (principal); Z87.891 Personal history of nicotine dependence
CPT/HCPCS: 71250

== ENCOUNTER → 2024-02-18 16:20 | Outpatient (BNV) | payer OTHER, MEDICAID, SELFPAY | PROVIDERS: PCP Nurse Practitioner Family; Visit Provider Radiology Diagnostic Radiology | DX: R05.3 Chronic cough (principal); Z87.891 Personal history of nicotine dependence | CPT/HCPCS: 71250 ==

== ENCOUNTER 2024-05-22 13:12 | Outpatient (AMB) | payer OTHER, MEDICAID, SELFPAY ==
[2024-05-22 13:12] VITALS: BP 118/74; PULSE 76; O2SAT 95
--- NOTE | 2024-05-22 13:12 | A.OFFPC_ITS ---
Vital Signs 05/22/24 13:12 Height 5 ft 3 in BMI Reason not done Patient refused/unable BP 118/74 Blood Pressure Location Lt brachial Position Sitting Pulse 76 Pulse Source Pulse Oximeter Pulse Oximetry (%) 95 Intake Visit Reasons: rehab discharge f/up Intake Note: pt is here for 2 mon f/up Food Technology Teacher Required: No Accompanied by: Spouse Allergies lisinopril [LISINOPRIL] Allergy (Unknown, Verified 05/22/24 13:12) KIDNEY FAILURE cephalexin Adverse Reaction (Mild, Verified 05/22/24 13:12) hives sulfamethoxazole [From Sulfamethoxazole-Trimethoprim] Adverse Reaction (Mild, Verified 05/22/24 13:12) Hives trimethoprim [From Sulfamethoxazole-Trimethoprim] Adverse Reaction (Mild, Verified 05/22/24 13:12) Hives Tobacco use date assessed: 05/22/24 Fall risk assessment: No Falls in past year Last assessed Fall Risk: 05/22/24 Dental Screening Dental Screen Date: 05/22/24 Did you have a dental visit in the last 12 months?: Yes Did you have a dental problem in the last 6 months where you did not have access to dental care?: No Was dental information given to patient?: Patient has dentist HPI rehab discharge f/up HPI Details Chief Complaint Hospital discharge follow-up due to acute heart failure and subsequent care adjustments. History of Present Illness The patient is a 69-year-old female presenting with hospital discharge follow-up due to acute heart failure. Her hospital admission was necessitated by an acute exacerbation of chronic congestive heart failure, managed by increasing her beta-peter dosage. Post-discharge, the patient completed a course of rehabilitation and has since required continuous oxygen supplementation at home. She utilizes 1-2 liters of oxygen and reports stable oxygen saturation levels monitored by her own pulse oximeter. She has been engaged with her established journeyman machinist and a newly assigned cosmetic manager at [facility] as part of her cardiovascular and pulmonary care plan. Recently initiated on dialysis, she undergoes sessions three times weekly and has a dialysis port located in the right upper chest which is free of infection. Discomfort during dialysis sessions, attributed to the bed discomfort at her current center, is a significant concern. She feels frustrated by her dialysis regimen but otherwise reports general well-being in managing her chronic health conditions. Social History - No specific social determinants of hea lth were discussed in the conversation. Health Maintenance Review of Systems - Respiratory: Denies shortness of breat h. - Gastrointestinal: Denies nausea or vom iting. - Cardiovascular: Denies chest pain. - Neurological: Denies dizziness, headac hes. Physical Exam General: Cooperative, healthy appearing, comfortable, no acute distress and well developed, morbidly obese Orientation: Patient oriented x3 Limitations: No limitations Head: Normal to inspection Ears: Hearing grossly normal bilaterally Nose: Normal external nose present Face and sinus: Normal facial exam Eyes: Appearance normal, both eyes and all related structures Neck: Normal visual inspection and Yes full ROM Respiratory: Normal respiratory effort and able to speak in complete sentences. Clear to auscultation bilaterally Cardiovascular: Regular rate and rhythm. Normal S1 and S2, systolic murmur noted GI: Normal to inspection. Soft to palpation and nontender Skin: No rashes or lesions noted. Port insertion site on right upper chest looks intact, clean, dry, and intact with no signs of infection, erythema, or ecchymosis Neuro: Patient oriented x3 Extremities: +1 non-pitting edema in lower extremities, otherwise normal to inspection Results Plan Continuing her post-discharge care, the patient will adhere to a higher dose of beta-blockers as part of heart failure management. Oxygen therapy will be maintained at home with pulmonary and cardiovascular follow-up care under her respective specialists. Regarding her dialysis routine, considering her discomfort with the current center, efforts will be made to evaluate and facilitate her transfer to [facility] facility for better support. We will maintain an ongoing review of her dialysis port to prevent infections. Regular appointments with her journeyman machinist and table inspector will continue to ensure optimal management of her heart and kidney conditions. Discussion Notes I discussed with the patient her current management plan for chronic congestive heart failure and the recent acute exacerbation. We reviewed her adjusted beta- peter therapy and the importance of continuous oxygen therapy. I advised her on anticipated follow-ups with her [facility] cosmetic manager and journeyman machinist to manage her heart condition effectively. We addressed her dialysis-related discomfort, agreeing to explore her transfer to [facility] for better accommodations. I explained the rationale behind her current treatment strategy, reassuring her about the diligent monitoring of her conditions and the need for regular specialist consultations. I encouraged her to remain proactive in reporting any symptoms that could suggest complications requiring immediate medical attention. Patient Instructions - Continue using oxygen therapy as presc ribed and monitor oxygen saturation levels. - Follow up with journeyman machinist and pulmon ologist at [facility] as directed. - Attend dialysis appointments as schedu led and report any significant discomfort or complications. - Maintain care for the dialysis port, e nsuring it remains clean and intact. - Notify healthcare providers of any new symptoms such as increased shortness of breath, chest pain, or dizziness. - A transfer to [facility] for improved comfort is being pursued. [facility] Medical History Diabetes Lower extremity weakness Surgical History No pertinent past surgical history Social History Housing: House Patient Tobacco Use Status: Former Tobacco user e-Cigarette/Vaping Use: Never Used Second Hand Smoke Exposure: No Current occupational status: retired Cognitive needs: No Hearing needs: No Vision needs: No Questionnaire PHQ-9 Over the last 2 weeks, how often have you been bothered by any of the following problems? 87688 - PHQ-9 Billing: Patient declined-do not bill Source: Developed by Drs. Cornel Riggs, Carol Sullivan, Turner Sinha and colleagues, with an educational thom from [employer]. Thrive Questionnaire Date Thrive assessed: 05/22/24 I am a: Patient What is your living situation today?: I have a steady place to live Within the past 12 months, did the food you bought not last and you didn't have the money to get more?: Never true Within the past 12 months, did you worry whether your food would run out before you got money to buy more?: Never true Do you have trouble paying for medicines?: No Do you have trouble getting transportation to medical appointments?: No Do you have trouble paying your heating and electricity bill?: No Do you have trouble taking care of your child, family member or friend?: No Do you have trouble with day-to-day activities such as bathing, preparing meals, shopping, managing finances, etc.?: No Are you currently unemployed and looking for a job?: No Are you interested in more education?: No THRIVE Score: 0 AUDIT C Alcohol Use Questionnaire (AUDIT-C) 1. How often do you have a drink containing alcohol?: Never 3. How often do you have six or more drinks on one occasion?: Never Total Score: 0 Score Reviewed/Action Taken: Yes PRIYA-7 AMB Questionnaire PRIYA-7 Date PRIYA - 7 assessed: 05/22/24 Feeling nervous, anxious, or on edge: 1 = Several days Not being able to stop or control worryin = Not at all Worrying too much about different things: 0 = Not at all Trouble relaxin = Not at all Being so restless that it is hard to sit still: 0 = Not at all Becoming easily annoyed or irritable: 0 = Not at all Feeling afraid as if something awful might happen: 0 = Not at all Total PRIYA-7 score (0-4 normal; 5-9 mild; 10-14 moderate; 15-21 severe): 1 Source: Developed by Drs. Cornel Riggs, Carol Sullivan, Turner Sinha and colleagues, with an educational thom from [employer]. PRIYA-7 Assessment Billing PRIYA-7 Assessment Tool: PRIYA-7 Assessment 00514 Physical exam (Primary Care) Vital Signs: Last Vital Signs Pulse 76 05/22/24 13:12 BP 118/74 05/22/24 13:12 Pulse Ox 95 05/22/24 13:12 Tobacco/Smoking Status: Tobacco use Status Tobacco use date assessed 05/22/24 05/22/24 13:14 Patient Tobacco Use Status Former Tobacco user 05/22/24 13:14 e-Cigarette/Vaping Use Never Used 05/22/24 13:14 Thrive Assessment: Date of Thrive Assessment Date Thrive assessed 05/22/24 05/22/24 13:14 Coding Level of Care Code Est Pt Level 4 (14196) Diagnoses CKD (chronic kidney disease) stage 5, GFR less than 15 ml/min N18.5 Acute on chronic heart failure I50.9 Dialysis patient Z99.2 Additional Codes PRIYA-7 Assessment Billing - PRIYA-7 Assessment Tool: PRIYA-7 Assessment 17102 ([id number]) Assessment & Plan Assessment & Plan (1) CKD (chronic kidney disease) stage 5, GFR less than 15 ml/min: Code(s): N18.5 - Chronic kidney disease, stage 5 Category: Medical (2) Acute on chronic heart failure: Code(s): I50.9 - Heart failure, unspecified Category: Medical (3) Dialysis patient: Code(s): Z99.2 - Dependence on renal dialysis Category: Medical Plan . Orders: Orders TSH reflex Free T4 Today I50.9 - Heart failure, unspecified, N18.5 - Chronic kidney disease, stage 5, Z99.2 - Dependence on renal dialysis Complete Blood Count Auto Diff Today I50.9 - Heart failure, unspecified, N18.5 - Chronic kidney disease, stage 5, Z99.2 - Dependence on renal dialysis Comprehensive [place]. Panel Fast Today I50.9 - Heart failure, unspecified, N18.5 - Chronic kidney disease, stage 5, Z99.2 - Dependence on renal dialysis UA CC w/rflx Micro + Cult Today I50.9 - Heart failure, unspecified, N18.5 - Chronic kidney disease, stage 5, Z99.2 - Dependence on renal dialysis Lipid Panel Today I50.9 - Heart failure, unspecified, N18.5 - Chronic kidney disease, stage 5, Z99.2 - Dependence on renal dialysis B Type Natriuretic Peptide Today I50.9 - Heart failure, unspecified, N18.5 - Chronic kidney disease, stage 5, Z99.2 - Dependence on renal dialysis Magnesium Today I50.9 - Heart failure, unspecified, N18.5 - Chronic kidney disease, stage 5, Z99.2 - Dependence on renal dialysis
--- OUTSIDE RECORDS SUMMARY | 2024-05-22 14:54 | XMS_ITS | Encounter Summary ---
Author Organization [facility] Address [id number] [place] [id number] Care Team Providers Care Director Clinical Research Name Role Phone Dana Brennan MD Primary Care Provider + Encounter Details Date Type Department Care Team (Late st Contact Info) Description 05/13/2024 Lab Requisition [facility] - Main Lab [address] [facility] [place] [address] Dana Brennan MD [address] [id number] Acute kidney failure, unspecified (CMS/HCC); Chronic kidney disease, stage 4 (severe) (CMS/HCC); Hypothyroidism, unspecified; Type 2 diabetes mellitus without complications (CMS/HCC); Hyperlipidemia, unspecified Social History Tobacco Use Types Packs/Day Years Used Date Smoking Tobacco: Never Assessed Comments Unknown Sex and Gender Information Value Date Recorded Sex Assigned at Not on file Legal Sex Female 7:16 AM EST Gender Identity Not on file Sexual Orientation Not on file documented as of this encounter Plan of Treatment Not on file documented as of this encounter Visit Diagnoses Diagnosis Acute kidney failure, unspecified (CMS/HCC) Acute kidney failure, unspecified Chronic kidney disease, stage 4 (severe) (CMS/HCC) Hypothyroidism, unspecified Type 2 diabetes mellitus without complications Hyperlipidemia, unspecified documented in this encounter Care Teams Director Clinical Research Relationship Specialty Start Date End Date Dana Brennan MD [address] [place] [address] PCP - General Family Medicine 04/27/24 documented as of this encounter
--- OUTSIDE RECORDS SUMMARY | 2024-05-22 14:54 | XMS_ITS | Continuity of Care Document ---
Author Organization [facility] [address] [facility] [facility] [address] [place] [address] Phone [phone] Care Team Providers Care Executive Consultant Name Role Phone Gómez Peoples Care Team Information Line Mover [phone] Problems Active Problems Provider Date Type 2 [...] SIG Qnty Indications Order ing Provider Date Tjkyoewva23qc Tablets 2 tablets by mouth every day 90tabs Danny Shultz M.D. 02/07/2024 Mounjaro2.5mg/0.5ML Solution Auto-Inject inject 0.5 milliliters weekly 2ml Danny Shultz M.D. 01/26/2024 BD Pen Needle/Maria A 2ND Gen/32G X 4mm32G X 4 mm Misc 1 pen needle to insulin pen once a day DX:E11.8 100units E11.8 Danny Shultz M.D. 10/27/2023 Nkvjvvqew25ez Tablets Take 1 Tablet By Mouth Twice Daily 180tabs Danny Shultz M.D. 11/26/2021 Levothyroxine Xuqgxa76jrq Tablets Take 1 Tablet By Mouth Every [...] daily 400units Danny Shultz M.D. 09/12/2021 Pioglitazone XUZ13xj Tablets Take 1 Tablet By Mouth Every Day as Directed 90tabs Danny Shultz M.D. Lantus Xvxtqqhz396Ggcj/ML Solution Pen-Inject Inject 14 Units Subcutaneously In Am Dx:E11.8 30units E11Eze8 Danny Shultz M.D. Isosorbide Mononitrate ER30mg Tablets ER 24HR Take 1 Tablet By Mouth Daily Unknown Rosuvastatin Bpwnvxq74av Tablets Take 1 Tablet By Mouth Every Day Freddie Quick Carvedilol6.25mg Tablets Take 1 Tablet By Mouth Twice Daily Unknown One Touch Verio50 Test STR (New) 50 Use 1 Strip To Check Glucose Three Times Daily Dx: E11.9 400units Danny Shultz M.D. Ventolin KST091(90Base) mcg/Act Aerosol Inhale 2 Puffs By Mouth [...] Date Facility Test Result H/L Range Note Hemoglobin A1c 02/05/2024 [facility] Hemoglobin A1c 7.8 % High 4.8-5.6 1 Lipid Panel 02/05/2024 [facility] Cholesterol, Total 92 mg/dL Low 100-199 Triglycerides 88 mg/dL 0-149 HDL Cholesterol 42 mg/dL >39 VLDL Cholestero l Slim 18 mg/dL 5-40 LDL Chol Calc (Nih) 32 mg/dL 0-99 LDL Calc Comment: TNP Non-HDL Cholesterol 50 mg/dL 0-129 Glucose Fingerstick 01/26/2024 Inhouse Glucose Fingerstick 77 Hemoglobin A1c 01/26/2024 Inhouse Hemoglobin A1c 7.6% Glucose Fingerstick 10/06/2023 Inhouse Glucose Fingerstick 89 Hemoglobin A1c 10/06/2023 Inhouse Hemoglobin A1c 7.8% Glucose Fingerstick 06/23/2023 Inhouse Glucose Fingerstick 72 Hemoglobin A1c 06/23/2023 Inhouse Hemoglobin A1c 7.6% Glucose Fingerstick 03/10/2023 Inhouse Glucose Fingerstick 181 TSH With Reflex To FT4 03/08/2023 [facility] TSH With Reflex To FT4 3.76 uIU/mL (0.4-4.2 ) Hemoglobin A1c 03/08/2023 [facility] Hemoglobin A1c 7.1 % High (4.0-5.6 ) 2 Glucose Fingerstick 09/23/2022 Inhouse Glucose Fingerstick 95 Hemoglobin A1c With Est Glucose 09/16/2022 [facility] Hemoglobin A1c 8.1 % High (4.0-5.6 ) 3 Estimated [place] ge Glucose 186 mg/dL Free T4 09/16/2022 [facility] Free T4 1.34 ng/dL (0.70-1. 80) TSH With Reflex To FT4 09/16/2022 [facility] TSH With Reflex To FT4 6.01 uIU/mL High (0.4-4.2 ) Glucose Fingerstick 06/18/2022 Inhouse Glucose Fingerstick 140 Hemoglobin A1c 06/15/2022 [facility] Hemoglobin A1c 7.6 % High (4.0-5.6 ) 4 TSH 06/15/2022 [facility] TSH 3.34 uIU/mL (0.4-4.2 ) TSH With Reflex To FT4 03/25/2022 [facility] TSH With Reflex To FT4 <pending> Glucose Fingerstick 03/25/2022 Inhouse Glucose Fingerstick 122 Hemoglobin A1c 03/19/2022 [facility] Hemoglobin A1c 8.0 % High (4.0-5.6 ) 5 TSH 03/19/2022 [facility] TSH 12.90 uIU/mL High (0.4-4.2 ) Glucose Fingerstick 11/27/2021 Inhouse Glucose Fingerstick 126 TSH 11/19/2021 [facility] TSH 3.83 uIU/mL (0.4-4.2 ) Hemoglobin A1c 11/19/2021 [facility] Hemoglobin A1c 7.7 % High (4.0-5.6 ) 6 1 Prediabetes: 5.7 - 6 .4 Diabetes: >6.4 Glycemic control for adults with diabetes: <7.0 2 MONITORING: In known diabetic patients, hemoglobin A1c targets should be discussed with health care provider. DIAGNOSTIC USE: The [place] Diabetes Association (ADA) and the World Health [...] with health care provider. DIAGNOSTIC USE: The [place] Diabetes Association (ADA) and the World Health [...] with health care provider. DIAGNOSTIC USE: The [place] Diabetes Association (ADA) and the World Health [...] with health care provider. DIAGNOSTIC USE: The [place] Diabetes Association (ADA) and the World Health [...] with health care provider. DIAGNOSTIC USE: The [place] Diabetes Association (ADA) and the World Health [...] Shultz M.D. Plan of Treatment Future Appointment(s):* 06/05/2024 11:00 am - Danny Shultz M.D. at Main Office 01/26/2024 - Danny Shultz M.D.* E11.8 Type 2 diabetes mellitus with unspecified complications * N18.4 Chronic kidney disease stage 4 * Functional Status Description No Information Available Mental Status Description No Information Available Referrals Description No Information Available
--- OUTSIDE RECORDS SUMMARY | 2024-05-22 14:54 | XMS_ITS | Encounter Summary ---
Author Organization [facility] Address [address] [place] [address] Phone Care Team Providers Care Lead Programmer Analyst Name Role Phone Gómez Peoples MK Primary Care Provider [phone] Encounter Details Date Type Department Care Team (Late st Contact Info) Description 02/24/2021 Telephone [facility] [address] [place] [address] Franca Tucker Social History Tobacco Use Types Packs/Day Years Used Date Smoking Tobacco: Former Smokeless Tobacco: Never Alcohol Use Standard Drinks/Week Comments Yes 0 (1 standard drink = 0.6 oz pure alcohol) Alcoholic Drinks/day: Occasional social drink Comments Unknown Sex and Gender Information Value Date Recorded Sex Assigned at Not on file Legal Sex Female 4:40 PM EST Gender Identity Not on file Sexual Orientation Not on file documented as of this encounter Miscellaneous Notes * Telephone Encounter - Franca Tucker - 03/04/2021 11:42 AM EST Left VM for patient * Telephone Encounter - Nithin Greenwood MD - 02/25/2021 5:28 AM EST Can you please let her know that I looked at her labs and everything is stable. Same as last check. thanks * Telephone Encounter - Franca Tucker - 02/24/2021 1:[address] Greenwood, Patient is reluctant on coming into the office for visit because of new Covid variants and prefers Telehealth to which I let her know we are only doing In Office. But she insists to speak with you diontew labs --Pt had labs on 02/19/21 --she mentions if her labs are not stable then she can come in for sooner appt but she still rescheduled for 03/25/21 documented in this encounter Plan of Treatment Not on file documented as of this encounter Visit Diagnoses Not on filedocumented in this encounter Care Teams Lead Programmer Analyst Relationship Specialty Start Date End Date Gómez Peoples NP [facility] [place] [address] PCP - General Nurse Practitioner 05/26/22 documented as of this encounter
--- OUTSIDE RECORDS SUMMARY | 2024-05-22 14:54 | XMS_ITS | Clinical Summary ---
Author Organization [facility] Address [address] [place] [phone] Phone Care Team Providers Care Airborne Electronics Analyst Name Role Phone Gómez Peoples NP Primary Care Provider [phone] Allergies Active Allergy Reactions Criticality Noted Date Comments Atorvastatin 05/26/2022 Lisinopril Other (see comments) 06/05/2020 Medications B Complex Vitamins (vitamin B complex) tablet Take 1 tablet by mouth 1 (one) time each day Active acetaminophen (TYLENOL) 500 MG tablet as needed Active albuterol HFA (PROVENTIL HFA;VENTOLIN HFA) 108 (90 Base) MCG/ACT inhaler Inhale 2 puffs every 4 (four) hours 06/06/2017 Active carvedilol (COREG) 6.25 MG tablet Take 1 tablet by mouth 2 (two) times a day Active cholecalciferol (VITAMIN D-3) 25 MCG (1000 UT) capsule Take 1 capsule by mouth 1 (one) time each day 5 days a week --MON & FRI DOESN'T TAKE DUE TO HIGH VIT D LVL Active glipiZIDE (GLUCOTROL) 10 MG tablet Take 1 tablet by mouth 2 (two) times a day Active insulin glargine (Lantus) 100 UNIT/ML injection Inject 15 Units under the skin at bed time Active isosorbide mononitrate (IMDUR) 30 MG 24 hr tablet Take 1 tablet by mouth 1 (one) time each day Active levothyroxine (SYNTHROID, LEVOTHROID) 75 MCG tablet Take 1 tablet by mouth 1 (one) time each day Active pioglitazone (ACTOS) 15 MG tablet Take 15 mg by mouth 1 (one) time each day Active senna (SENOKOT) 8.6 MG tablet Take 1 tablet by mouth 1 (one) time each day As needed Active rosuvastatin (CRESTOR) 40 MG tablet TAKE 1 TABLET BY MOUTH EVERY DAY 90 tablet 3 12/22/2023 12/22/19 25 Active torsemide (DEMADEX) 20 MG tablet Take 20 mg by mouth in the morning and 20 mg in the evening. 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/2020 Vitamin D deficiency, not otherwise specified Acute nontraumatic kidney injury 06/05/2020 Anemia in chronic kidney disease 06/05/2020 Chronic kidney disease, stage 4 (severe) 021 Edema 06/05/2020 Essential hypertension 06/05/2020 Hyperkalemia 06/05/2020 Secondary hyperparathyroidism 06/05/2020 Hypertensive renal disease 06/05/2020 Proteinuria 06/05/2020 Resolved Problems Problem Noted Date Diagnosed Date Resolved Date Localized edema 06/06/2020 10/07/2020 Disorder due to type 2 diabetes mellitus 06/05/2020 06/06/2020 Encounters Date Type Department Care Team Description 05/11/2024 Treatment [facility] [address] [phone] Reynaldo Wesley MD End stage renal disease; Dependence on renal dialysis 05/09/2024 Treatment [facility] [address] [phone] Reynaldo Wesley MD End stage renal disease; Dependence on renal dialysis 05/09/2024 Orders Only [facility] [address] [phone] Nithin Greenwood MD Chronic kidney disease, stage 4 (severe) (HCC); Congestive heart failure, not otherwise specified (HCC); Diabetic glomerulonephritis (HCC); Hyperkalemia; Other proteinuria; Psoriasis, not otherwise specified; Secondary hyperparathyroidism (HCC); Vitamin D deficiency, not otherwise specified 2024 Treatment [facility] [address] [phone] Reynaldo Wesley MD End stage renal disease; Dependence on renal dialysis 04/27/2024 Treatment [facility] [address] [phone] Reynaldo Wesley MD End stage renal disease; Dependence on renal dialysis from Last 3 Months Immunizations Name Administration Dates Next Due Influenza Split High Dose Preservative Free IM 0 11/19/2018 Influenza, Unspecified 02/08/2018 Family History Medical History Relation Comments Cancer Father Dementia Mother Diabetes Mother Heart disease Mother Hypertension Mother Stroke Mother Diabetes Sibling brother Relation Status Comments Father Mother Sibling Social History Tobacco Use Types Packs/Day Years [...] on file Sexual Orientation Not on file Last Filed Vital Signs Vital Sign Reading Time Taken Comments Blood Pressure 165/73 11/10/2023 11:18 AM EDT Pulse 66 11/10/2023 11:18 AM EDT Temperature - - Respiratory Rate - - Oxygen Saturation 93% 11/10/2023 11:18 AM EDT Inhaled Oxygen Concentration - - Weight 138 kg (303 lb 12.8 oz) 11/10/2023 11:18 AM EDT Height 160 cm (5' 3 ) 11/10/2023 11:18 AM EDT Body Mass Index 53.82 11/10/2023 11:18 AM EDT Plan of Treatment Health Maintenance Due Date Last Done Comments Breast Cancer Screening 1955 Pneumococcal Vaccine: 65+ Ye ars (1 of 2 - PCV) 1960 Hepatitis B Vaccine (1 of 5 - Risk Dialysis 4-dose series) 1974 Colorectal Cancer Screening: Annual FOBT 05/03/2003 Colorectal Cancer Screening: Colonoscopy 05/03/2003 Colorectal Cancer Screening: Sigmoidoscopy 05/03/2003 Diabetes: Ophthalmology Exam 03/25/2020 Diabetes: Pedal Pulse Checked 03/25/2020 Diabetes: Sensory Foot Exam 03/25/2020 Diabetes: Visual Foot Exam 03/25/2020 Influenza Vaccine (#1) 2023 11/19/2018, 2017 Diabetes: Hemoglobin A1C 07/28/2024 025, 09/16/2022, 08/26/2021, Additional history exists Procedures Procedure Name Priority Date/Time Associated Diagnosis Comments HEMOGLOBIN Routine 05/18/2024 3:00 AM EDT HEMOGLOBIN AND HEMATOCRIT, BLOOD Routine 05/11/2024 3:00 AM EDT ALUMINUM LEVEL Routine 04/27/2024 3:00 AM EST HEPATITIS B CORE ANTIBODY, IGM Routine 04/27/2024 3:00 AM EST HEPATITIS B CORE AB TOTAL Routine 04/27/2024 3:00 AM EST HEPATITIS C ABS W/REFLEX RNA DETECTR Routine 04/27/2024 3:00 AM EST CONFIRMATION TEST HCV Routine 04/27/2024 3:00 AM EST TRANSFERRIN SATURATION Routine 04/27/2024 3:00 AM EST PROTEIN, TOTAL, SERUM Routine 04/27/2024 3:00 AM EST LIPID PANEL Routine 04/27/2024 3:00 AM EST ELECTROLYTE PANEL Routine 04/27/2024 3:0 0 AM EST LIH (HC) Routine 04/27/2024 3:00 AM EST GLUCOSE, RANDOM Routine 04/27/2024 3:00 AM EST BILIRUBIN, TOTAL Routine 04/27/2024 3:00 AM EST LACTATE DEHYDROGENASE Routine 04/27/2024 3:00 AM EST CREATININE, SERUM Routine 04/27/2024 3:0 0 AM EST AST Routine 04/27/2024 3:00 AM EST ALT Routine 04/27/2024 3:00 AM EST ALKALINE PHOSPHATASE Routine 04/27/2024 3:00 AM EST CALCIUM PHOSPHORUS PRODUCT, ADJUSTED (HC) Routine 04/27/2024 3:00 AM EST HEPATITIS B SURFACE ANTIGEN W/REFL CONFIRM Routine 04/27/2024 3:00 AM EST HEPATITIS B SURFACE ANTIBODY QUANT Routine 04/27/2024 3:00 AM EST FERRITIN Routine 04/27/2024 3:00 AM EST RETICULOCYTES Routine 04/27/2024 3:00 AM EST KT/V NATURAL LOG, URR (HC) Routine 04/27/2024 3:00 AM EST CBC AND DIFFERENTIAL Routine 04/27/2024 3:00 AM EST Chronic kidney disease, stage 4 (severe) (HCC) Congestive heart failure, not otherwise specified (HCC) Diabetic glomerulonephritis (HCC) Hyperkalemia Other proteinuria Psoriasis, not otherwise specified Secondary hyperparathyroidism (HCC) Vitamin D deficiency, not otherwise specified VITAMIN D 25 HYDROXY Routine 04/27/2024 3:00 AM EST Chronic kidney disease, stage 4 (severe) (HCC) Congestive heart failure, not otherwise specified (HCC) Diabetic glomerulonephritis (HCC) Hyperkalemia Other proteinuria Psoriasis, not otherwise specified Secondary hyperparathyroidism (HCC) Vitamin D deficiency, not otherwise specified PTH, INTACT Routine 04/27/2024 3:00 AM EST Chronic kidney disease, stage 4 (severe) (HCC) Congestive heart failure, not otherwise specified (HCC) Diabetic glomerulonephritis (HCC) Hyperkalemia Other proteinuria Psoriasis, not otherwise specified Secondary hyperparathyroidism (HCC) Vitamin D deficiency, not otherwise specified MAGNESIUM Routine 04/27/2024 3:00 AM EST Chronic kidney disease, stage 4 (severe) (HCC) Congestive heart failure, not otherwise specified (HCC) Diabetic glomerulonephritis (HCC) Hyperkalemia Other proteinuria Psoriasis, not otherwise specified Secondary hyperparathyroidism (HCC) Vitamin D deficiency, not otherwise specified URIC ACID Routine 04/27/2024 3:00 AM EST Chronic kidney disease, stage 4 (severe) (HCC) Congestive heart failure, not otherwise specified (HCC) Diabetic glomerulonephritis (HCC) Hyperkalemia Other proteinuria Psoriasis, not otherwise specified Secondary hyperparathyroidism (HCC) Vitamin D deficiency, not otherwise specified HEMOGLOBIN A1C W EAG Routine 09/16/2022 9:17 AM EDT from Last 3 Months or Most Recently Relevant to Health Maintenance Results * (ABNORMAL) Hemoglobin (05/18/2024 3:00 AM EDT) Hgb 9.1(L) 11.2 - 15.7 g/dL [facility] Hemoglobin x 3 27.3(L) 33.6 - 47.1 g/dL [facility] 05/18/2024 3:00 AM EDT 05/19/2024 12:09 PM EDT us Reynaldo Wesley MD LAB BLOOD ORDERABLES Final Resul t [facility] [address] [place] [address] * (ABNORMAL) Hemoglobin and hematocrit (05/11/2024 3:00 AM EDT) Hgb 8.9(L) 11.2 - 15.7 g/dL [facility] Hematocrit 29.0(L) 34.1 - 44.9 % [facility] Hemoglobin x 3 26.7(L) 33.6 - 47.1 g/dL [facility] 05/11/2024 3:00 AM EDT 05/12/2024 12:51 PM EDT us Reynaldo Wesley MD LAB BLOOD ORDERABLES Final Resul t Performing Organization Address [facility] de Phone Number [facility] [address] [place] [address] * Confirmation Test HCV (04/27/2024 3:00 AM EST) Hep C Ab Confirmation Not needed [facility] 04/27/2024 3:00 AM EST 04/28/2024 12:34 PM EST Reynaldo Wesley MD LAB BLOOD ORDERABLES Final Resul t Performing Organization Address [facility] de Phone Number [facility] [address] [place] [address] * LIH (04/27/2024 3:00 AM EST) Pathologist [facility] Lipemia Normal Normal [facility] Icterus Normal Normal [facility] Hemolysis Normal Normal [facility] 04/27/2024 3:00 AM EST 04/28/2024 1:54 PM EST Reynaldo Wesley MD LAB [id number] ICITED RESULTS Final Result Performing Organization Address [facility] de Phone Number [facility]PS [facility] [address] [place] [address] * (ABNORMAL) Kt/V Natural Log, URR (04/27/2024 3:00 AM EST) Treatment Time 195 min [facility] Pre-Weight, lb 129.2 kg [facility] Post-Weight, lb 128.7 kg [facility] Ultrafiltration Rate 1 <=13 mL/kg/hr [facility] Comment: Recommend achieving Ultrafiltration Rate (UFR) <=10 mL/kg/hr References: Aidee KLEIN et al. Kidney Int. 2010; 79(2):250-257 BUN Post Dialysis 14 7 - 25 mg/dL [facility] BUN 62(H) 7 - 25 mg/dL [facility] UREA REDUCTION RATIO (%) 77 >=65 % [facility] Kt/V Natural Log 1.62 >=1.2 [facility] 04/27/2024 3:00 AM EST 04/28/2024 12:13 PM EST Reynaldo Wesley MD LAB [id number] ICITED RESULTS Final Result Performing Organization Address [facility] Co de Phone Number [facility] [address] [place] [address] * (ABNORMAL) Calcium Phosphorus Product, Adjusted (04/27/2024 3:00 AM EST) Pathologist [facility] Albumin 4.6 3.6 - 5.4 g/dL [facility] Calcium 9.1 8.6 - 10.3 mg/dL [facility] Phosphorus, Serum 6.5(H) 2.5 - 5.0 mg/dL [facility] Ca*PO4 59.2(A) <55.0 mg2/dL2 [facility] Calcium, Adjusted Total 9.1 8.6 - 10.3 mg/dL [facility] CA*PO4 CORRCTD 59.2(A) <55.0 mg2/dL2 [facility] 04/27/2024 3:00 AM EST 04/28/2024 1:54 PM EST Reynaldo Wesley MD LAB [id number] ICITED RESULTS Final Result Performing Organization Address [facility] Co de Phone Number [facility] [address] [place] [address] * HEPATITIS C ABS W/REFLEX RNA DETECTR (04/27/2024 3:00 AM EST) Hep C Virus Ab Non-Reacti ve Non-Reacti ve [facility] 04/27/2024 3:00 AM EST 04/28/2024 1:54 PM EST Reynaldo Wesley MD LAB [id number] ICITED RESULTS Final Result Performing Organization Address [facility] Co de Phone Number [facility] [address] [place] [address] * Hepatitis B Surface Ag w/Reflex Confirmation (04/27/2024 3:00 AM EST) Hep B Surface Antigen Negative Negative [facility] 04/27/2024 3:00 AM EST 04/28/2024 1:54 PM EST us Reynaldo Wesley MD LAB BLOOD ORDERABLES Final Resul t Performing Organization Address [facility] Co de Phone Number [facility] [address] [place] [address] * (ABNORMAL) TSAT (04/27/2024 3:00 AM EST) Pathologist [facility] Iron 63 50 - 170 ug/dL [facility] Transferrin 235(L) 250 - 380 mg/dL [facility] TIBC 329 211 - 406 ug/dL [facility] Iron Saturation (TSat) 19(L) 22 - 52 % [facility] 04/27/2024 3:00 AM EST 04/28/2024 1:54 PM EST us Reynaldo Wesley MD LAB BLOOD ORDERABLES Final Resul t Performing Organization Address [facility] de Phone Number [facility] [address] [place] [address] * Hepatitis B core antibody, IgM (04/27/2024 3:00 AM EST) Hepatitis B Core Ab, IgM Negative Negative [facility] 04/27/2024 3:00 AM EST 04/28/2024 1:54 PM EST us Reynaldo Wesley MD LAB BLOOD ORDERABLES Final Resul t Performing Organization Address [facility] Co de Phone Number [facility] [address] [place] [address] * Hepatitis B Core Antibody, Total (04/27/2024 3:00 AM EST) HBc Total Ab, S Negative Negative [facility] 04/27/2024 3:00 AM EST 04/28/2024 1:54 PM EST us Reynaldo Wesley MD LAB BLOOD ORDERABLES Final Resul t Performing Organization Address [facility] de Phone Number [facility] [address] [place] [address] * Aluminum level (04/27/2024 3:00 AM EST) Aluminum 5 1 - 20 ug/L [facility] 04/27/2024 3:00 AM EST 04/28/2024 12:34 PM EST us Reynaldo Wesley MD LAB BLOOD ORDERABLES Final Resul t Performing Organization Address [facility] de Phone Number [facility] [address] [place] [address] * Vitamin D 25 Hydroxy (04/27/2024 3:00 AM EST) Vitamin D, 25-Hydroxy 33 30 - 100 ng/mL [facility] Comment: Status ? Adult ?? Pediatric Deficient: ? <20 ? <15 Insufficient: ??20-29 ?? 15-19 Sufficient: ?30-100 ??20-100 Blood (Blood, Venous) 04/27/2024 3:00 AM EST 04/28/2024 1:54 PM EST us Nithin Greenwood MD LAB BLOOD ORDERABLES Final Re sult Performing Organization Address [facility] de Phone Number [facility] [address] [place] [address] * (ABNORMAL) Hepatitis B Surface Antibody (04/27/2024 3:00 AM EST) Hep B Surface Antibody <4(A) mIU/mL [facility] Comment: Interpretation: <10: No Immunity >=10: Probable Immunity 04/27/2024 3:00 AM EST 04/28/2024 1:54 PM EST us Reynaldo Wesley MD LAB BLOOD ORDERABLES Final Resul t [facility] [address] [place] [address] * (ABNORMAL) Reticulocytes (04/27/2024 3:00 AM EST) Pathologist [facility] Reticulocyte 5.5(H) 0.5 - 1.7 % [facility] Retic Ct Pct 35.3 28.2 - 35.7 pg [facility] 04/27/2024 3:00 AM EST 04/28/2024 12:34 PM EST us Reynaldo Wesley MD LAB BLOOD ORDERABLES Final Resul t Performing Organization Address [facility] Co de Phone Number [facility] [address] [place] [address] * (ABNORMAL) CBC and Differential (04/27/2024 3:00 AM EST) Pathologist [facility] DIFFERENTIAL MANUAL, 2 Not Indicated [facility] White Blood Cells 9.6 4.0 - 10.0 K/uL [facility] RBC 3.38(L) 3.93 - 5.22 M/uL [facility] Hgb 10.4(L) 11.2 - 15.7 g/dL [facility] Hemoglobin x 3 31.2(L) 33.6 - 47.1 g/dL [facility] Hematocrit 33.0(L) 34.1 - 44.9 % [facility] MCV 97.6(H) 79.4 - 94.8 fL [facility] MCH 30.8 25.6 - 32.2 pg [facility] MCHC 31.5(L) 32.2 - 35.5 g/dL [facility] Platelets 157(L) 182 - 369 K/uL [facility] RDW 17.6(H) 11.7 - 14.4 % [facility] Neutrophils Relative 83.1(H) 34.0 - 71.1 % [facility] Lymphocytes Relative 6.6(L) 19.3 - 51.7 % [facility] Monocytes 6.9 4.7 - 12.5 % [facility] Eosinophils Relative 2.1 0.7 - 5.8 % [facility] Basophils Relative 0.4 0.1 - 1.2 % [facility] Immature Granulocytes 0.9 0.0 - 1.0 % [facility] Blood (Blood, Venous) 04/27/2024 3:00 AM EST 04/28/2024 12:34 PM EST Nithin Greenwood MD LAB BLOOD ORDERABLES Final Re sult Performing Organization Address [facility] de Phone Number [facility] [address] [place] [address] * Uric Acid (04/27/2024 3:00 AM EST) Uric Acid 6.6 2.3 - 6.6 mg/dL [facility] Blood (Blood, Venous) 04/27/2024 3:00 AM EST 04/28/2024 1:54 PM EST Nithin Greenwood MD LAB BLOOD ORDERABLES Final Re sult Performing Organization Address [facility] de Phone Number [facility] [address] [place] [address] * ALT (04/27/2024 3:00 AM EST) ALT (SGPT) 34 10 - 49 U/L [facility] 04/27/2024 3:00 AM EST 04/28/2024 1:54 PM EST Reynaldo Wesley MD LAB BLOOD ORDERABLES Final Resul t Performing Organization Address [facility] de Phone Number [facility] [address] [place] [address] * AST (04/27/2024 3:00 AM EST) AST (SGOT) 30 <34 U/L [facility] 04/27/2024 3:00 AM EST 04/28/2024 1:54 PM EST Reynaldo Wesley MD LAB BLOOD ORDERABLES Final Resul t Performing Organization Address [facility] de Phone Number [facility] [address] [place] [address] * Protein, total (04/27/2024 3:00 AM EST) Total Protein 7.0 6.4 - 8.9 g/dL [facility] 04/27/2024 3:00 AM EST 04/28/2024 1:54 PM EST Reynaldo Wesley MD LAB BLOOD ORDERABLES Final Resul t Performing Organization Address [facility] de Phone Number [facility] [address] [place] [address] * Alkaline phosphatase (04/27/2024 3:00 AM EST) Alkaline Phosphatase 76 46 - 116 U/L [facility] 04/27/2024 3:00 AM EST 04/28/2024 1:54 PM EST Reynaldo Wesley MD LAB BLOOD ORDERABLES Final Resul t Performing Organization Address [facility] de Phone Number [facility] [address] [place] [address] * PTH, Intact (04/27/2024 3:00 AM EST) PTH, Intact 666 160 - 721 pg/mL [facility] Comment: Suggested (KDIGO) ESRD maintenance range is two to nine times the upper normal limit (80.1 pg/mL) for the laboratory. Blood (Blood, Venous) 04/27/2024 3:00 AM EST 04/28/2024 1:54 PM EST Nithin Greenwood MD LAB BLOOD ORDERABLES Final Re sult Performing Organization Address [facility] de Phone Number [facility] [address] [place] [address] * Magnesium (04/27/2024 3:00 AM EST) Magnesium 2.4 1.9 - 2.7 mg/dL [facility] Blood (Blood, Venous) 04/27/2024 3:00 AM EST 04/28/2024 1:54 PM EST Nithin Greenwood MD LAB BLOOD ORDERABLES Final Re sult Performing Organization Address [facility] de Phone Number [facility] [address] [place] [address] * (ABNORMAL) Lactate dehydrogenase (04/27/2024 3:00 AM EST) LDH 357(H) 120 - 246 U/L [facility] 04/27/2024 3:00 AM EST 04/28/2024 1:54 PM EST Reynaldo Wesley MD LAB BLOOD ORDERABLES Final Resul t Performing Organization Address [facility] de Phone Number [facility] [address] [place] [address] * (ABNORMAL) Glucose, random (04/27/2024 3:00 AM EST) Glucose 258(H) 74 - 109 mg/dL [facility] 04/27/2024 3:00 AM EST 04/28/2024 1:54 PM EST Reynaldo Wesley MD LAB BLOOD ORDERABLES Final Resul t Performing Organization Address [facility] de Phone Number [facility] [address] [place] [address] * Ferritin (04/27/2024 3:00 AM EST) Ferritin 72 10 - 291 ng/mL [facility] 04/27/2024 3:00 AM EST 04/28/2024 1:54 PM EST Reynaldo Wesley MD LAB BLOOD ORDERABLES Final Resul t Performing Organization Address [facility] de Phone Number [facility] [address] [place] [address] * (ABNORMAL) Creatinine, serum (04/27/2024 3:00 AM EST) Creatinine 6.59(H) 0.55 - 1.02 mg/dL [facility] 04/27/2024 3:00 AM EST 04/28/2024 1:54 PM EST us Reynaldo Wesley MD LAB BLOOD ORDERABLES Final Resul t Performing Organization Address [facility] de Phone Number [facility] [address] [place] [address] * Bilirubin, total (04/27/2024 3:00 AM EST) Total Bilirubin 0.3 0.3 - 1.2 mg/dL [facility] 04/27/2024 3:00 AM EST 04/28/2024 1:54 PM EST Reynaldo Wesley MD LAB BLOOD ORDERABLES Final Resul t Performing Organization Address [facility] de Phone Number [facility] [address] [place] [address] * (ABNORMAL) Lipid panel (04/27/2024 3:00 AM EST) Cholesterol 102 <200 mg/dL [facility] Comment: Optimal: ?<200 Borderline: ? 200-239 Higher Risk: ?>239 Triglycerides 148 <150 mg/dL [facility] Comment: Optimal: ?<150 Borderline High: ??150-199 High: ? 200-499 Very High: ?>499 HDL 35(A) >59 mg/dL [facility] Comment: Desirable: ?>59 Higher Risk: ?<40 LDL-Calc 37 <100 mg/dL [facility] Comment: Optimal: ?<100 Above Optimal: ?100-129 Borderline High: ??130-159 High: ? 160-189 Very High: ?>189 VLDL Cholesterol Slim 30(A) <30 mg/dL [facility] Comment: Optimal: ?<30 Borderline High: ??30-39 High: ? 40-99 Very High: ?>99 Chol/HDL Ratio 2.9 <3.3 [facility] Comment: Optimal: ?<3.3 Higher Risk: ?>6.2 04/27/2024 3:00 AM EST 04/28/2024 1:54 PM EST Reynaldo Wesley MD LAB BLOOD ORDERABLES Final Resul t Performing Organization Address [facility] de Phone Number [facility] [address] [place] [address] * (ABNORMAL) Electrolyte panel (04/27/2024 3:00 AM EST) Sodium 133(L) 136 - 145 mEq/L [facility] Potassium 4.5 3.4 - 5.0 mEq/L [facility] Chloride 94(L) 98 - 107 mEq/L [facility] Bicarbonate (CO2) 24 21 - 31 mEq/L [facility] Anion Gap 15(H) 3 - 14 mEq/L [facility] 04/27/2024 3:00 AM EST 04/28/2024 1:54 PM EST us Reynaldo Wesley MD LAB BLOOD ORDERABLES Final Resul t Performing Organization Address [facility] de Phone Number [facility] [address] [place] [address] * (ABNORMAL) HEMOGLOBIN A1C W EAG (09/16/2022 9:17 AM EDT) Hemoglobin A1C 8.1(H) (4.0-5.6) % [facility] Comment: MONITORING: In known diabetic patients, hemoglobin A1c targets should be discussed with health care provider. DIAGNOSTIC USE: ??The [place] Diabetes Association (ADA) and the World Health [...] Research and Education Volume 43, Supplement 1 Estimated Average Glucose 186 MG/DL [facility] Comment: Testing performed or reported by [facility], a Service of [facility], [address] [place] [id number] Marco Antonio Garcia MD, Automobile Sales Representative [facility]# [id number] 09/16/2022 9:17 AM EDT 09/16/2022 9:20 AM EDT us Aps External Provider LAB BLOOD ORDERABLES Final Result [facility] from Last 3 Months or Most Recently Relevant to Health Maintenance Insurance [place] [phone] Care Teams Airborne Electronics Analyst Relationship Specialty Start Date End Date Gómez Peoples NP [address] [place] [address] PCP - General Nurse Practitioner 05/26/22
--- OUTSIDE RECORDS SUMMARY | 2024-05-22 14:54 | XMS_ITS | Clinical Summary ---
Author Organization [address] Address [address] [place] [phone] Phone Care Team Providers Care Erp Business Analyst Name Role Phone Dana Brennan MD Primary Care Provider + Encounters Date Type Department Care Team Description 05/13/2024 Lab Requisition [facility] [address] [place] [phone] Dana Brennan MD Acute kidney failure, unspecified (CMS/HCC); Chronic kidney disease, stage 4 (severe) (CMS/HCC); Hypothyroidism, unspecified; Type 2 diabetes mellitus without complications (CMS/HCC); Hyperlipidemia, unspecified 05/06/2024 Lab Requisition [facility] [address] [place] [phone] Dana Brennan MD Acute kidney failure, unspecified (CMS/HCC); Chronic kidney disease, stage 4 (severe) (CMS/HCC); Hypothyroidism, unspecified; Type 2 diabetes mellitus without complications (CMS/HCC); Hyperlipidemia, unspecified 04/30/2024 Lab Requisition [facility] [address] [place] [phone] Dana Brennan MD Acute kidney failure, unspecified (CMS/HCC); Chronic kidney disease, stage 4 (severe) (CMS/HCC); Hypothyroidism, unspecified; Type 2 diabetes mellitus without complications (CMS/HCC); Hyperlipidemia, unspecified 04/27/2024 Lab Requisition [facility] [address] [place] [phone] Dana Brennan MD Acute kidney failure, unspecified (CMS/HCC); Chronic kidney disease, stage 4 (severe) (CMS/HCC); Hypothyroidism, unspecified; Type 2 diabetes mellitus without complications (CMS/HCC); Hyperlipidemia, unspecified; Vitamin D deficiency, unspecified from Last 3 Months Social History Tobacco Use Types Packs/Day Years Used Date Smoking Tobacco: Never Assessed Comments Unknown Sex and Gender Information Value Date Recorded Sex Assigned at Not on file Legal Sex Female 7:16 AM EST Gender Identity Not on file Sexual Orientation Not on file Plan of Treatment Health Maintenance Due Date Last Done Comments Breast Cancer Screening 1955 Diabetes: Annual Foot Exam 1964 Diabetes: Annual Retina Eye Exam 1964 DTaP,Tdap,and Td Vaccines (1 - Tdap) 1973 Pneumococcal Vaccine: 50+ Years (1 of 2 - PCV) 1973 Zoster Vaccines (1 of 2) 2004 RSV Immunization Patients 60+ Years Old (1 - Risk 60-74 years 1-dose series) 2014 COVID-19 Vaccine ( season) 2023 Influenza Vaccine (#1) 2023 11/19/2018, 2017 Colorectal Cancer Screening: Colonoscopy 04/27/2024 Depression Screening 04/27/2024 Diabetes: Annual Urine Albumin-Creatinine Ratio (uACR) 04/27/2024 Falls Risk Assessment 04/27/2024 Hepatitis C Screening 04/27/2024 Osteoporosis Screening (Bone Density Screening) 04/27/2024 Social Influencers of Health Screening 04/27/2024 Diabetes: Blood Sugar Control Test (HGBA1C) 10/28/2024 04/27/2024, 09/16/2022 Diabetes: Annual GFR (Glomerular Filtration Rate) 05/08/2025 05/08/2024, 05/01/2024, 04/27/2024, Additional history exists Hypertension/CHF/CAD Annual BMP Blood Test 05/08/2025 05/08/2024, 05/01/2024, 04/27/2024, Additional history exists Cholesterol Screening (Lipid Panel) 04/27/2029 04/27/2024 HIB Vaccines Aged Out No longer eligi ble based on patient's age to complete this topic HPV Vaccines Aged Out No longer eligi ble based on patient's age to complete this topic Hepatitis A Vaccines Aged Out No long er eligible based on patient's age to complete this topic Hepatitis B Vaccines Aged Out No long er eligible based on patient's age to complete this topic IPV Vaccines Aged Out No longer eligi ble based on patient's age to complete this topic MMR Vaccines Aged Out No longer eligi ble based on patient's age to complete this topic Meningococcal ACWY Vaccine Aged Out N o longer eligible based on patient's age to complete this topic Meningococcal B Vacine Aged Out No lo nger eligible based on patient's age to complete this topic RSV Immunization Patients Under 20 months Aged Out No longer eligible based on patient's age to complete this topic Varicella Vaccines Aged Out No longer eligible based on patient's age to complete this topic Procedures Procedure Name Priority Date/Time Associated Diagnosis Comments BASIC METABOLIC PANEL Routine 05/08/2024 6:26 AM EDT Acute kidney failure, unspecified (CMS/HCC) Chronic kidney disease, stage 4 (severe) (CMS/HCC) Hypothyroidism, unspecified Type 2 diabetes mellitus without complications (CMS/HCC) Hyperlipidemia, unspecified COMPLETE BLOOD COUNT Routine 05/08/2024 6:26 AM EDT Acute kidney failure, unspecified (CMS/HCC) Chronic kidney disease, stage 4 (severe) (CMS/HCC) Hypothyroidism, unspecified Type 2 diabetes mellitus without complications (CMS/HCC) Hyperlipidemia, unspecified BASIC METABOLIC PANEL Routine 05/01/2024 6:02 AM EDT Acute kidney failure, unspecified (CMS/HCC) Chronic kidney disease, stage 4 (severe) (CMS/HCC) Hypothyroidism, unspecified Type 2 diabetes mellitus without complications (CMS/HCC) Hyperlipidemia, unspecified COMPLETE BLOOD COUNT Routine 05/01/2024 6:02 AM EDT Acute kidney failure, unspecified (CMS/HCC) Chronic kidney disease, stage 4 (severe) (CMS/HCC) Hypothyroidism, unspecified Type 2 diabetes mellitus without complications (CMS/HCC) Hyperlipidemia, unspecified THYROID STIMULATING HORMONE Routine 04/27/2024 6:38 AM EST Acute kidney failure, unspecified (CMS/HCC) Chronic kidney disease, stage 4 (severe) (CMS/HCC) Hypothyroidism, unspecified Type 2 diabetes mellitus without complications (CMS/HCC) Hyperlipidemia, unspecified Vitamin D deficiency, unspecified HEMOGLOBIN A1C Routine 04/27/2024 6:38 AM EST Acute kidney failure, unspecified (CMS/HCC) Chronic kidney disease, stage 4 (severe) (CMS/HCC) Hypothyroidism, unspecified Type 2 diabetes mellitus without complications (CMS/HCC) Hyperlipidemia, unspecified Vitamin D deficiency, unspecified FOLATE Routine 04/27/2024 6:38 AM EST Acute kidney failure, unspecified (CMS/HCC) Chronic kidney disease, stage 4 (severe) (CMS/HCC) Hypothyroidism, unspecified Type 2 diabetes mellitus without complications (CMS/HCC) Hyperlipidemia, unspecified Vitamin D deficiency, unspecified VITAMIN B12 Routine 04/27/2024 6:38 AM EST Acute kidney failure, unspecified (CMS/HCC) Chronic kidney disease, stage 4 (severe) (CMS/HCC) Hypothyroidism, unspecified Type 2 diabetes mellitus without complications (CMS/HCC) Hyperlipidemia, unspecified Vitamin D deficiency, unspecified VITAMIN D 25 HYDROXY Routine 04/27/2024 6:38 AM EST Acute kidney failure, unspecified (CMS/HCC) Chronic kidney disease, stage 4 (severe) (CMS/HCC) Hypothyroidism, unspecified Type 2 diabetes mellitus without complications (CMS/HCC) Hyperlipidemia, unspecified Vitamin D deficiency, unspecified MAGNESIUM Routine 04/27/2024 6:38 AM EST Acute kidney failure, unspecified (CMS/HCC) Chronic kidney disease, stage 4 (severe) (CMS/HCC) Hypothyroidism, unspecified Type 2 diabetes mellitus without complications (CMS/HCC) Hyperlipidemia, unspecified Vitamin D deficiency, unspecified COMPREHENSIVE METABOLIC PANEL Routine 04/27/2024 6:38 AM EST Acute kidney failure, unspecified (CMS/HCC) Chronic kidney disease, stage 4 (severe) (CMS/HCC) Hypothyroidism, unspecified Type 2 diabetes mellitus without complications (CMS/HCC) Hyperlipidemia, unspecified Vitamin D deficiency, unspecified COMPLETE BLOOD COUNT Routine 04/27/2024 6:38 AM EST Acute kidney failure, unspecified (CMS/HCC) Chronic kidney disease, stage 4 (severe) ([facility]/HCC) Hypothyroidism, unspecified Type 2 diabetes mellitus without complications ([facility]/HCC) Hyperlipidemia, unspecified Vitamin D deficiency, unspecified from Last 3 Months Results * (ABNORMAL) Complete blood count (05/08/2024 6:26 AM EDT) Only the most recent of3 resultswithin the time period is included. WBC 4.9 4.8 - 10.8 K/mcL LAB HEMETOLOGY METHOD 05/08/2024 11:32 AM [facility] RBC 2.70(L) 3.80 - 4.80 M/mcL LAB HEMETOLOGY METHOD 05/08/2024 11:32 AM [facility] Hemoglobin 8.3(L) 11.5 - 16.0 g/dL LAB HEMETOLOGY METHOD 05/08/2024 11:32 AM [facility] Hematocrit 28.1(L) 35.0 - 47.0 % LAB HEMETOLOGY METHOD 05/08/2024 11:32 AM [facility] MCV 104.9(H) 79.0 - 98.0 FL LAB HEMETOLOGY METHOD 05/08/2024 11:32 AM [facility] MCH 31.0 27.0 - 32.0 pcg LAB HEMETOLOGY METHOD 05/08/2024 11:32 AM [facility] MCHC 29.5(L) 32.0 - 37.0 g/dL LAB HEMETOLOGY METHOD 05/08/2024 11:32 AM [facility] RDW 18.4(H) 11.0 - 15.0 % LAB HEMETOLOGY METHOD 05/08/2024 11:32 AM [facility] Platelets 51(L) 130 - 400 K/mcL LAB HEMETOLOGY METHOD 05/08/2024 11:32 AM EDT [facility] Comment:previously verified by slide MPV 10.6 7.0 - 11.0 FL LAB HEMETOLOGY METHOD 05/08/2024 11:32 AM EDT [facility] NRBC 0.0 <1.0 % LAB HEMETOLOGY METHOD 05/08/2024 11:32 AM EDT [facility] NRBC Absolute 0.00 <0.10 K/mcL LAB HEMETOLOGY METHOD 05/08/2024 11:32 AM EDT [facility] Blood Venous blood specimen / Unknown Venipuncture / Unknown 05/08/2024 6:26 AM EDT 05/08/2024 9:35 AM EDT us Dana Brennan MD LAB BLOOD ORDERABLES Fin al Result [facility] [address] [place] [address], [place] [phone] * (ABNORMAL) Basic metabolic panel (05/08/2024 6:26 AM EDT) Only the most recent of2 resultswithin the time period is included. Sodium 138 133 - 145 mmol/L LAB CHEMISTRY METHOD 05/08/2024 10:37 AM [facility] Potassium 3.9 3.5 - 5.5 mmol/L LAB CHEMISTRY METHOD 05/08/2024 10:37 AM [facility] Chloride 100 96 - 110 mmol/L LAB CHEMISTRY METHOD 05/08/2024 10:37 AM [facility] CO2 30 21 - 32 mmol/L LAB CHEMISTRY METHOD 05/08/2024 10:37 AM [facility] Anion Gap 8 3 - 11 LAB CHEMISTRY METHOD 05/08/2024 10:37 AM EDT [facility] Glucose 94 70 - 100 mg/dL LAB CHEMISTRY METHOD 05/08/2024 10:37 AM EDT [facility] BUN 39(H) 5 - 25 mg/dL LAB CHEMISTRY METHOD 05/08/2024 10:37 AM EDT [facility] Creatinine 6.18(H) 0.50 - 1.10 mg/dL LAB CHEMISTRY METHOD 05/08/2024 10:37 AM EDT [facility] eGFR 7(L) >=60 mL/min/1. 73m2 LAB CHEMISTRY METHOD 05/08/2024 10:37 AM EDT [facility] Comment:Calculation based on the??Chronic Kidney Disease Epidemiology Collaboration (CKD-EPI) equation refit??without adjustment for race. BUN/Creatinine Ratio 6.3 LAB CHEMISTRY METHOD 05/08/2024 10:37 AM EDT [facility] Calcium 8.6 8.5 - 10.5 mg/dL LAB CHEMISTRY METHOD 05/08/2024 10:37 AM EDT [facility] Blood Venous blood specimen / Unknown Venipuncture / Unknown 05/08/2024 6:26 AM EDT 05/08/2024 9:35 AM EDT us Dana Brennan MD LAB BLOOD ORDERABLES Fin al Result [facility] [address] [place] [address], * Vitamin D 25 hydroxy (04/27/2024 6:38 AM EST) Vit D, 25-Hydroxy 42.0 30.0 - 80.0 ng/mL LAB CHEMISTRY METHOD 04/27/2024 9:24 AM EST [facility] Blood Venous blood specimen / Unknown Venipuncture / Unknown 04/27/2024 6:38 AM EST 04/27/2024 8:26 AM EST us Dana Brennan MD LAB BLOOD ORDERABLES Fin al Result Performing Organization Address City/[facility]/ZIP Co de Phone Number [facility] [address] [place] [address], * Thyroid stimulating hormone (04/27/2024 6:38 AM EST) Pathologist [facility] TSH 3.50 0.40 - 4.00 mcIU/mL LAB CHEMISTRY METHOD 04/27/2024 9:24 AM EST [facility] Blood Venous blood specimen / Unknown Venipuncture / Unknown 04/27/2024 6:38 AM EST 04/27/2024 8:26 AM EST Dana Brennan MD LAB BLOOD ORDERABLES Fin al Result Performing Organization Address [facility] de Phone Number [facility] [address] [place] [address], * (ABNORMAL) Magnesium (04/27/2024 6:38 AM EST) [facility] [place] Magnesium 2.8(H) 1.9 - 2.6 mg/dL LAB CHEMISTRY METHOD 04/27/2024 9:16 AM EST [facility] Blood Venous blood specimen / Unknown Venipuncture / Unknown 04/27/2024 6:38 AM EST 04/27/2024 8:26 AM EST Dana Brennan MD LAB BLOOD ORDERABLES Fin al Result Performing Organization Address City/[facility]/ZIP Co de Phone Number [facility] [address] [place] [address], * (ABNORMAL) Hemoglobin A1c (04/27/2024 6:38 AM EST) Pathologist [facility] Hemoglobin A1C 7.9(H) <6.5 % LAB CHEMISTRY METHOD 04/27/2024 10:32 AM EST [facility] Mean Bld Glu Estim. 180 mg/dL LAB CHEMISTRY METHOD 04/27/2024 10:32 AM EST [facility] Blood Venous blood specimen / Unknown Venipuncture / Unknown 04/27/2024 6:38 AM EST 04/27/2024 8:26 AM EST Dana Brennan MD LAB BLOOD ORDERABLES Fin al Result Performing Organization Address [facility] de Phone Number [facility] [address] [place] [address], [place] [phone] * Folate (04/27/2024 6:38 AM EST) [facility] [place] Folate 12.0 2.8 - 17.0 ng/ml LAB CHEMISTRY METHOD 04/27/2024 9:39 AM EST [facility] Blood Venous blood specimen / Unknown Venipuncture / Unknown 04/27/2024 6:38 AM EST 04/27/2024 8:26 AM EST Dana Brennan MD LAB BLOOD ORDERABLES Fin al Result Performing Organization Address [facility] de Phone Number [facility] [address] [place] [address], [place] [phone] * (ABNORMAL) Vitamin B12 (04/27/2024 6:38 AM EST) Pathologist [facility] Vitamin B-12 >2,000(H) 250 - 900 pcg/mL LAB CHEMISTRY METHOD 04/27/2024 9:39 AM EST [facility] Blood Venous blood specimen / Unknown Venipuncture / Unknown 04/27/2024 6:38 AM EST 04/27/2024 8:26 AM EST Dana Brennan MD LAB BLOOD ORDERABLES Fin al Result Performing Organization Address [facility] Co de Phone Number [facility] [address] [place] [address], * (ABNORMAL) Comprehensive metabolic panel (04/27/2024 6:38 AM EST) Sodium 131(L) 133 - 145 mmol/L LAB CHEMISTRY METHOD 04/27/2024 9:46 AM [facility] Potassium 4.7 3.5 - 5.5 mmol/L LAB CHEMISTRY METHOD 04/27/2024 9:46 AM [facility] Chloride 94(L) 96 - 110 mmol/L LAB CHEMISTRY METHOD 04/27/2024 9:46 AM [facility] CO2 25 21 - 32 mmol/L LAB CHEMISTRY METHOD 04/27/2024 9:46 AM [facility] Anion Gap 12(H) 3 - 11 LAB CHEMISTRY METHOD 04/27/2024 9:46 AM [facility] Glucose 242(H) 70 - 100 mg/dL LAB CHEMISTRY METHOD 04/27/2024 9:46 AM [facility] BUN 67(H) 5 - 25 mg/dL LAB CHEMISTRY METHOD 04/27/2024 9:46 AM [facility] Creatinine 7.07(H) 0.50 - 1.10 mg/dL LAB CHEMISTRY METHOD 04/27/2024 9:46 AM [facility] eGFR 6(L) >=60 mL/min/1. 73m2 LAB CHEMISTRY METHOD 04/27/2024 9:46 AM [facility] Comment:Calculation based on the??Chronic Kidney Disease Epidemiology Collaboration (CKD-EPI) equation refit??without adjustment for race. BUN/Creatinine Ratio 9.5 LAB CHEMISTRY METHOD 04/27/2024 9:46 AM [facility] Calcium 8.8 8.5 - 10.5 mg/dL LAB CHEMISTRY METHOD 04/27/2024 9:46 AM [facility] AST (SGOT) 21 10 - 42 unit/L LAB CHEMISTRY METHOD 04/27/2024 9:46 AM [facility] ALT (SGPT) 39 10 - 60 unit/L LAB CHEMISTRY METHOD 04/27/2024 9:46 AM [facility] Alkaline Phosphatase 86 42 - 121 unit/L LAB CHEMISTRY METHOD 04/27/2024 9:46 AM [facility] Total Protein 6.8 6.0 - 8.0 g/dL LAB CHEMISTRY METHOD 04/27/2024 9:46 AM EST [facility] Albumin 3.9 3.2 - 5.0 g/dL LAB CHEMISTRY METHOD 04/27/2024 9:46 AM [facility] Total Bilirubin 0.4 0.0 - 1.4 mg/dL LAB CHEMISTRY METHOD 04/27/2024 9:46 AM [facility] Blood Venous blood specimen / Unknown Venipuncture / Unknown 04/27/2024 6:38 AM EST 04/27/2024 8:26 AM EST us Dana Brennan MD LAB BLOOD ORDERABLES Fin al Result [facility] [address] [place] [address], from Last 3 Months Insurance MEDICARE [facility] Care Teams Erp Business Analyst Relationship Specialty Start Date End Date Dana Brennan MD [address] [place] [address] PCP - General Family Medicine 04/27/24
--- OUTSIDE RECORDS SUMMARY | 2024-05-22 14:54 | XMS_ITS | Data Portability ---
Author Organization [place] [facility] Address [address] [place] [phone] Care Team Providers Care Spinning And Winding Supervisor Name Role Phone DIANE MOLINA Primary Care Provider Assessment Encounter Date Assessment Date Assessment LastModified [...] eval for pneumonia, mobile XR ordered through [facility], gave patient number so they can ensure [...] ons heard on lung auscultatio n. 2021 [facility] ([employer]), [address], [place], [address], 13:41:44 Medication Orders prednisone 20 mg tablet 2021 [id number], [address], [place], [phone], 16:25:44 prednisone 10 mg tablet 2021 [facility] #[id number], [address], [place], [phone], 16:26:37 benzonatate 100 mg capsule 2021 [place] [facility] #[id number], [address], [place], [phone], 03:37:18 Patient TargetsNo targets recorded. Patient InstructionsNo [...] M.D. 2021 1:31:4 0 PM EST. [email or web address] [facility] [address] [facility] [address], [address], 02/10/2022 14:11:49 Result Notes None recorded. Procedures Surgical History Date Name Laterality Status Provider Name and Address Organization Details Recorded Time 02/10/20 22 Medication Review completed LAWRENCE Bernard [address], [place], [address], [place] [facility] 02/10/2022 08:54:18 section completed LAWRENCE Bernard [address], [place], [address], [place] [facility] 02/09/2022 16:11:28 Imaging Results Imaging Date Name Status LastModified by Organiz ation Details LastModified Time 02/10/2022 XR, chest, 2 view completed [email or web address] [address] [facility] [address], [place], [address], 02/10/2022 14:11:49 Procedure Notes None recorded. Medical Equipment None Reported. Allergies Allergen ID Allergen Name Allergen Category Reaction Reaction Severity Criticality Documentation Date Start Date Code Code System Note Provider Name and Address Organization Details Recorded Time [id number] Lipitor medicatio n Not available Not available Not available 02/09/2022 06913 5 RxNorm LAWRENCE Hassan [address] [place], [address], [place] [facility] 16:07:50 [id number] lisinopri l medicatio n Not available Not available Not available 02/09/2022 09873 RxNorm LAWRENCE Hassan [address], [place], [place], [address], [place] [facility] [...] [degF] 142 mm[Hg] 78 mm[Hg] Not Available [facility] 16:14:46 Social History Question Answer Notes LastModified by Organizat ion Details LastModified Time Tobacco Smoking Status Never Smoker LAWRENCE Bernard [address] [place], [address], [place] [facility] 02/09/2022 16:11:16 What Is Your Level Of Alcohol Consumption? None Information not available 02/09/2022 Do You Use Any Illicit Or Recreational Drugs? No Information not available 02/09/2022 Sex: Unknown Functional Status None recorded. Mental Status None recorded. Family History Nothing Reported. Medical History Condition Response Diabetes Y Coronary Artery Disease N CHF N Parkinson's Disease N Cancer N Stroke N Dementia N Asthma Y Hypothyroidism Y Depression N COPD N High Cholesterol Y Rheumatoid Arthritis N Pulmonary Embolism N Hypertension Y A-fib N Osteoporosis N Kidney Disease Y Gynecological HistoryNo gynecological history recorded. Obstetrics History GPAL:G 0 P 0 0 0 0 Past Encounters Encounter ID Performer Location Encounter Start Date Encounter Closed Date Diagnosis/Indication Diagnosis SNOMED-CT Code Diagnosis ICD10 Code Diagnosis Note [id number] LAWRENCE Braga [facility] [address] [place] [address] 02/09/2022 15:40:17 02/10/2022 11:50:32 Exacerbation of intermittent asthma 142252902 J45.21 Costal chondritis 202728 04 M94.0 Health Concerns Section Related Observation LastModified by Organization Detai ls LastModified Time None Recorded Concern Status LastModified by Organization Details LastModified Time None Recorded Advance Directives Directive None Recorded Payers Encounter Date Sequence Insurance Name Policy Number Policy Bell Covered Member ID Bell Member ID Guarantor Name 02/09/2022 1 [employer] [place] ([id number] Kiara Pollack [id number] Kiara Pollack Notes Date Note Type Note [...] concerns today. LAWRENCE Bernard [address], [place], [address], [place] [facility] 02/10/2022 09:52:56 OBGyn Episode No OBEpisode recorded.
--- OUTSIDE RECORDS SUMMARY | 2024-05-22 14:54 | XMS_ITS | Encounter Summary ---
Author Organization [facility] Address [address] [place] [phone] Care Team Providers Care Pigment Supplier Name Role Phone Dana Brennan MD Primary Care Provider + Encounter Details Date Type Department Care Team (Late st Contact Info) Description 04/30/2024 Lab Requisition [facility] - Main Lab [address] [facility] [place] [address] Dana Brennan MD [address] [facility] 1 [place], [place] [phone] Acute kidney failure, unspecified (CMS/HCC); Chronic kidney [...] on file documented as of this encounter Procedures Procedure Name Priority Date/Time Associated Diagnosis Comments COMPLETE BLOOD COUNT Routine 05/01/2024 6:02 AM EDT Acute kidney failure, unspecified (CMS/HCC) Chronic kidney disease, stage 4 (severe) (CMS/HCC) Hypothyroidism, unspecified Type 2 diabetes mellitus without complications (CMS/HCC) Hyperlipidemia, unspecified BASIC METABOLIC PANEL Routine 05/01/2024 6:02 AM EDT Acute kidney failure, unspecified (CMS/HCC) Chronic kidney disease, stage 4 (severe) (CMS/HCC) Hypothyroidism, unspecified Type 2 diabetes mellitus without complications (CMS/HCC) Hyperlipidemia, unspecified documented in this encounter Results * (ABNORMAL) Basic metabolic panel (05/01/2024 6:02 AM EDT) Sodium 137 133 - 145 mmol/L LAB CHEMISTRY METHOD 05/01/2024 11:[address] [facility] Potassium 3.8 3.5 - 5.5 mmol/L LAB CHEMISTRY METHOD 05/01/2024 11:[address] [facility] Chloride 97 96 - 110 mmol/L LAB CHEMISTRY METHOD 05/01/2024 11:[address] [facility] CO2 28 21 - 32 mmol/L LAB CHEMISTRY METHOD 05/01/2024 11:[address] [facility] Anion Gap 12(H) 3 - 11 LAB CHEMISTRY METHOD 05/01/2024 11:[address] [facility] Glucose 108(H) 70 - 100 mg/dL LAB CHEMISTRY METHOD 05/01/2024 11:[address] [facility] BUN 42(H) 5 - 25 mg/dL LAB CHEMISTRY METHOD 05/01/2024 11:[address] [facility] Creatinine 6.56(H) 0.50 - 1.10 mg/dL LAB CHEMISTRY METHOD 05/01/2024 11:[address] [facility] eGFR 6(L) >=60 mL/min/1. 73m2 LAB CHEMISTRY METHOD 05/01/2024 11:[address] [facility] Comment:Calculation based on the??Chronic Kidney Disease Epidemiology Collaboration (CKD-EPI) equation refit??without adjustment for race. BUN/Creatinine Ratio 6.4 LAB CHEMISTRY METHOD 05/01/2024 11:[address] [facility] Calcium 8.6 8.5 - 10.5 mg/dL LAB CHEMISTRY METHOD 05/01/2024 11:[address] [facility] Blood Venous blood specimen / Unknown Venipuncture / Unknown 05/01/2024 6:02 AM EDT 05/01/2024 9:44 AM EDT us Dana Brennan MD LAB BLOOD ORDERABLES Fin al Result [facility] [address] [place] [address], * (ABNORMAL) Complete blood count (05/01/2024 6:02 AM EDT) [facility] WBC 7.0 4.8 - 10.8 K/mcL LAB HEMETOLOGY METHOD 05/01/2024 12:04 PM EDT [facility] RBC 3.00(L) 3.80 - 4.80 M/mcL LAB HEMETOLOGY [facility] Hemoglobin 9.1(L) 11.5 - 16.0 g/dL LAB HEMETOLOGY METHOD 05/01/2024 12:04 PM EDT [facility] Hematocrit 30.0(L) 35.0 - 47.0 % LAB HEMETOLOGY METHOD 05/01/2024 12:[address] [facility] MCV 101.4(H) 79.0 - 98.0 FL LAB HEMETOLOGY METHOD [facility] MCH 30.7 27.0 - 32.0 pcg LAB HEMETOLOGY METHOD 05/01/2024 12:[address] [facility] MCHC 30.3(L) 32.0 - 37.0 g/dL LAB HEMETOLOGY METHOD 05/01/2024 12:[address] [facility] RDW 18.4(H) 11.0 - 15.0 % LAB HEMETOLOGY METHOD 05/01/2024 12:[address] [facility] Platelets 74(L) 130 - 400 K/mcL LAB HEMETOLOGY METHOD 05/01/2024 12:04 PM EDT [facility] Comment:reviewed by slide MPV 9.8 7.0 - 11.0 FL LAB HEMETOLOGY METHOD 05/01/2024 12:04 PM EDT [facility] NRBC 0.0 <1.0 % LAB HEMETOLOGY METHOD 05/01/2024 12:04 PM EDT [facility] NRBC Absolute 0.00 <0.10 K/mcL LAB HEMETOLOGY METHOD 05/01/2024 12:04 PM EDT [facility] Blood Venous blood specimen / Unknown Venipuncture / Unknown 05/01/2024 6:02 AM EDT 05/01/2024 9:44 AM EDT Dana Brennan MD LAB BLOOD ORDERABLES Fin al Result [facility] [address] [place] [address], documented in this encounter Visit Diagnoses Diagnosis Acute kidney failure, unspecified (CMS/HCC) Acute kidney failure, unspecified Chronic kidney disease, stage 4 (severe) (CMS/HCC) Hypothyroidism, unspecified Type 2 diabetes mellitus without complications Hyperlipidemia, unspecified documented in this encounter Care Teams Pigment Supplier Relationship Specialty Start Date End Date Dana Brennan MD [address] [place] [address] PCP - General Family Medicine 04/27/24 documented as of this encounter
--- OUTSIDE RECORDS SUMMARY | 2024-05-22 14:55 | XMS_ITS | Encounter Summary ---
Author Organization [facility] Address [address] [place] [id number] Care Team Providers Care Greens Keeper Name Role Phone Dana Brennan MD Primary Care Provider + Encounter Details Date Type Department Care Team (Late st Contact Info) Description 04/27/2024 Lab Requisition [facility] - Main Lab [address] [facility] [place] [address] Dana Brennan MD [address] [phone] Acute kidney failure, unspecified (CMS/HCC); Chronic kidney disease, stage 4 (severe) (CMS/HCC); Hypothyroidism, unspecified; Type 2 diabetes mellitus without complications (CMS/HCC); Hyperlipidemia, unspecified; Vitamin D deficiency, unspecified Social History Tobacco Use Types Packs/Day [...] Procedure Name Priority Date/Time Associated Diagnosis Comments VITAMIN D 25 HYDROXY Routine 04/27/2024 6:38 [...] (CMS/HCC) Hyperlipidemia, unspecified Vitamin D deficiency, unspecified THYROID STIMULATING HORMONE Routine 04/27/2024 6:38 [...] (CMS/HCC) Hyperlipidemia, unspecified Vitamin D deficiency, unspecified documented in this encounter Results * Thyroid stimulating hormone (04/27/2024 6:38 AM EST) TSH 3.50 0.40 - 4.00 mcIU/mL LAB CHEMISTRY METHOD 04/27/2024 9:24 AM EST [facility] Blood Venous blood specimen / Unknown Venipuncture / Unknown 04/27/2024 6:38 AM EST 04/27/2024 8:26 AM EST Dana Brennan MD LAB BLOOD ORDERABLES Fin al Result Performing Organization Address City/[facility]/ZIP Co de Phone Number [facility] [address] [place] [address], * (ABNORMAL) Hemoglobin A1c (04/27/2024 6:38 AM EST) Pathologist [facility] Hemoglobin A1C 7.9(H) <6.5 % LAB CHEMISTRY METHOD 04/27/2024 10:32 AM EST [facility] Mean Bld Glu Estim. 180 mg/dL LAB CHEMISTRY METHOD 04/27/2024 10:32 AM EST [facility] Blood Venous blood specimen / Unknown Venipuncture / Unknown 04/27/2024 6:38 AM EST 04/27/2024 8:26 AM EST Dana Brennan MD LAB BLOOD ORDERABLES Fin al Result [facility] [address] [place] [address], [place] [phone] * Folate (04/27/2024 6:38 AM EST) Folate 12.0 2.8 - 17.0 ng/ml LAB CHEMISTRY METHOD 04/27/2024 9:39 AM EST [facility] Blood Venous blood specimen / Unknown Venipuncture / Unknown 04/27/2024 6:38 AM EST 04/27/2024 8:26 AM EST Dana Brennan MD LAB BLOOD ORDERABLES Fin al Result Performing Organization Address City/[facility]/ZIP Co de Phone Number [facility] [address] [place] [address], * (ABNORMAL) Vitamin B12 (04/27/2024 6:38 AM EST) [facility] Vitamin B-12 >2,000(H) 250 - 900 pcg/mL LAB CHEMISTRY METHOD 04/27/2024 9:39 AM EST [facility] Blood Venous blood specimen / Unknown Venipuncture / Unknown 04/27/2024 6:38 AM EST 04/27/2024 8:26 AM EST Dana Brennan MD LAB BLOOD ORDERABLES Fin al Result Performing Organization Address [facility] Co de Phone Number [facility] [address] [place] [address], [place] [phone] * Vitamin D 25 hydroxy (04/27/2024 6:38 AM EST) [facility] Vit D, 25-Hydroxy 42.0 30.0 - 80.0 ng/mL LAB CHEMISTRY METHOD 04/27/2024 9:24 AM EST [facility] Blood Venous blood specimen / Unknown Venipuncture / Unknown 04/27/2024 6:38 AM EST 04/27/2024 8:26 AM EST Dana Brennan MD LAB BLOOD ORDERABLES Fin al Result Performing Organization Address City/[facility]/ZIP Co de Phone Number [facility] [address] [place] [address], * (ABNORMAL) Magnesium (04/27/2024 6:38 AM EST) [facility] Magnesium 2.8(H) 1.9 - 2.6 mg/dL LAB CHEMISTRY METHOD 04/27/2024 9:16 AM [facility] Blood Venous blood specimen / Unknown Venipuncture / Unknown 04/27/2024 6:38 AM EST 04/27/2024 8:26 AM EST us Dana Brennan MD LAB BLOOD ORDERABLES Fin al Result [facility] [address] [place] [address], * (ABNORMAL) Comprehensive metabolic panel (04/27/2024 6:38 AM EST) Sodium 131(L) 133 - 145 mmol/L LAB CHEMISTRY METHOD 04/27/2024 9:46 AM [facility] Potassium 4.7 3.5 - 5.5 mmol/L LAB CHEMISTRY METHOD 04/27/2024 9:46 AM [facility] Chloride 94(L) 96 - 110 mmol/L LAB CHEMISTRY METHOD 04/27/2024 9:46 AM [facility] CO2 25 21 - 32 mmol/L LAB CHEMISTRY METHOD 04/27/2024 9:46 AM [facility] Anion Gap 12(H) 3 - 11 LAB CHEMISTRY METHOD 04/27/2024 9:46 AM [facility] Glucose 242(H) 70 - 100 mg/dL LAB CHEMISTRY METHOD 04/27/2024 9:46 AM [facility] BUN 67(H) 5 - 25 mg/dL LAB CHEMISTRY METHOD 04/27/2024 9:46 AM [facility] Creatinine 7.07(H) 0.50 - 1.10 mg/dL LAB CHEMISTRY METHOD 04/27/2024 9:46 AM [facility] eGFR 6(L) >=60 mL/min/1. 73m2 LAB CHEMISTRY METHOD 04/27/2024 9:46 AM [facility] Comment:Calculation based on the??Chronic Kidney Disease Epidemiology Collaboration (CKD-EPI) equation refit??without adjustment for race. BUN/Creatinine Ratio 9.5 LAB CHEMISTRY METHOD 04/27/2024 9:46 AM [facility] Calcium 8.8 8.5 - 10.5 mg/dL LAB CHEMISTRY METHOD 04/27/2024 9:46 AM [facility] AST (SGOT) 21 10 - 42 unit/L LAB CHEMISTRY METHOD 04/27/2024 9:46 AM [facility] ALT (SGPT) 39 10 - 60 unit/L LAB CHEMISTRY METHOD 04/27/2024 9:46 AM [facility] Alkaline Phosphatase 86 42 - 121 unit/L LAB CHEMISTRY METHOD 04/27/2024 9:46 AM [facility] Total Protein 6.8 6.0 - 8.0 g/dL LAB CHEMISTRY METHOD 04/27/2024 9:46 AM [facility] Albumin 3.9 3.2 - 5.0 g/dL LAB CHEMISTRY METHOD 04/27/2024 9:46 AM [facility] Total Bilirubin 0.4 0.0 - 1.4 mg/dL LAB CHEMISTRY METHOD 04/27/2024 9:46 AM [facility] Blood Venous blood specimen / Unknown Venipuncture / Unknown 04/27/2024 6:38 AM EST 04/27/2024 8:26 AM EST us Dana Brennan MD LAB BLOOD ORDERABLES Fin al Result [facility] [address] [place] [address], * (ABNORMAL) Complete blood count (04/27/2024 6:38 AM EST) WBC 8.5 4.8 - 10.8 K/mcL LAB HEMETOLOGY METHOD 04/27/2024 8:49 AM [facility] RBC 3.20(L) 3.80 - 4.80 M/mcL LAB HEMETOLOGY METHOD 04/27/2024 8:49 AM [facility] Hemoglobin 9.7(L) 11.5 - 16.0 g/dL LAB HEMETOLOGY METHOD 04/27/2024 8:49 AM [facility] Hematocrit 31.1(L) 35.0 - 47.0 % LAB HEMETOLOGY METHOD 04/27/2024 8:49 AM [facility] MCV 97.8 79.0 - 98.0 FL LAB HEMETOLOGY METHOD 04/27/2024 8:49 AM [facility] MCH 30.5 27.0 - 32.0 pcg LAB HEMETOLOGY METHOD 04/27/2024 8:49 AM [facility] MCHC 31.2(L) 32.0 - 37.0 g/dL LAB HEMETOLOGY METHOD 04/27/2024 8:49 AM [facility] RDW 17.7(H) 11.0 - 15.0 % LAB HEMETOLOGY METHOD 04/27/2024 8:49 AM [facility] Platelets 153 130 - 400 K/mcL LAB HEMETOLOGY METHOD 04/27/2024 8:49 AM [facility] MPV 9.9 7.0 - 11.0 FL LAB HEMETOLOGY METHOD 04/27/2024 8:49 AM [facility] NRBC 0.0 <1.0 % LAB HEMETOLOGY METHOD 04/27/2024 8:49 AM [facility] NRBC Absolute 0.00 <0.10 K/mcL LAB HEMETOLOGY METHOD 04/27/2024 8:49 AM [facility] Blood Venous blood specimen / Unknown Venipuncture / Unknown 04/27/2024 6:38 AM EST 04/27/2024 8:26 AM EST Dana Brennan MD LAB BLOOD ORDERABLES Fin al Result Performing Organization Address City/[facility] Co de Phone Number [facility] ([facility] [address] [place] [address], documented in this encounter Visit Diagnoses Diagnosis Acute kidney failure, unspecified (CMS/HCC) Acute kidney failure, unspecified Chronic kidney disease, stage 4 (severe) (CMS/HCC) Hypothyroidism, unspecified Type 2 diabetes mellitus without complications Hyperlipidemia, unspecified Vitamin D deficiency, unspecified documented in this encounter Care Teams Greens Keeper Relationship Specialty Start Date End Date Dana Brennan MD [address] [place] [address] PCP - General Family Medicine 04/27/24 documented as of this encounter
--- OUTSIDE RECORDS SUMMARY | 2024-05-22 14:55 | XMS_ITS | Data Portability ---
Author Organization [facility], [facility] Address [address] [place] [address] Care Team Providers Care Lawyers Name Role Phone DANYA ALLEN High Climber TANVIR RUST Vascular Surgeon DANNY DAVILA Vascular Surgeon AMERICO MONTALVO Psychologist MANUELITO PARISI Information Security Engineer DANNY UNDERWOOD Telephone Information Clerk Assessment Encounter Date Assessment Date Assessment LastModified [...] total iron-leonie ng capacity (TIBC), serum 2019 [place] [facility] (Centralized Electronic Ordering - All Locations), Patient Can Go To The Location Of Their Choice, 13:16:26 ferritin, serum or plasma 2019 [place] [facility] (Centralized Electronic Ordering - All Locations), Patient Can Go To The Location Of Their Choice, 13:35:30 vitamin B12, serum 2019 [place] [facility] (Centralized Electronic Ordering - All Locations), Patient Can Go To The Location Of Their Choice, 13:35:29 lipid panel, serum 2019 [place] [facility] (Centralized Electronic Ordering - All Locations), Patient Can Go To The Location Of Their Choice, 13:16:28 Referral None recorded. Procedures None recorded. Surgeries None recorded. Imaging None recorded. Medication Orders Colace 100 mg capsule 2020 [facility] #[id number], [address] [place] [address], [id number], 12:42:16 aspirin 81 mg chewable tablet 2020 [facility] #[id number], [address] [place] [address], [id number], 12:42:17 rosuvastat in 40 mg tablet 2019 020 [facility] #[id number], [address] [place] [address], [id number], 0 13:08:48 Patient TargetsNo targets recorded. Patient Instructions Encounter Date Encounter Id Patient Instructions Last Modified By Organization Details Last Modified Time 12/08/2019 [id number] After a discussi on of treatment options, which included consideration of best practices and patient preferences, the above treatment plan and objectives were adopted. [email or web address] Not available 12/08/2019 13:26:39 06/21/2020 [id number] After a discussi on of treatment options, which included consideration of best practices and patient preferences, the above treatment plan and objectives were adopted. [email or web address] Not available 06/21/2020 20:43:28 07/03/2020 [id number] After a discussi on of treatment options, [...] 84 mg/dL (70-99 ) Not Available [facility] (Centralized Electronic Ordering - All Locations) Patient Can Go To The Location Of Their Choice, 04/24/2020 13:16:25 04/25/1904/24/2020 BMP, serum or plasm a BUN 47 mg/dL (8-23) high Not Available [facility] (Centralized Electronic Ordering - All Locations) Patient Can Go To The Location Of Their Choice, 04/24/2020 13:16:25 04/25/1904/24/2020 BMP, serum or plasm a creatinine 2.1 mg/dL (0.5-1 .0) high Not Available [facility] (Centralized Electronic Ordering - All Locations) Patient Can Go To The Location Of Their Choice, 04/24/2020 13:16:25 04/25/1904/24/2020 BMP, serum or plasm a sodium 144 mmol/ L (133-1 45) Not Available [facility] (Centralized Electronic Ordering - All Locations) Patient Can Go To The Location Of Their Choice, 04/24/2020 13:16:25 04/25/1904/24/2020 BMP, serum or plasm a potassium 5.1 mmol/ L (3.6-5 .2) Not Available [facility] (Centralized Electronic Ordering - All Locations) Patient Can Go To The Location Of Their Choice, 04/24/2020 13:16:25 04/25/1904/24/2020 BMP, serum or plasm a chloride 106 mmol/ L (98-10 7) Not Available [facility] (Centralized Electronic Ordering - All Locations) Patient Can Go To The Location Of Their Choice, [id number] 04/24/2020 13:16:25 04/25/1904/24/2020 BMP, serum or plasm a bicarbonate 29 mmol/ L (22-29 ) Not Available [facility] (Centralized Electronic Ordering - All Locations) Patient Can Go To The Location Of Their Choice, [id number] 04/24/2020 13:16:25 04/25/19 21 04/24/2020 BMP, serum or plasm a anion gap 9 (4-17) Not Available [facility] (Centralized Electronic Ordering - All Locations) Patient Can Go To The Location Of Their Choice, [id number] 04/24/2020 13:16:25 04/25/1904/24/2020 BMP, serum or plasm a calcium 9.5 mg/dL (8.6-1 0.5) Not Available [facility] (Centralized Electronic Ordering - All Locations) Patient Can Go To The Location Of Their Choice, [id number] 04/24/2020 13:16:25 04/25/1904/24/2020 BMP, serum or plasm a est GFR [...] Afric an Ameri cans. Not Available [facility] (Centralized Electronic Ordering - All Locations) Patient Can Go To The Location Of Their Choice, [id number] 04/24/2020 13:16:25 04/25/1904/24/2020 BMP, serum or plasm a est GFR [...] ethni c subgr oups other than Cauca siaandrew and Afric an Ameri cans. Not Available [facility] (Centralized Electronic Ordering - All Locations) Patient Can Go To The Location Of Their Choice, 04/24/2020 13:16:25 04/25/1904/24/2020 iron + total iron- leonie ng capac ity (TIBC ), serum iron 75 mcg/d L (30-16 0) Not Available [facility] (Centralized Electronic Ordering - All Locations) Patient Can Go To The Location Of Their Choice, 04/24/2020 13:16:26 04/25/1904/24/2020 iron + total iron- leonie ng capac ity (TIBC ), serum unsaturated iron binding capac 311 mcg/d L (110-3 70) Not Available [facility] (Centralized Electronic Ordering - All Locations) Patient Can Go To The Location Of Their Choice, 04/24/2020 13:16:26 04/25/19 21 04/24/2020 iron + total iron- leonie ng capac ity (TIBC ), serum est T. iron bind capacity 386 mcg/d L (140-5 30) Not Available [facility] (Centralized Electronic Ordering - All Locations) Patient Can Go To The Location Of Their Choice, 04/24/2020 13:16:26 04/25/1904/24/2020 iron + total iron- leonie ng capac ity (TIBC ), serum % iron saturation 19 % (20-55 ) low Not Available [facility] (Centralized Electronic Ordering - All Locations) Patient Can Go To The Location Of Their Choice, 04/24/2020 13:16:26 04/25/19 21 04/24/2020 lipid panel , serum cholesterol, total 126 mg/dL (<200) Not Available [facility] (Centralized Electronic Ordering - All Locations) Patient Can Go To The Location Of Their Choice, 04/24/2020 13:16:27 04/25/19 21 04/24/2020 lipid panel , serum triglyceride 106 mg/dL (<150) Not Available [facility] (Centralized Electronic Ordering - All Locations) Patient Can Go To The Location Of Their Choice, 04/24/2020 13:16:27 04/25/19 21 04/24/2020 lipid panel , serum HDL chol 47 mg/dL (>39) Not Available [facility] (Centralized Electronic Ordering - All Locations) Patient Can Go To The Location Of Their Choice, 04/24/2020 13:16:27 04/25/19 21 04/24/2020 lipid panel , serum LDL cholesterol, calculated 58 mg/dL (0-130 ) Not Available [facility] (Centralized Electronic Ordering - All Locations) Patient Can Go To The Location Of Their Choice, 04/24/2020 13:16:27 04/25/19 21 04/24/2020 lipid panel , serum non HDL cholesterol (calc) 79 mg/dL (<160) Not Available [facility] (Centralized Electronic Ordering - All Locations) Patient Can Go To The Location Of Their Choice, 04/24/2020 13:16:27 04/25/19 21 04/24/2020 vitam in B12, serum vitamin B12 1781 pg/mL (232-1 245) high Not Available [facility] (Centralized Electronic Ordering - All Locations) Patient Can Go To The Location Of Their Choice, 04/24/2020 13:35:29 04/25/1904/24/2020 terrell tin, serum or plasm a ferritin 51 NG/mL (14-28 3) Not Available [facility] (Centralized Electronic Ordering - All Locations) Patient Can Go To The Location Of Their Choice, 04/24/2020 13:35:30 07/01/19 21 07/04/2020 fecal occul t blood , immun oassa y, stool ifobt NEGATI VE negati ve Not Available [facility] [address] [facility], [place], [address], 07/04/2020 12:09:02 07/04/19 21 07/03/2020 XR, hip, [...] rative diseas e. Electr onical ly signed Rene Boston bettye: [place] Peralta ms [facility] ([facility]) [address], [place], [address], 07/06/2020 15:25:33 Result Notes None recorded. Problems Name Problem SNOMED Code Status Onset Date Resolution Date Notes Provider Name and Address Organization Details Recorded Time Greater trochant praneeth pain syndrome 2323947 Active Mariann Reyes NP [address] [place], [place] [address]Henry [place], 1, [facility] 5 20:34:02 Hyperlip idemia 80687958 Active Mariann Reyes NP [address] [place], [place] [address]Henry [place], 1, [facility] 6 11:03:24 Neuropat hic arthropa thy due to diabetes mellitus 827629043 Abdulaziz Reyes NP [address] [place], [place] [address], 1, [facility] 6 11:03:24 Type 2 diabetes mellitus 60919620 Completed 10/07/2016 age 46, 2002 Freddie Quick MD [address] [place], [place] [address], [address], [facility] 7 11:48:10 Hypothyr oidism 95845819 Active Mariann Reyes NP [address] [place], [place] [address], 1, [facility] 6 11:03:24 Carotid artery stenosis 02288520 Abdulaziz Reyes NP [address] [place], [place] [address], [address], [facility] 5 20:34:02 Vitamin D deficien cy 87241897 Active Mariann Reyes NP [address] [place], [place] [address], [place], [address], [facility] 6 11:03:24 Adhesive capsulit is of shoulder 496346583 Completed 09/05/2015 Removal Reason: resolved Mariann Reyes NP [address] [place] [address] [place], [place], [address], [facility] 6 10:51:17 Benign essentia l hyperten mauro 7702540 Active Mariann Reyes NP [address] [place], [place] [address], [place], [address], [facility] 6 11:03:24 Angina pectoris 735694135 Active Mariann Reyes NP [address] [place], [place] [address], [place], [address], [facility] 6 11:03:24 Kidney disease 03845334 Active 2014 Mariann Reyes NP [address] [place], [place] [address], [place], [address], [facility] 5 20:50:23 Lumbar radiculo ector 031547819 Active Mariann Ryees NP [address] [place] [address] [place], [place], [address], [facility] 6 11:03:24 Psoriasi s 1984211 Active Mariann Reyes NP [address] [place] [address] [place], [place], [address], [facility] 6 18:27:10 Morbid obesity 478143566 Active Mariann Reyes NP [address] [place] [address] [place], [place], [address], [facility] 6 11:03:24 Multiple complica tions due to type 2 diabetes mellitus Active 2015 Mariann Reyes NP [address] [place] [address] [place], [place], [address], [facility] 6 21:00:03 Mixed hyperlip idemia 349813614 Active 2015 Mariann Reyes NP [address] [place] [address], [address], [facility] 6 21:01:57 Medicati on monitori ng Completed 201610/07/2016 Freddie Quick MD [address] [place] [address] [place], [address], [facility] 7 11:48:19 Problem Notes None recorded. Procedures Surgical History Date Name Laterality Status Provider Name and Address Organization Details Recorded Time 07/25/19 21 Trochanteric Bursa Injection completed Freddie Quick MD [address] [place] [address], [phone], [facility] 07/24/2020 11:42:07 07/04/19 21 Trochanteric Bursa Injection completed Freddie Quick MD [address] [place] [address], [address], [facility] 07/03/2020 13:25:42 11/19/19 19 Advanced Care Planning completed Freddie Quick MD [address] [place] [address], [address], [facility] 11/19/2018 17:54:41 02/08/20 18 Nebulizer Tx completed Ira Lee [facility] 02/07/2018 11:47:12 Imaging Results Imaging Date Name Status LastModified by Organiz ation Details LastModified Time 07/03/2020 XR, hip, unilateral completed [facility] [address], [place], [address], 07/06/2020 15:25:33 Procedure Notes None recorded. Medical Equipment None Reported. Allergies Allergen ID Allergen Name Allergen Category Reaction Reaction Severity Criticality Documentation Date Start Date Code Code System Note Provider Name and Address Organization Details Recorded Time 190081 lisinopri l medicatio n Not available Not available Not available 01/27/2015 97299 RxNorm Worse kenn binne y funct ion Mariann Reyes, [place] [address] [place], [place] [address], [address], [facility] 5 20:42:47 Medications Name Sig Start Date [...] 2nd Gen Pen Needle 32 gauge x /32 USE 1 NEEDLE ONCE A DAY active Not Available Not Available No t Available Vitals Date Recorded Heart rate Oxygen saturation Oxygen saturation in Arterial blood by Pulse oximetry Body weight Systolic blood pressure Diastolic blood pressure Provider Name and Address Organization Details Last Updated DateTime 0 77 /min 95 % 95 % 709310. 75 g 169 mm[Hg] 76 mm[Hg] Cici Reddy [facility] 0 10:09:32 Date Recorded Body height Body mass index (BMI) Body weight Systolic blood pressure Diastolic blood pressure Provider Name and Address Organization Details Last Updated DateTime 06/21/2020 160.02 cm 52.8 kg/m2 360107.5 3 g 160 mm[Hg] 67 mm[Hg] Caroline Mccauley LPN [facility] 1 11:48:22 Date Recorded Systolic blood pressure Diastolic blood pressure Provider Name and Address Organization Details Last Updated DateTime 06/21/2020 116 mm[Hg] 62 mm[Hg] Freddie Quick MD [address] [place] [address], [phone] [place] [address] 06/21/2020 12:28:11 Date Recorded Body height Body mass index (BMI) Body weight Systolic blood pressure Diastolic blood pressure Provider Name and Address Organization Details Last Updated DateTime 07/03/2020 160.02 cm 53.2 kg/m2 283772.5 1 g 136 mm[Hg] 72 mm[Hg] Caroline Mccauley LPN [facility] 1 10:13:01 Date Recorded Body height Body mass index (BMI) Body weight Systolic blood pressure Diastolic blood pressure Provider Name and Address Organization Details Last Updated DateTime 07/24/2020 160.02 cm 53.3 kg/m2 584238 g 160 mm[Hg] 56 mm[Hg] Caroline Mccauley LPN [facility] 1 11:09:40 Social History Question Answer Notes LastModified by Organizat ion Details LastModified Time Tobacco Smoking Status Former Smoker Quit in 2011 Caroline Mccauley LPN [facility] 06/21/2020 11:53:47 What Is Your Level Of Alcohol Consumption? None Information not available 06/12/2014 What Is Your Level Of Caffeine Consumption? Moderate 10/27/- 2-4 [employer] [place] [email or web address] Information not available 10/27/2017 How Much Tobacco Do You Chew? None [email or web address] Information not available 10/07/2016 What Type Of Diet Are You Following? REGULAR Information not available 07/18/2014 Which Illicit Or Recreational Drugs Have You Used? None Information not available 06/12/2014 Do You Or Have You Ever Used E-cigarettes Or Vape? Never Used Electronic Cigarettes Information not available 11/18/2018 Education 2 Year College [email or web address] Informat ion not available 10/27/2017 What Is Your Occupation? Disabled [email or web address] Information not available 10/27/2017 Are There Any Guns Present In Your Home? No Information not available 07/18/2014 Live Alone Or With Others? With Others [email or web address] Information not available 07/18/2014 Patient Has Health Care Proxy Signed And In Chart Yes [email or web address] Information not available 11/18/2018 Marital Status Informatio n not available 07/18/2014 Mosquito Repellent Used Routinely No Information not available 07/18/2014 What Was The Date Of Your Most Recent Tobacco Screening? 07/24/2020 [email or web address] Information not available 07/24/2020 How Many Children [...] not available 07/18/2014 General Stress Level Low [email or web address] Information not available 10/27/2017 Do You Use Sunscreen Routinely? No Information not available 07/18/2014 How Many Years Have You Smoked Tobacco? 42 Information not available 07/18/2014 Sex: Unknown Functional Status None recorded. Mental Status None recorded. Family History Nothing Reported. Medical History Condition Response Obesity Y Hypothyroid Y Hyperlipidemia Y psoriasis Y Diabetes Type II Y Hypertension Y Gynecological History Statement/Question Response Menses Monthly N History of Abnormal Pap N Obstetrics History GPAL:G 0 P 0 0 0 0 Immunizations Vaccine Type Date Status Note Provider Nam e and Address Organization Details Recorded Time Influenza, split virus, quadrivalent, PF 5 completed Not Available [facility] 03/11/2019 02:19:45 Pneumococcal conjugate PCV 13 5 completed Not Available [facility] 03/11/2019 02:19:45 Influenza, split virus, quadrivalent, PF 6 completed Not Available [facility] 03/11/2019 02:21:04 pneumococcal polysaccharide PPV23 7 completed Not Available [facility] 03/11/2019 02:35:34 Td (adult) 3 completed Freddie Quick MD [address] [place] [address], [phone] 10/07/2016 12:07:51 Influenza, split virus, quadrivalent, PF 9 completed Not Available [facility] 03/11/2019 02:24:08 Influenza, split virus, quadrivalent, preservative 8 completed Shannan Burch [facility] 05/17/2018 11:45:44 Influenza, high-dose, quadrivalent, PF 0 [facility] 10:10:31 Past Encounters Encounter ID Performer Location Encounter Start Date Encounter Closed Date Diagnosis/Indication Diagnosis SNOMED-CT Code Diagnosis ICD10 Code Diagnosis Note [id number] Kamryn MORENO, [facility], [address]ICE [address] [place] [address] 06/12/2014 10:14:31 06/14/2014 15:23:52 Benign essential hypertension 0225177 continue to work on diet, exercise, and salt intake as discussed Mixed hyperlipidemia 355489878 Status unknown. Pt unable to tolerate all statins. Work on diet and exercise as tolerated. Will need to review old records to see what she has been on. Hypothyroidism 49115847 Will check TSH Type 2 rolly betes mellitus 61129789 Control unknown. Will check labs and have pt f/u in 4 weeks. Pt not testing her BS at home. c/o neuropathy pain, and gabapentin isn't working as well. Will increase to 4/day. Need to review old records to find last eye exam. Carotid ar arleth stenosis 32891628 Had been seeing vascular doctor in [facility] (can't remember name). Pt will make appt to see him to schedule a f/u ultrasound . Vitamin D deficiency 41919572 Will check levels. Continue weekly ergocalcif emmanuel. Taking vitamin C as recommende d by after right wrist fx. Obesity 698194475 Needs to work on diet and exercise as tolerated. Refer to nutritioni st. [id number] Sofía Johnson FP, [facility], [address] [place] [address] 07/18/2014 10:26:42 07/18/2014 12:07:09 Benign essential hypertension 9212245 continue to work on diet, exercise, and lowering salt intake as discussed Blood pressure at goal Mixed hyperlipidemia 926864205 Cholestero l is not at goal. Start crestor. Pt didn't tolerate lipitor and simvastati n in past due to muscle aches. Others too but she can't remember. Continue to work on diet and exercise as discussed Angina pectoris 968794793 New onset occurring with exertion. None today. Inst to go to ED if develops CP again. In meantime, will make urgent referral to cardiology . Pt with many co-morbidi ties. 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 A1c down to 7.1 which is amazing for her. Keep up the good work. Kidney disease 80259475 Will refer to nephrologi Carotid ar arleth stenosis 10104755 Had been seeing vascular doctor in [facility] (can't remember name). Pt will make appt to see him to schedule a f/u ultrasound . Adult heal th examination [id number] Mariann Reyes NP FP, [facility], [address] [place] [address] 09/06/2014 09:10:14 09/06/2014 10:24:12 Type 2 diabetes mellitus 20526677 sugars running high as she is off metformin due to kidney status. Pt here for insulin teaching and brought her lantus and needles with her. I spent 30 minutes in teaching with the patient. I taught her how to use the insulin pen, injection sites, some basic pathology of Diabetes and how her various meds work, hypo/hyper glycemia s/s and treatment. Pt was able to successful ly inject herself with the insulin. Gave pt 10 units now. Will take another 10 units tonight. Pt inst. to increase her Lantus to 20 units in a few days if her sugars are still high. I did tell pt that she might need to take pre-meal insulin. Pt to test sugars 3x per day. I could also consider placing her on Farxiga. Total visit time 40 minutes. [id number] , [facility], [address] [place] [address] 09/19/2014 09:31:09 09/19/2014 10:44:10 Type 2 diabetes mellitus 41679597 sugars are much better fasting since she started Lantus 2 weeks ago. Previously they were running high as she is off metformin due to kidney status. I did tell pt that she should take pre-meal insulin but at this time, pt deferred to her next visit in 3-4 weeks.. Pt to test sugars 3x per day. I could also consider placing her on Farxiga. Total visit time 35 minutes. Hyperlipidemia 96849992 Pt recently put on crestor. Will repeat lipids in 4 weeks. [id number] Mariann Reyes NP , [facility] [address] [place] [address] 10/25/2014 09:45:42 10/25/2014 10:39:10 Influenza vaccine needed 9140419632 106 Administra tion of pneumococcal vaccine 66182205 Type 2 rolly betes mellitus 95088857 Significan tly improved on current regimen. I expect her next A1C to be in target. Benign ess ential hypertension 7397818 Not at target today. Lisinopril was discontinu ed due to kidney problems and pt hasn't been taking Lasix regularly because her swelling has been good. Inst to take the Lasix regularly as it also helps with BP! Hyperlipidemia 14007307 Lipids much improved on crestor and in target Active or passive immunization 880489301 Kidney disease 26428620 Active with nephrologi st. We haven't received notes yet. [id number] MK Warner, [facility], [address] [place] [address] 01/24/2015 09:37:01 01/24/2015 11:11:32 Type 2 diabetes mellitus 23243900 E11.21 E11.42 A1C 7.2. Down from 8.3. Pt is really trying with her diet. Unable to exercise. Significan tly improved on current regimen. Kidney disease 91209224 N08 Active with roxi brower, who recently put pt on verapamil. Lisinopril caused worsening kidney function. Dr. Negrete wants pt's BP results. BP not in target. Increased verapamil to 180 mg QD Benign ess ential hypertension 9058100 I10 Not at target today. Lisinopril was discontinu ed due to kidney problems. Was started on verapamil by nephjean-paul brower. Will increase to 180 continue to work on diet, exercise, and lowering salt intake as discussed Hyperlipidemia 88183499 E78.5 Lipids much improved on crestor and in target Insulin tr eated type 2 diabetes mellitus 387517562 Z79.4 Lumbar radiculopathy 128 788863 M54.16 and multiple joint pain. Pt going to make appt at [facility]. [id number] Mariann Reyes NP FP, [facility] [address] [place] [address] 06/05/2015 09:39:21 06/05/2015 10:56:34 Hyperlipidemia 27970836 E78.5 Lipids much improved on crestor and in target. Pt hadn't been taking it recently. Inst to restart 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 235085775 E11.610 Gabapentin is helpful for neuropathy pain. Type 2 rolly betes mellitus 12892563 E11.21 E11.42 A1C 7.4. NOt bad for her. Pt is really trying with her diet. Unable to exercise much due to pain Significan tly improved on current regimen. Hypothyroidism 64436361 E03.9 Benign ess ential hypertension 3314835 I10 Blood pressure at goal . Active with nephrologs it Psoriasis 2946147 L40.9 Inst pt to get a handle withspong on the end to both wash her feet and to apply steroid cream to psoriasis plaque on top of foot. Vitamin D deficiency 347 12729 E55.9 Vitamin D slightly low. Continue weekly ergocalcif emmanuel. Add Vitamin D3 1000 iu daily Angina pectoris 49436754 0 I20.9 No episodes. Active with Cardiologi st Lumbar radiculopathy 128 044041 M54.16 Chronic back pain Morbid obesity 448250035 E66.01 Has had 14 pound weight gain. Pt going to try to start walking a bit more. Suggested she get a fit bit to monitor her walking and help her make daily and weekly goals. Pt eats healthy during the day and can binge a little at night. [id number] Mariann Reyes NP , [facility], [address] [place] [address] 09/05/2015 09:58:34 09/05/2015 11:42:27 Adult health examination 148374650 Z00.00 60 year old obese female here for routine PHA. QM up to date except she has refused colonoscop y.She has many medical problems and hasn't always followed through on recommenda tions. see Risk Assessment and Lifestyle Change Counseling section above Benign ess ential hypertension 4125719 I10 BP at target. Continue current regimen. Lumbar radiculopathy 128 601488 M54.16 Chronic pain. Has seen specialist s in the past but never followed through recently to see [facility]. Unable to walk more than half a block. Will send back to [facility]SS. Pt wants me to order an MRI, but she isn't c/o radiculopa thy, so I am unsure that it will have changed- although we do not have a copy of her last MRI. Angina pectoris 12040243 0 I20.9 Stable . No recent cp. On ASA. 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 088407827 E11.610 chronic pain. Gabapentin helps. Morbid obesity 813307116 E66.01 Weight down 4 pounds. Vitamin D deficiency 347 06630 E55.9 On vitamin D supplement s. Hypothyroidism 97157396 E03.9 Establishe d stable. Cont current regimen Type 2 rolly betes mellitus 15550101 E11.21 E11.42 Uncontroll ed with neuropathy and proteinuri a. Latest a1c 7.6 , not bad. 30 day average blood sugar on meter is 140. Continue current regimen Hyperlipidemia 63051700 E78.5 Continue on Crestor. Due for lipid level. Carotid ar arleth stenosis 02440607 I65.29 Active with vascular. Stable. Saw him last week. Left has been 100% blocked but unchanged. On ASA. Psoriasis 5755881 L40.9 stable. Continue current regimen. Will refer to Rheumatolo gist to r/o and treat psoriatic arthritis due to all her joint pain. Kidney disease 47583797 N08 cret 1.5. Stable . Active with renal. Unable to be on JOEY/ARB due to renal. Greater tr ochanteric pain syndrome 0416206 M70.60 chronic issue, blilat. hopefully physiatry appt can help with this too. Multiple joint pain 3567 8005 M25.50 Multiple joint pain including hands, wrists, fingers, knees, back, neck ankles , hips. [id number] Mariann Reyes NP FP, [facility], [address] [place] [address] 12/17/2015 09:30:01 12/17/2015 10:45:44 Benign essential hypertension 6859227 I10 BP high today, but was after pt struggled to get off the exam table. She is active with nephrologi st who manages her BP. Pt inst continue to work on diet, exercise, and lowering salt intake as discussed Mixed hyperlipidemia 267 987986 E78.2 continue to work on diet and exercise as discussedC ontinue on Crestor. Over due for lipids. 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 Gabapentin helps. Morbid obesity 366859247 E66.01 Will stop actos to see if this helps. Pt very discourage d. Multiple complications due to type 2 diabetes mellitus 747394074 E11.8 Uncontroll ed but stable. Will stop actos due to pt's concern of weight gain. Otherwise, continue current regimen Hypothyroidism 65059790 E03.9 Establishe d stable. Cont current regimen [id number] Mariann Reyes NP FP, [facility], [address] [place] [address] 02/19/2016 11:54:40 02/19/2016 12:47:06 Abscess 901469403 L02.91 Right buttock - drained on its own and is healing nicely. No antibiotic s needed. Pt inst to continue using hot packs and letting the hot water from the shower spray on the area. [id number] Mariann Reyes NP FP, [facility], [address] [place] [address] 03/17/2016 11:30:42 03/17/2016 12:52:25 Benign essential hypertension 1692133 I10 BP in target today. She is active with nephrologjaison brower who manages her BP. Pt inst continue to work on diet, exercise, and lowering salt intake as discussed Multiple complications due to type 2 diabetes mellitus 454027812 E11.8 Uncontroll ed. A1c went up because of the holidays and because pt stopped Actos. She went back on Actos and FBS are in target. Will see what next A1C is and continue current regimen. Medication monitoring 39 8857963 Z51.81 Screening for malignant neoplasm of colon 669103393 Z12.11 Pt willing to do first colonoscop y Morbid obesity 395331239 E66.01 Pt lost 3 pounds. Is more active. Hyperlipidemia 72733463 E78.5 Continue on Crestor. LDL in target. Carotid ar arleth stenosis 22767792 I65.29 On ASA. Need to check if pt made appt to se her vascular doctor to schedule a f/u ultrasound . [id number] Mariann Reyes NP FP, [facility], [address] [place] [address] 04/01/2016 13:16:50 04/01/2016 14:22:09 Bronchitis 63539117 J40 Pt doing alot better after being in the ER for bronchitis . Cough still keeping her up at night. She is still using her albuterol PRN. Has 2 prednisone pills left. [id number] MK Warner, [facility], [address] [place] [address] 06/04/2016 14:14:52 06/04/2016 15:31:53 Benign essential hypertension 8736862 I10 BP at goal. continue to work on diet, exercise, and lowering salt intake as discussed Mixed hyperlipidemia 267 030802 E78.2 At goal. Continue to work on diet and exercise as discussed Morbid obesity 434078913 E66.01 Pt wants Bariatric referral to discuss potential surgery for weight loss. Pt with many health problems Multiple complications due to type 2 diabetes mellitus 714236473 E11.8 Complicate d with proteinuri a. Is at goal with A1c 7.3. Improved since last visit. Recurrent depression 191 521862 F33.9 Pt doesn't want medication s. But will consider counseling . Will look for someone closer to her home. Active or passive immunization 789675527 Z23 [id number] Mariann Reyes NP , [facility], [address] [place] [address] 08/20/2016 10:05:23 08/20/2016 11:08:41 Pre-surgery evaluation 058174131 Z01.818 Pt came in today for pre-op for colonoscop y. I am assuming it was due to her high risk status. EKG was sinus rhythm with t-wave abnormalit y but unchanged from 2014. Pt didn't have her labs drawn for CBC and BMP. Patient has a low exercise tolerance but no angina and has been very stable. I recommend her to PROCEED with the colonoscop y with Dr. Gonsales. Multiple complications due to type 2 diabetes mellitus 935368863 E11.8 A1C down to 6.8. Fabulous for patient. Instrucete d her to hold her glimiperid e the day before and the day of her colonoscop y. Inst to reduce her Lantus to 20 units the night before. If she is having any low symptoms, she can suck on a hard candy. [id number] Freddie Quick MD , [facility], [address] [place] [address] 10/07/2016 11:17:11 10/07/2016 12:37:17 Adult health examination 855612992 Z00.00 See Risk Assessment and Lifestyle Change Counseling section above. Would like to defer screening colonoscop y due to anesthesia concern with her carotid stenosis. Requested for a clearance by her Vascular Surgeon. Pap UTD (due in 2018). Declines breast cancer screening. Td vaccine UTD. Benign ess ential hypertension 7141306 I10 BP well controlled on current regimen. Also followed by Nephrology . Continue current care. Signficant ly improved her diet. Multiple complications due to type 2 diabetes mellitus 688466891 E11.8 Recent Hgb A1c 6.8 (07/2016). Struggles with polypharma cy. Has been on Lantus and Glipizide for quite some time. Frustrated with increased weight gain despite improving Hgb A1c. Will refer to Endocrine. Morbid obesity 800408296 E66.01 Previously considered a bariatric surgery, but now deferring. Encourage with diet support. Vitamin D deficiency 347 40084 E55.9 On supplement s. Hypothyroidism 64670452 E03.9 No recent TSH reading. Will check with her lab orders from Dermatolog y. Continue with current dose of Levethyrox ine 50mcg daily. Hyperlipidemia 12610465 E78.5 Stable. Carotid ar arleth stenosis 72398739 I65.29 Also with PVD. Followed by Dr. Davila (Vascular Surgery). Scheduled for VIKKI and Carotid US. Psoriasis 2401009 L40.9 Seeing LAWRENCE Jason at [facility]. On MTX 15mg PO weekly with Folic Acid supplement ation. Overall improved skin lesions. Getting routine CBC anc CMP. [id number] Chanda Dias MD , [facility], [address] [place] [address] 05/06/2017 13:34:45 05/06/2017 14:59:00 Benign essential hypertension 7428962 I10 at goal on recheck Morbid obesity 195831017 E66.01 feels she cannot control her weightcann ot exercise due to weightlimi lillian mobility to apptsopen to nutrition and therapy [place] will meet her today Herpes zoster 8843890 B0 2.9 discussed supportive carenatura l progressio n and pain mgmtsx started 5 days ago, too late for antivirals Lumbar radiculopathy 128 780168 M54.16 very deconditio zacarias with poor mobility and ROMagreeab le to doing PT, at least one visit for eval and HEP but can likely come more oftenthis seems separate from chief complaint today which is largely I believe shingles related painshe is very limited by her obesity [id number] Freddie Quick MD , [facility], [address] [place] [address] 10/27/2017 11:24:56 10/27/2017 12:20:18 Adult health examination 618428985 Z00.00 See Risk Assessment and Lifestyle Change Counseling section above. Would like to defer screening colonoscop y due to anesthesia concern with her carotid stenosis. Requested for a clearance by her Vascular Surgeon. Pap UTD (with negative HPV in 06/2014). Recommend 5-year surveillan ce in 2020) Declines breast cancer screening due to bad experience with previous mammogram and multiple biopsies (all benign). Denies breast pain or discharge. Td vaccine UTD. Declines Shingles vaccine. Depression screening 171 784901 Z13.89 Depression screening tool administer ed, entered into emr, scored and discussed, time greater than 7.5 minutes. Benign ess ential hypertension 1317817 I10 BP fairly controlled on current regimen. Also followed by Nephrology . Continue current care. Signficant ly improved her diet. Multiple complications due to type 2 diabetes mellitus 761512667 E11.8 Recent Hgb A1c 6.9 (08/2017). Struggles with polypharma cy. Has been on Lantus 25 units at night, Glipizide 10mg bid and Actos 15mg daily. Frustrated with increased weight gain despite improving Hgb A1c. Seeing Dr. Danny Harris (Endocrine ). MA/Cr elevated at 1028 (08/2017). Met with director of accounts payable Riley Siu RD. Morbid obesity 560740101 E66.01 Previously considered a bariatric surgery, but now deferring. Encourage with diet support. Good dietary intake. Can't exercise. Will be seeing Dr. Yina Jones (weight management ). Vitamin D deficiency 347 43729 E55.9 On supplement s. Hypothyroidism 15840518 E03.9 Recent TSH 3.83 (08/2017). Continue with current dose of Levothyrox ine 75mcg daily. Hyperlipidemia 08875454 E78.5 Stable. LDL 82 and HDL 47. Currently on Rosuvastat in 10mg qhs. Carotid ar arleth stenosis 44069988 I65.29 Also with PVD. Followed by Dr. Davila (Vascular Surgery). Scheduled for VIKKI and Carotid US. Seen Vascular (08/2017). stable carotid artery stenosis on the right with chronic left internal carotid occlusion. Recommende d to repeat carotid duplex in 6 months. Psoriasis 3893857 L40.9 Seeing LAWRENCE Jason at [facility]. On MTX 15mg PO weekly with Folic Acid supplement ation. Overall improved skin lesions. Getting routine CBC anc CMP. Chronic ki dney disease 659116151 N18.9 BUN/Cr 39/1.9 (GFR 28). Seeing Massimoli. [id number] Freddie Quick MD , [facility], [address] [place] [address] 02/07/2018 10:19:41 02/08/2018 12:34:20 Dyspnea on exertion 43986984 R06.09 Hypoxia 614921528 R09.02 desats to 82 with exertion Chest pain 99052080 R07. 9 r/o MIEKG with acute changes from prior, ST depression ASA givenOn 2L 77338 contacted; pt currently refusing to go toED via amb [id number] Freddie Quick MD , [facility], [address] [place] [address] 05/17/2018 11:35:27 05/17/2018 12:28:00 Benign essential hypertension 8703164 I10 BP borderline on current regimen. Also followed by Nephrology . Continue current care. Signficant ly improved her diet. Will monitor Multiple complications due to type 2 diabetes mellitus 001491702 E11.8 Recent Hgb A1c slightly worsened to 7.3 (04/2018). Struggles with polypharma cy. Has been on Lantus 30 units at night and Glipizide 10mg bid. Concerned of Actos possibly precipitat ing CHF. This was discussed with patient. She is aware. Will further discuss with her endocrinol ogist. Frustrated with increased weight gain despite improving Hgb A1c. Seeing Dr. Danny Harris (Endocrine ). Met with director of accounts payable Riley Siu RD. Morbid obesity 398340460 E66.01 Previously considered a bariatric surgery, but now deferring. Encourage with diet support. Good dietary intake. States she can't exercise. Planned to see Dr. Yina Jones (weight management ). Vitamin D deficiency 347 05873 E55.9 On supplement s. Hypothyroidism 72029570 E03.9 Recent TSH 3.43 (03/2018). Continue with current dose of Levothyrox ine 75mcg daily. Hyperlipidemia 00991863 E78.5 Stable. Previous LDL 82 and HDL 47. Currently on Rosuvastat in dose increased to 40mg qhs since hospitaliz ation. Carotid ar arleth stenosis 17924497 I65.29 Also with PVD. Followed by Dr. Davila (Vascular Surgery). Stable carotid artery stenosis on the right with chronic left internal carotid occlusion. Recommende d to repeat carotid duplex in 6 months. Psoriasis 7648683 L40.9 Seeing LAWRENCE Jason at [facility]. Was on MTX 15mg PO weekly with Folic Acid supplement ation.Now on Humira. Overall improved skin lesions. Getting routine CBC anc CMP. Chronic ki dney disease 726401628 N18.9 Seeing Caden. [id number] Freddie Quick MD , [facility], [address] [place] [address] 11/18/2018 10:37:47 11/18/2018 11:48:06 Adult health examination 506739626 Z00.00 See Risk Assessment and Lifestyle Change Counseling section above. Would like to defer screening colonoscop y due to anesthesia concern with her carotid stenosis. Requested for a clearance by her Vascular Surgeon. Pap UTD (with negative HPV in 06/2014). Recommend 5-year surveillan ce in 2020) Declines breast cancer screening due to bad experience with previous mammogram and multiple biopsies (all benign). Denies breast pain or discharge. Td vaccine UTD. Declines Shingles vaccine. Depression screening 171 760655 Z13.89 depression screening tool administer ed, entered into emr, scored and discussed, time greater than 7.5 minutes Active or passive immunization 148446934 Z23 Benign ess ential hypertension 4697956 I10 BP borderline on current regimen. Also followed by Nephrology . Continue current care. Signficant ly improved her diet. Will monitor f/u in 6 months Multiple complications due to type 2 diabetes mellitus 141871785 E11.8 Recent Hgb A1c slightly worsened to 7.6 (10/2018). Struggles with polypharma cy. Has been on Lantus 26 units at night (reports she lowered it on her own to 22 units) and Glipizide 10mg bid. Concerned of Actos possibly precipitat ing CHF. This was discussed with patient. She is aware. Will further discuss with her endocrinol ogist. Seeing Dr. Danny Harris (Endocrine ) who recommende d adding a short-acti ng insulin, but has not decided to start. Discussed the option of CGM. Met with director of accounts payable Riley Siu RD. F/u in 6 months Morbid obesity 157425370 E66.01 Previously considered a bariatric surgery, but now deferring. Encourage with diet support. Good dietary intake. States she can't exercise. Planned to see Dr. Yina Jones (weight management ). Vitamin D deficiency 347 11894 E55.9 On supplement s. Hypothyroidism 71404013 E03.9 Recent TSH 3.05 (08/2018). Continue with current dose of Levothyrox ine 75mcg daily. Hyperlipidemia 50134421 E78.5 Stable. Previous LDL 82 and HDL 47. Currently on Rosuvastat in dose increased to 40mg qhs since hospitaliz ation. Carotid ar arleth stenosis 23325458 I65.29 Also with PVD. Followed by Dr. Davila (Vascular Surgery). Stable carotid artery stenosis on the right with chronic left internal carotid occlusion. Recommende d to repeat carotid duplex in 6 months. Psoriasis 5902578 L40.9 Seeing LAWRENCE Jason at [facility]. Was on MTX 15mg PO weekly with Folic Acid supplement ation.Now on Humira. Overall improved skin lesions. Getting routine CBC anc CMP. Chronic ki dney disease 676194163 N18.9 Seeing Caden. Screening for malignant neoplasm of colon 882373182 Z12.11 Discussed the importance of colonoscop y and pt declines at this time. Denies any GI bleeding symptoms. Discussed FIT. Constipation 72631807 K5 9.00 Currently using lactulose that she bought in [place]. Defers refill today. May call for medication if needed. Currently using it prn. Low back pain 679171372 M54.5 Lowe back pain in the paraverteb ral areas of L1-2. Discussed Aspercreme with topical lidocaine. Check X-ray. F/u in 6 months [id number] Freddie Quick MD , [facility], [address] [place] [address] 12/08/2019 09:57:53 12/11/2019 11:31:41 Hyperlipidemia 81698392 E78.5 Previous LDL 82 and HDL 47. Due to repeat. New order sent to [facility]. Currently on Rosuvastat in dose increased to 40mg qhs since hospitaliz ation. Multiple complications due to type 2 diabetes mellitus 252733488 E11.8 Hgb A1c improved to 6.3 (11/2019). Continuing with Lantus and Glipizide. Actos discontinu ed previously due to perceived side effects of precipitat ing CHF. Seeing Dr. Danny Harris (Endocrine ) who recommende d adding a short-acti ng insulin, but has not decided to start. Discussed the option of CGM. Met with director of accounts payable Riley Siu RD. Benign ess ential hypertension 4935892 I10 BP elevated today. Would like to check her home BP consistent ly before making adjustment s. Also followed by Nephrology . Continue current care. Signficant ly improved her diet. Chronic ki dney disease 713511681 N18.9 Seeing Caden. Hypothyroidism 90207988 E03.9 Continue with current dose of Levothyrox ine 75mcg daily. Carotid ar arleth stenosis 54329845 I65.29 Also with PVD. Followed by Dr. Davila (Vascular Surgery). Stable carotid artery stenosis on the right with chronic left internal carotid occlusion. Psoriasis 5171794 L40.9 Seeing LAWRENCE Jason at [facility]. Was on MTX 15mg PO weekly with Folic Acid supplement ation. Then changed to Humira. Overall improved skin lesions. Getting routine CBC anc CMP. Vitamin D deficiency 347 96890 E55.9 On supplement s. Morbid obesity 295142417 E66.01 Previously considered a bariatric surgery, but now deferring. Encourage with diet support. Good dietary intake. States she can't exercise. Planned to see Dr. Yina Jones (weight management ). Screening for malignant neoplasm of colon 020112234 Z12.11 Discussed the importance of colonoscop y and pt declines at this time. Denies any GI bleeding symptoms. Discussed FIT. Constipation 84609535 K5 9.00 Currently using lactulose that she bought in [place]. Defers refill today. May call for medication if needed. Currently using it prn. Anemia 698211663 D64.9 [id number] Ana Mc MA , [facility], [address] [place] [address] 12/08/2019 09:59:45 12/11/2019 10:11:59 Active or passive immunization 714923198 Z23 [id number] Freddie Quick MD , [facility], [address] [place] [address] 06/21/2020 11:46:12 06/24/2020 14:55:36 Hyperlipidemia 62658340 E78.5 Recent lipid panel within normal. Currently on Rosuvastat in 40mg qhs. Tolerating the medication well. Multiple complications due to type 2 diabetes mellitus 479882146 E11.8 Hgb A1c at 7.5 (04/29/2020) . Continuing with Lantus and Glipizide. Actos previously discontinu ed due to perceived side effects of precipitat ing CHF, but was added back without worsening cardiac symptoms. Seeing Dr. Danny Harris (Endocrine ) who recommende d adding a short-acti ng insulin, but has not decided to start. Discussed the option of CGM. Met with director of accounts payable Riley Sui RD. Benign ess ential hypertension 5483588 I10 BP elevated at a specialist office, but reports home BP 116/62. States she was previously diagnosed with white-coat HTN. Recommende d to check her home BP more consistent ly. Also followed by Nephrology . Continue current care. Dina lakhani improved her diet. 116/62 Chronic ki dney disease 895267419 N18.9 Seeing Caden. Hypothyroidism 64080207 E03.9 Continue with current dose of Levothyrox ine 75mcg daily. Carotid ar arleth stenosis 69325910 I65.29 Also with PVD. Followed by Dr. Davila (Vascular Surgery). Stable carotid artery stenosis on the right with chronic left internal carotid occlusion. Psoriasis 7703771 L40.9 Seeing LAWRENCE Jason at [facility]. Was on MTX 15mg PO weekly with Folic Acid supplement ation. Then changed to Humira. Overall improved skin lesions. Getting routine CBC and CMP. Vitamin D deficiency 347 54652 E55.9 On supplement s. Morbid obesity 991908685 E66.01 Previously considered a bariatric surgery, but now deferring. Encourage with diet support. Good dietary intake. States she can't exercise. Planned to see Dr. Yina Jones (weight management ). Screening for malignant neoplasm of colon 792350415 Z12.11 Discussed the importance of colonoscop y and pt declines at this time. Denies any GI bleeding symptoms. Discussed FIT. Constipation 69094831 K5 9.00 Previously used lactulose that she bought in [place]. Also on Colace prn. Hip pain 40033147 M25.55 9 In-person evaluation recommende d. Will schedule. [id number] Freddie Quick MD , [facility], [address] [place] [address] 07/03/2020 09:16:45 07/03/2020 10:37:27 Trochanteric bursitis of right hip 0444882449 13880 M70.61 Trochanter ic bursitis of left hip 8458525683 98372 M70.62 Previously diagnosed by Sports Medicine. Pain in the greater trochanter ic area. Undergone PT. Trochanter ic bursa corticoste roid injection administer ed under a sterile technique. Patient tolerated the procedure well. Advised to monitor for any worsening pain, bleeding, fever or other concerns. Advised to return in 2-3 weeks for the right side. Understand s and agrees with the plan. [id number] Freddie Quick MD , [facility], [address] [place] [address] 07/24/2020 11:00:32 07/24/2020 11:39:05 Trochanteric bursitis of left hip 9160240291 10743 M70.62 Previously received the left trochanter ic injection with improved symptoms. Trochanter ic bursitis of right hip 1778024236 98441 M70.61 Previously diagnosed by Sports Medicine. Pain in the greater trochanter ic area. Undergone PT. Right trochanter ic bursa corticoste roid injection administer ed under a sterile technique. Patient tolerated the procedure well. Advised to monitor for any worsening pain, bleeding, fever or other concerns. Understand s and agrees with the plan. Health Concerns Section Related Observation LastModified by Organization Detai ls LastModified Time None Recorded Concern Status LastModified by Organization Details LastModified Time None Recorded Advance Directives Directive None Recorded Payers Encounter Date Sequence Insurance Name Policy Number Policy Bell Covered Member ID Bell Member ID Guarantor Name 12/08/2019 2 [place] [facility] Kiara Yen Stafinmaryi [id number] Kiara Stakariei 12/08/2019 1 [employer] [place] [id number] Jovanny Adani [id number] Kiara Adani 12/08/2019 2 [place] [facility] Kiara B Stafinski [id number] 6 Kiara Stafinmaryi 12/08/2019 1 [employer] [id number] Jovanny Adani [id number] Kiara Stakariei 06/21/2020 2 [place] [facility] Kiara Arellanoi [id number] Kiara Arellanoi 06/21/2020 1 [employer] [place] Balbir SMITH-MULU (EPO) [id number] Jovannymartha Pollack [id number] Kiara Grantski 07/03/2020 2 [place] [facility] Kiara Arellanoi [id number] Kiara Arellanoi 07/03/2020 1 [employer] [place] [facility] [place] (EPO) [id number] Jovannyclint Arellanoi [id number] Kiara Grantski 07/24/2020 2 [place] [facility] Kiara Arellanoi [id number] 6 Kiara Russofinmaryi 07/24/2020 1 [employer] [place] Balbir SMITH-[place]UL[place] (EPO) [id number] Jovanny Adani [id number] Kiara Arellanoi Notes Date Note Type Note Provider Name [...] Quite frustrated with her weight. Previously saw director of accounts payable, Riley Siu RD. Discussed labs. Discussed health care proxy and to share with family her thoughts and plans. Recent labs did not include Lipid panel, was sent to [facility] per patient request. Recently found [...] Influenza vaccine administered today. Freddie Quick MD [address] [place] [address], [phone], [facility] 12/08/2019 13:29:31 1 text/html [facility] DiabetesReported bypatient.Review finger sticks:[id number] usually <100; 30 day average 80-115 Duration:chronic [...] Quite frustrated with her weight. Recently saw director of accounts payable, Riley Siu RD. Discussed labs. Discussed health care proxy and to share with family her thoughts and plans. Refuses COVID-19 vaccinations. States bilateral lateral hip pain. Suspects bursitis. No radiating pain. No swelling. Freddie Quick MD [address] [place] [address], [phone], [facility] 06/21/2020 20:43:59 1 text/html Patient with bilateral lateral hip pain in the greater trochanter areas. No trauma or fall. Underlying severe obesity. Chronic since 2012. Previously evaluated by outside Sports Medicine and was diagnosed with trochanteric bursitis. Never had injections. Underlying diabetes. Increased pain with movements, prolonged standing and adduction. Freddie Quick MD [address] [place] [address], [phone], [facility] 07/03/2020 13:29:44 1 text/html Present for right [...] in her pain. Freddie Quick MD [address] [place], [phone], [facility] 07/24/2020 11:44:18 OBGyn Episode No OBEpisode recorded.
--- OUTSIDE RECORDS SUMMARY | 2024-05-22 14:55 | XMS_ITS | Encounter Summary ---
Author Organization [facility] Address [address] [place] [id number] Care Team Providers Care Mounter Sousaphones Name Role Phone Dana Brennan MD Primary Care Provider + Encounter Details Date Type Department Care Team (Late st Contact Info) Description 05/06/2024 Lab Requisition [facility] [address] [facility] [place] [address] Dana Brennan MD [address] [facility] [address] [place], [place] [id number] Acute kidney failure, unspecified (CMS/HCC); Chronic kidney [...] Associated Diagnosis Comments COMPLETE BLOOD COUNT Routine 05/08/2024 6:26 AM EDT Acute kidney failure, unspecified (CMS/HCC) Chronic kidney disease, stage 4 (severe) (CMS/HCC) Hypothyroidism, unspecified Type 2 diabetes mellitus without complications (CMS/HCC) Hyperlipidemia, unspecified BASIC METABOLIC PANEL Routine 05/08/2024 6:26 AM EDT Acute kidney failure, unspecified (CMS/HCC) Chronic kidney disease, stage 4 (severe) (CMS/HCC) Hypothyroidism, unspecified Type 2 diabetes mellitus without complications (CMS/HCC) Hyperlipidemia, unspecified documented in this encounter Results * (ABNORMAL) Basic metabolic panel (05/08/2024 6:26 AM EDT) Sodium 138 133 - 145 mmol/L LAB CHEMISTRY METHOD 05/08/2024 10:[address] [facility] Potassium 3.9 3.5 - 5.5 mmol/L LAB CHEMISTRY METHOD 05/08/2024 10:[address] [facility] Chloride 100 96 - 110 mmol/L LAB CHEMISTRY METHOD 05/08/2024 10:[address] [facility] CO2 30 21 - 32 mmol/L LAB CHEMISTRY METHOD 05/08/2024 10:[address] [facility] Anion Gap 8 3 - 11 LAB CHEMISTRY METHOD 05/08/2024 10:[address] [facility] Glucose 94 70 - 100 mg/dL LAB CHEMISTRY METHOD 05/08/2024 10:[address] [facility] BUN 39(H) 5 - 25 mg/dL LAB CHEMISTRY METHOD 05/08/2024 10:[address] [facility] Creatinine 6.18(H) 0.50 - 1.10 mg/dL LAB CHEMISTRY METHOD 05/08/2024 10:[address] [facility] eGFR 7(L) >=60 mL/min/1. 73m2 LAB CHEMISTRY METHOD 05/08/2024 10:[address] [facility] Comment:Calculation based on the??Chronic Kidney Disease Epidemiology Collaboration (CKD-EPI) equation refit??without adjustment for race. BUN/Creatinine Ratio 6.3 LAB CHEMISTRY METHOD 05/08/2024 10:[address] [facility] Calcium 8.6 8.5 - 10.5 mg/dL LAB CHEMISTRY METHOD 05/08/2024 10:[address] [facility] Blood Venous blood specimen / Unknown Venipuncture / Unknown 05/08/2024 6:26 AM EDT 05/08/2024 9:35 AM EDT Dana Brennan MD LAB BLOOD ORDERABLES Fin al Result [facility] [address] [place] [address], * (ABNORMAL) Complete blood count (05/08/2024 6:26 AM EDT) [facility] WBC 4.9 4.8 - 10.8 K/mcL LAB HEMETOLOGY METHOD 05/08/2024 11:[address] [facility] RBC 2.70(L) 3.80 - 4.80 M/mcL LAB HEMETOLOGY METHOD 05/08/2024 11:[address] [facility] Hemoglobin 8.3(L) 11.5 - 16.0 g/dL LAB HEMETOLOGY METHOD 05/08/2024 11:[address] [facility] Hematocrit 28.1(L) 35.0 - 47.0 % LAB HEMETOLOGY METHOD 05/08/2024 11:[address] [facility] MCV 104.9(H) 79.0 - 98.0 FL LAB HEMETOLOGY METHOD [facility] MCH 31.0 27.0 - 32.0 pcg LAB HEMETOLOGY METHOD 05/08/2024 11:[address] [facility] MCHC 29.5(L) 32.0 - 37.0 g/dL LAB HEMETOLOGY METHOD 05[facility]24 [facility] RDW 18.4(H) 11.0 - 15.0 % LAB HEMETOLOGY METHOD 05[facility]24 [facility] Platelets 51(L) 130 - 400 K/mcL LAB HEMETOLOGY METHOD 05/08/2024 11:[address] [facility] Comment:previously verified by slide MPV 10.6 7.0 - 11.0 FL LAB HEMETOLOGY METHOD 05/08/2024 11:[address] [facility] NRBC 0.0 <1.0 % LAB HEMETOLOGY METHOD 05/08/2024 11:[address] [facility] NRBC Absolute 0.00 <0.10 K/mcL LAB HEMETOLOGY METHOD 05/08/2024 11:[address] [facility] Blood Venous blood specimen / Unknown Venipuncture / Unknown 05/08/2024 6:26 AM EDT 05/08/2024 9:35 AM EDT Dana Brennan MD LAB BLOOD ORDERABLES Fin al Result [facility] [address] [place] [address], documented in this encounter Visit Diagnoses Diagnosis Acute kidney failure, unspecified (CMS/HCC) Acute kidney failure, unspecified Chronic kidney disease, stage 4 (severe) (CMS/HCC) Hypothyroidism, unspecified Type 2 diabetes mellitus without complications Hyperlipidemia, unspecified documented in this encounter Care Teams Mounter Sousaphones Relationship Specialty Start Date End Date Dana Brennan MD [address] [place] [address] PCP - General Family Medicine 04/27/24 documented as of this encounter
== END 2024-05-22 14:17 | disposition home or self-care (01) ==
LOC: HO.HMCC 13:12
PROVIDERS: PCP Nurse Practitioner Family; Visit Provider Nurse Practitioner Family
DX: I50.9 Heart failure, unspecified (principal); N18.6 End stage renal disease; Z99.2 Dependence on renal dialysis

== ENCOUNTER → 2024-05-22 13:12 | Outpatient (BNVA) | payer OTHER, MEDICAID, SELFPAY | PROVIDERS: PCP Nurse Practitioner Family; Visit Provider Nurse Practitioner Family | DX: I50.9 Heart failure, unspecified (principal); N18.5 Chronic kidney disease, stage 5; Z99.2 Dependence on renal dialysis | CPT/HCPCS: 96127 ==